=== PATIENT | male | born 1950 | race Caucasian/White ===

== ENCOUNTER → 2017-07-03 | Outpatient (CLI) | payer MEDICARE, OTHER ==
[2017-07-03 09:57] LABS: Basophils % (A) 1 %; CH 31.3; CHCM 33.9; Eosinophils # (A) 0.1 k/uL (0-0.7); Eosinophils % (A) 2 %; HCT 43.6 % (39.0-53.0); HDW 2.73; HGB 14.4 gm/dL (13.0-17.5); Luc # (Auto) 0.21; Luc % (Auto) 3; Lymphocytes # (A) 1.7 k/uL (1.0-4.8); Lymphocytes % (A) 23 %; MCH 30.6 pg (25.0-35.0); MCV 92.7 fL (80.0-100.0); Mean Platelet Volume 7.5; Monocytes # (A) 0.5 k/uL (0-1.0); Monocytes % (A) 7 %; Neutrophils # (A) 4.8 k/uL (1.3-7.7); Neutrophils % (A) 66 %; RDW 12.8 % (11.5-15.5); WBC 7.3 k/uL (3.8-10.6); WBC (Perox) 7.43
[2017-07-03 10:14] LABS: ALT 50 U/L (21-72); AST 32 U/L (17-59); Alkaline Phosphatase 56 U/L (38-126); Anion Gap 6 mmol/L; Blood Urea Nitrogen 12 mg/dL (9-20); Calcium 9.1 mg/dL (8.4-10.2); Carbon Dioxide 31 mmol/L (22-30); Chloride 102 mmol/L (98-107); Cholesterol 127 mg/dL (<200); Glucose 93 mg/dL (74-99); HDL Cholesterol 35 mg/dL (40-60); Non-African American GFR(MDRD) >60 (>60 ml/min/1.73 sqM); Potassium 4.4 mmol/L (3.5-5.1); Sodium 139 mmol/L (137-145); Total Bilirubin 0.6 mg/dL (0.2-1.3)
== END | disposition home or self-care (01) ==
LOC: LABWHC1 09:07
PROVIDERS: ATTEND Internal Medicine
DX: E78.5 Hyperlipidemia, unspecified (principal); I10 Essential (primary) hypertension
CPT/HCPCS: 36415; 80053; 80061; 84439; 84443; 85025; 86803

== ENCOUNTER → 2018-06-26 | Outpatient (CLI) | payer MEDICARE, OTHER | END | disposition home or self-care (01) | LOC: LABWHC1 09:02 | PROVIDERS: ATTEND Internal Medicine | DX: Z53.9 Procedure and treatment not carried out, unspecified reason (principal) ==

== ENCOUNTER → 2018-07-06 | Outpatient (CLI) | payer MEDICARE, OTHER ==
[2018-07-06 09:02] LABS: Basophils % (A) 1 %; Eosinophils # (A) 0.1 k/uL (0-0.7); Eosinophils % (A) 2 %; HCT 43.5 % (39.0-53.0); HGB 14.7 gm/dL (13.0-17.5); Lymphocytes # (A) 1.5 k/uL (1.0-4.8); Lymphocytes % (A) 30 %; MCH 30.3 pg (25.0-35.0); MCHC 33.7 g/dL (31.0-37.0); MCV 89.8 fL (80.0-100.0); Mean Platelet Volume 7.6; Monocytes # (A) 0.4 k/uL (0-1.0); Monocytes % (A) 9 %; Neutrophils # (A) 2.8 k/uL (1.3-7.7); Neutrophils % (A) 56 %; Platelet Count 191 k/uL (150-450); RBC 4.84 m/uL (4.30-5.90); RDW 13.4 % (11.5-15.5); WBC 4.9 k/uL (3.8-10.6)
[2018-07-06 17:29] LABS: Albumin 4.3 g/dL (3.80-4.90); Albumin/Globulin Ratio 1.95 (1.20-2.10); Anion Gap 8.2 mmol/L (4.00-12.00); Calcium 8.9 mg/dL (8.7-10.3); Carbon Dioxide 26.8 mmol/L (21.6-31.8); Globulin 2.2 g/dL (2.1-3.7); Potassium 4.3 mmol/L (3.5-5.5); Total Bilirubin 0.9 mg/dL (0.3-1.2); Total Protein 6.5 g/dL (6.2-8.2)
[2018-07-06 17:30] LABS: LDL Cholesterol,Calculated 73.6 mg/dL (0.0-131.0); VLDL Calculation 35.4 mg/dL (5.00-40.00)
== END | disposition home or self-care (01) ==
LOC: LABWHC1 08:20
PROVIDERS: ATTEND Internal Medicine
DX: E78.5 Hyperlipidemia, unspecified (principal); I10 Essential (primary) hypertension
CPT/HCPCS: 84439; 80061; 80053; 84443; 85025; 36415; G0103

== ENCOUNTER → 2019-07-08 | Outpatient (CLI) | payer MEDICARE, OTHER ==
[2019-07-08 10:49] LABS: Basophils % (A) 1 %; Eosinophils # (A) 0.1 k/uL (0-0.7); Eosinophils % (A) 2 %; HCT 43.9 % (39.0-53.0); HGB 14.7 gm/dL (13.0-17.5); Lymphocytes # (A) 1.6 k/uL (1.0-4.8); Lymphocytes % (A) 35 %; MCH 30.2 pg (25.0-35.0); MCHC 33.5 g/dL (31.0-37.0); MCV 90.2 fL (80.0-100.0); Mean Platelet Volume 7.5; Monocytes # (A) 0.4 k/uL (0-1.0); Monocytes % (A) 8 %; Neutrophils # (A) 2.4 k/uL (1.3-7.7); Neutrophils % (A) 51 %; Platelet Count 191 k/uL (150-450); RBC 4.86 m/uL (4.30-5.90); RDW 12.8 % (11.5-15.5); WBC 4.6 k/uL (3.8-10.6)
[2019-07-08 16:02] LABS: Albumin 4.3 g/dL (3.80-4.90); Albumin/Globulin Ratio 1.95 (1.60-3.17); Anion Gap 9.3 mmol/L (4.00-12.00); BUN/Creat Ratio 15.45 Ratio (12.00-20.00); Carbon Dioxide 26.7 mmol/L (21.6-31.8); Chol/HDL Ratio 3.97; Globulin 2.2 g/dL (1.6-3.3); LDL Cholesterol,Calculated 72.6 mg/dL (0.0-131.0); Non-African American GFR(CKD) 68.1 (60.0-200.0); Potassium 4.2 mmol/L (3.5-5.5); Total Bilirubin 0.9 mg/dL (0.2-1.2); Total Protein 6.5 g/dL (6.2-8.2); VLDL Calculation 40.4 mg/dL (5.00-40.00)
[2019-07-08 16:09] LABS: T4, Free (Free Thyroxine) 0.9 ng/dL (0.80-1.80)
[2019-07-08 20:49] LABS: Hemoglobin A1C 5.3 % (4.0-6.0)
== END | disposition home or self-care (01) ==
LOC: LABWHC1 09:26
PROVIDERS: ATTEND Internal Medicine
DX: Z00.00 Encounter for general adult medical examination without abnormal findings (principal); E78.5 Hyperlipidemia, unspecified; I10 Essential (primary) hypertension; E11.9 Type 2 diabetes mellitus without complications; Z12.5 Encounter for screening for malignant neoplasm of prostate
CPT/HCPCS: 36415; 80053; 80061; 83036; 84153; 84439; 84443; 85025

== ENCOUNTER → 2020-07-09 | Outpatient (CLI) | payer MEDICARE, OTHER | END | disposition home or self-care (01) | LOC: LABWHC1 12:08 | PROVIDERS: ATTEND Internal Medicine | DX: R05 Cough (principal) | CPT/HCPCS: U0003; C9803 ==

== ENCOUNTER → 2020-11-02 | Outpatient (CLI) | payer MEDICARE, OTHER ==
[2020-11-02 15:13] LABS: Basophils # (A) 0.03 X 10*3/uL (0.00-0.10); Basophils % (A) 0.6 %; Eosinophils % (A) 1.9 %; HCT 44.6 % (39.6-50.0); HGB 14.8 g/dL (13.0-17.0); Lymphocytes # (A) 1.69 X 10*3/uL (0.90-5.00); Lymphocytes % (A) 31.9 %; MCH 30.5 pg (27.0-32.0); MCHC 33.2 g/dL (32.0-37.0); MCV 91.8 fL (80.0-97.0); Mean Platelet Volume 11.4 fL (9.5-12.2); Monocytes # (A) 0.61 X 10*3/uL (0.20-1.00); Monocytes % (A) 11.5 %; Neutrophils # (A) 2.85 X 10*3/uL (1.80-7.70); Neutrophils % (A) 53.7 %; Platelet Count 180 X 10*3/uL (140-440); RBC 4.86 X 10*6/uL (4.40-5.60); RDW 12.2 % (11.5-14.5)
[2020-11-02 16:25] LABS: African American GFR (CKD) 78.4 (60.0-200.0); Albumin 4.2 g/dL (3.80-4.90); Albumin/Globulin Ratio 1.91 (1.60-3.17); Anion Gap 4.9 mmol/L (4.00-12.00); BUN/Creat Ratio 10.91 Ratio (12.00-20.00); Calcium 8.9 mg/dL (8.7-10.3); Carbon Dioxide 29.1 mmol/L (21.6-31.8); Chol/HDL Ratio 3.62; Globulin 2.2 g/dL (1.6-3.3); LDL Cholesterol,Calculated 68.4 mg/dL (0.0-131.0); Non-African American GFR(CKD) 67.7 (60.0-200.0); Potassium 4.1 mmol/L (3.5-5.5); Total Protein 6.4 g/dL (6.2-8.2); VLDL Calculation 33.6 mg/dL (5.00-40.00)
== END | disposition home or self-care (01) ==
LOC: LABWHC1 09:18
PROVIDERS: ATTEND Internal Medicine
DX: Z00.00 Encounter for general adult medical examination without abnormal findings (principal); E78.5 Hyperlipidemia, unspecified; I10 Essential (primary) hypertension
CPT/HCPCS: 36415; 80053; 80061; 84439; 84443; 85025

== ENCOUNTER 2021-01-10 11:34 | Emergency (ER) | payer MEDICARE, OTHER ==
[2021-01-10 11:58] VITALS: RESP 18
[2021-01-10] MEDS ORDERED: KETOROLAC 15 MG/ML 1 ML VIAL IM STA (12:10)
[2021-01-10] MEDS ORDERED: methylPREDNISolone SOD SUCCI 125 MG/2 ML VIAL IM ONE (12:10)
--- NOTE | 2021-01-10 12:36 | ED ---
General Adult HPI - General Chief complaint: Abdominal Pain Stated complaint: lt hip pain Time Seen by Provider: 01/10/21 12:03 Source: patient, family, RN notes reviewed Mode of arrival: ambulatory Limitations: no limitations - History of Present Illness Initial comments: Patient is a 70-year-old male that presents to the emergency department complaining of left low back and hip pain. He notes he was walking up the stairs when he felt a pop and then started noticing some pain radiating down his left leg. He notes that he does not have a history of sciatica but does have a history of some back pain. She noted while he was lying there and not moving pain was approximately 20 out of 10. He denied any bladder or bowel incontinence/retention. She denied any chest pain shortness breath headache nausea vomiting diarrhea constipation fever fatigue chills decreased range of motion or strength in his left lower extremity. - Related Data Home Medications Medication Instructions Recorded Confirmed Levothyroxine Sodium [Synthroid] 50 mcg PO DAILY 01/10/21 01/10/21 Lisinopril-Hctz 20-12.5 mg 1 tab PO DAILY 01/10/21 01/10/21 [Zestoretic 20-12.5] Lovastatin [Mevacor] 20 mg PO DAILY 01/10/21 01/10/21 Previous Rx's Medication Instructions Recorded Cyclobenzaprine [Flexeril] 10 mg PO TID PRN #15 tab 01/10/21 Allergies Allergy/AdvReac Type Severity Reaction Status Date / Time aspirin AdvReac See comment Verified 01/10/21 14:04 Review of Systems ROS Statement: Those systems with pertinent positive or pertinent negative responses have been documented in the HPI. ROS Other: All systems not noted in ROS Statement are negative. Past Medical History Past Medical History: Hyperlipidemia, Hypertension, Thyroid Disorder History of Any Multi-Drug Resistant Organisms: None Reported Past Surgical History: Hernia Repair Additional Past Surgical History / Comment(s): Bilateral carpal tunnel Past Psychological History: No Psychological Hx Reported Smoking Status: Never smoker Past Alcohol Use History: Rare Past Drug Use History: None Reported General Exam Limitations: no limitations General appearance: alert, in no apparent distress, obese Head exam: Present: atraumatic, normocephalic, normal inspection Eye exam: Present: normal appearance, PERRL, EOMI. Absent: scleral icterus, conjunctival injection, periorbital swelling Neck exam: Present: normal inspection Respiratory exam: Present: normal lung sounds bilaterally. Absent: respiratory distress, wheezes, rales, rhonchi, stridor Cardiovascular Exam: Present: regular rate, normal rhythm, normal heart sounds. Absent: systolic murmur, diastolic murmur, rubs, gallop, clicks GI/Abdominal exam: Present: soft, normal bowel sounds. Absent: distended, tenderness, guarding, rebound, rigid Extremities exam: Present: normal inspection, full ROM, normal capillary refill. Absent: tenderness, pedal edema, joint swelling, calf tenderness Back exam: Present: normal inspection, tenderness (Over the left SI), other (Positive well leg raise test on the left.) Neurological exam: Present: alert, oriented X3, CN II-XII intact Expanded Motor strength exam: RUE: 5, LUE: 5, RLE: 5, LLE: 5 DTR: Patellar (R): 2+, Patellar (L): 2+ Psychiatric exam: Present: normal affect, normal mood Skin exam: Present: warm, dry, intact, normal color. Absent: rash Course Vital Signs 01/10/21 11:53 Temperature 97.4 F L Pulse Rate 81 Respiratory 18 Rate Blood Pressure 118/78 O2 Sat by Pulse 95 Oximetry Medical Decision Making - Medical Decision Making 7-year-old male complaining of left lower back and hip pain that radiates down the left leg. X-ray the lumbar spine, 15 mg of Toradol, 125 mg of Solu-Medrol ordered. X-ray negative for any acute osseous abnormalities. Case discussed with Dr. Cifuentes, patient can discharge home with follow-up to primary care. - Radiology Data Radiology results: report reviewed, image reviewed Lumbar x-ray: There are 5 lumbar type vertebral bodies identified. There is transitional L6-type vertebrae. There is grade 1 anterior listhesis of L5 on L6. Mild multilevel disc space narrowing with moderate multilevel anterior and lateral spurring. For Tebo body heights are maintained. No acute fracture dislocation seen. Overlying soft tissues unremarkable. Disposition Clinical Impression: Sciatica, Mechanical back pain Disposition: HOME SELF-CARE Condition: Stable Instructions (If sedation given, give patient instructions): Sciatica (ED), Lumbar Radiculopathy (ED), Lower Back Exercises (ED) Additional Instructions: Please return to the Emergency Department if symptoms worsen or any other concerns. Follow-up with primary care in 3-5 days, potentially get a prescription for physical therapy. Avoid any shortness activity or lifting. Take muscle relaxers as prescribed. Can take, Motrin for symptom control. Prescriptions: Cyclobenzaprine [Flexeril] 10 mg PO TID PRN #15 tab PRN Reason: Muscle Spasm Is patient prescribed a controlled substance at d/c from ED?: No Referrals: Paige Rhodes MD [Primary Care Provider] - 1-2 days Time of Disposition: 14:24
--- NOTE | 2021-01-10 14:02 | XR ---
EXAMINATION TYPE: XR lumbar spine 2 or 3V DATE OF EXAM: 01/10/2021 CLINICAL HISTORY: Low back pain. TECHNIQUE: Frontal and lateral images of the lumbar spine are obtained. COMPARISON: None FINDINGS: There are 5 lumbar type vertebral bodies identified. There is transitional L6 type vertebr a. There is grade 1 anterolisthesis of L5 on L6. Mild multilevel disc space narrowing with moderate m ultilevel anterior and lateral spurring. Vertebral body heights maintained. No acute fracture or disl ocation is seen. Overlying Soft tissue is unremarkable. IMPRESSION: As above.
[2021-01-10 14:32] VITALS: BP 113/72; PULSE 70; TEMP 97.5
== END 2021-01-10 14:34 | disposition home or self-care (01) ==
LOC: EC 11:34
DX: M54.42 Lumbago with sciatica, left side (principal); E78.5 Hyperlipidemia, unspecified; I10 Essential (primary) hypertension; E07.9 Disorder of thyroid, unspecified; Z79.899 Other long term (current) drug therapy; Z88.6 Allergy status to analgesic agent
CPT/HCPCS: 72100; 99283; 96372 ×2; J2930; J1885

== ENCOUNTER → 2021-11-15 | Outpatient (CLI) | payer MEDICARE, OTHER ==
[2021-11-15 14:21] LABS: Basophils # (A) 0.04 X 10*3/uL (0.00-0.10); Basophils % (A) 0.9 %; Eosinophils # (A) 0.15 X 10*3/uL (0.04-0.35); Eosinophils % (A) 3.2 %; HCT 44.4 % (39.6-50.0); HGB 14.9 g/dL (13.0-17.0); Immature Grans, Automated 0.2 %; Lymphocytes # (A) 1.41 X 10*3/uL (0.90-5.00); Lymphocytes % (A) 30.5 %; MCH 30.8 pg (27.0-32.0); MCHC 33.6 g/dL (32.0-37.0); MCV 91.9 fL (80.0-97.0); Monocytes # (A) 0.46 X 10*3/uL (0.20-1.00); NRBC Per 100 WBC 0 /100 WBCS (0.0-0.0); Neutrophils # (A) 2.55 X 10*3/uL (1.80-7.70); Neutrophils % (A) 55.2 %; Platelet Count 192 X 10*3/uL (140-440); RBC 4.83 X 10*6/uL (4.40-5.60); RDW 12.6 % (11.5-14.5); WBC 4.62 X 10*3/uL (4.50-10.00)
[2021-11-15 16:53] LABS: ALT 37 U/L (10-49); AST 30 U/L (14-35); African American GFR (CKD) 86.3 (60.0-200.0); Albumin 4.2 g/dL (3.8-4.9); Albumin/Globulin Ratio 1.49 (1.60-3.17); Alkaline Phosphatase 49 U/L (41-126); BUN/Creat Ratio 12.08 Ratio (12.00-20.00); Blood Urea Nitrogen 12.2 mg/dL (9.0-27.0); Calcium 8.8 mg/dL (8.7-10.3); Carbon Dioxide 25.6 mmol/L (20.0-27.5); Chloride 104 mmol/L (96-109); Chol/HDL Ratio 3.54 Ratio; Globulin 2.8 g/dL (1.6-3.3); Glucose 98 mg/dL (70-110); LDL Cholesterol,Calculated 79.6 mg/dL (0.0-131.0); Non-African American GFR(CKD) 74.5 (60.0-200.0); Potassium 4.6 mmol/L (3.5-5.5); Sodium 139 mmol/L (135-145); Total Protein 6.9 g/dL (6.2-8.2)
== END | disposition home or self-care (01) ==
LOC: LABWHC1 09:59
PROVIDERS: ATTEND Internal Medicine
DX: Z00.00 Encounter for general adult medical examination without abnormal findings (principal); E78.5 Hyperlipidemia, unspecified; I10 Essential (primary) hypertension
CPT/HCPCS: 36415; 80053; 80061; 84439; 84443; 85025

== ENCOUNTER → 2022-06-14 | Outpatient (CLI) | payer MEDICARE, OTHER ==
--- NOTE | 2022-06-14 14:45 | P.SLEEP ---
History of Present Illness DATE: 06/14/2022 CONSULTATION/NEW PATIENT EVALUATION HISTORY OF PRESENT ILLNESS/SLEEP-WAKE EVALUATION: 72year old gentleman had b een evaluated in the sleep center for obstructive sleep apnea hypopnea syndrome. Patient was treated in our institution for obstructive sleep apnea hypopnea syndrome for many years. Last time I saw him in 2013. He continued to use his CPAP equipment every night for the whole night. I checked his CPAP unit. It's old, motor life expectancy exceeded. Pressure is 12 cm of water. Usage is 100% of nights for 6.7 hours. Machine doesn't have information about apnea-hypopnea index SLEEP SCHEDULE: Usually sleep schedule from 11 PM to 6 AM 7 days. FALLING ASLEEP: No problems with falling asleep. DURING SLEEP: No snoring while patient is on treatment with CPAP. No awakenings from sleep. No history of hypnogogical hallucinations, sleep paralysis, or cataplexy. DURING THE DAY/WAKE STATE: No sleepiness during the day. [place] sleepiness scale is 4. Patient doesn't take naps. PAST MEDICAL HISTORY: Hypertension, hyperlipidemia, hypothyroidism. PAST SURGICAL HISTORY: Bilateral treatment of carpal tunnel syndrome, surgery for an umbilical hernia. MEDICATIONS: Losartan 20 mg once a day, levothyroxine 50 g once a day, lisinoprilhydrochlorothiazide 2012.5 mg once a day. SOCIAL HISTORY: Negative for smoking , alcohol consumption none. FAMILY HISTORY: Diabetes. REVIEW OF SYSTEMS: No snoring or awakenings while using CPAP. No fevers. No double vision. No recent chest pain. No shortness of breath. No abdominal pain. No bleeding episodes. No blood in urine. No seizure episodes. PHYSICAL EXAMINATION: GENERAL: A pleasant patient without any distress. VITAL SIGNS: BP 123/65 , HR 76 , RR 16 , weight 268 pounds, height 5 foot 7 inches, body mass index 41.9 . HEENT: PERRLA, EOMI. Evaluation of oropharynx showed tongue protrudes midline, low position of soft palate Mallampati 4. NECK: Supple. No JVD. Thyroid is not palpable. 18.5 inches in circumference. LUNGS: Clear to percussion and to auscultation. Good air exchange. No wheezing or rhonchi. HEART: S1, S2 regular. No murmurs, gallops or rubs. ABDOMEN: Soft and nontender. Bowel sounds are present. No organomegaly appreciated. Obese EXTREMITIES: No clubbing or cyanosis. JUMPBASTING FACING BASTER: Awake, alert, and oriented x3. Cranial nerves 2 to 7 intact. There is no fasciculation or atrophy noted. No focal deficits observed. ASSESSMENT: 1. Obstructive sleep apnea hypopnea syndrome. Patient demonstrated to 100% compliance with treatment, benefiting from treatment. CPAP unit is old, does not have information about apnea-hypopnea index. 2. Obesity body mass index 41.9. 3 hypertension. 4. Hypothyroidism. 5 hyperlipidemia. 6. Status post surgical treatment for carpal tunnel syndrome bilaterally. 7. Status post surgical treatment for umbilical hernia. PLAN: 1. Continue to use CPAP equipment every night for the whole night 2. Prescription to replace CPAP unit on with the AutoPAP pressure 6-15 cm of water, Comfort Gel blue small nasal mask, heated tube, heated humidifier 3. Follow-up visit in 12 months after patient will get new CPAP unit. I will check a apnea-hypopnea index on CPAP, compliance with treatment and make any necessary adjustments related to mask fitting pressure and humidification 4. No driving if patient feels any sleepiness. Patient is aware of civil and criminal liability for unsafe driving. 5. Sleep hygiene with regular sleep time for at least 7.5-8 hours. 6. Watching and losing weight. Thank you very much for referring this patient for consultation. Sincerely, Nicolas Hatfield MD, PhD, FAASM. Diplomat of [place] [employer], Sleep Medicine Board by [employer] Child Care Aide [facility] [place] Past Medical History Past Medical History: Hyperlipidemia, Hypertension, Thyroid Disorder History of Any Multi-Drug Resistant Organisms: None Reported Past Surgical History: Hernia Repair Additional Past Surgical History / Comment(s): Bilateral carpal tunnel Past Psychological History: No Psychological Hx Reported Smoking Status: Never smoker Past Alcohol Use History: Rare Past Drug Use History: None Reported Medications and Allergies Home Medications Medication Instructions Recorded Confirmed Type Cyclobenzaprine [Flexeril] 10 mg PO TID PRN #15 tab 01/10/21 Rx Levothyroxine Sodium [Synthroid] 50 mcg PO DAILY 01/10/21 01/10/21 History Lisinopril-Hctz 20-12.5 mg 1 tab PO DAILY 01/10/21 01/10/21 History [Zestoretic 20-12.5] Lovastatin [Mevacor] 20 mg PO DAILY 01/10/21 01/10/21 History Allergies Allergy/AdvReac Type Severity Reaction Status Date / Time aspirin AdvReac See comment Verified 01/10/21 14:04
== END ==
LOC: SLEEP 13:29
PROVIDERS: ATTEND Internal Medicine
DX: G47.33 Obstructive sleep apnea (adult) (pediatric) (principal); Z99.89 Dependence on other enabling machines and devices; I10 Essential (primary) hypertension; E03.9 Hypothyroidism, unspecified; E78.5 Hyperlipidemia, unspecified; Z98.890 Other specified postprocedural states; Z79.899 Other long term (current) drug therapy
CPT/HCPCS: 99211

== ENCOUNTER 2022-12-01 21:51 | Emergency (ER) | payer MEDICARE, OTHER ==
[2022-12-01 22:33] VITALS: BP 136/83; PULSE 98; RESP 18; TEMP 98.4
--- NOTE | 2022-12-01 23:59 | XR ---
EXAMINATION TYPE: XR Hip LT and AP Pelvis DATE OF EXAM: 12/01/2022 11:43 PM INDICATION: Patient age:Male; 72 years old; Reason for study: pain; COMPARISON: None. TECHNIQUE: The left hip was examined in the frontal and lateral projections and a AP pelvis. FINDINGS: Osteophyte formation of the acetabulum bilaterally. There is mild joint space tearing of th e hips. There is multilevel disc degeneration changes of the spine. Scattered pelvic phlebolith are p resent. No evidence for acute process, joint dislocation or significant soft tissue swelling. IMPRESSION: 1. No acute process. 2. [id number] bilateral hip osteoporosis.
--- NOTE | 2022-12-02 00:45 | ED ---
Lower Extremity Injury HPI - General Chief Complaint: Extremity Injury, Lower Stated Complaint: Left Hip Pain Time Seen by Provider: 12/01/22 23:14 Source: patient, RN notes reviewed Mode of arrival: ambulatory Limitations: no limitations - History of Present Illness Initial Comments: Patient 72 male presenting to the emergency room complaints of left hip pain after a twisting motion while walking earlier today and hearing a popping noise. He reports tenderness on the lateral aspect of his hip but denies any range of motion impairment, swelling, buckling or weakness. He denies any fall or trauma to the hip region. He denies any other complaints or concerns at this time. He has a past medical history significant for hypertension, h yperlipidemia, hypothyroidism and gastric ulcer. - Related Data Home Medications Medication Instructions Recorded Confirmed Levothyroxine Sodium [Synthroid] 50 mcg PO DAILY 01/10/21 01/10/21 Lisinopril-Hctz 20-12.5 mg 1 tab PO DAILY 01/10/21 01/10/21 [Zestoretic 20-12.5] Lovastatin [Mevacor] 20 mg PO DAILY 01/10/21 01/10/21 Previous Rx's Medication Instructions Recorded Cyclobenzaprine [Flexeril] 10 mg PO TID PRN #15 tab 01/10/21 Allergies Allergy/AdvReac Type Severity Reaction Status Date / Time aspirin AdvReac See comment Verified 12/01/22 22:29 Review of Systems ROS Statement: Those systems with pertinent positive or pertinent negative responses have been documented in the HPI. ROS Other: All systems not noted in ROS Statement are negative. Past Medical History Past Medical History: Hyperlipidemia, Hypertension, Thyroid Disorder History of Any Multi-Drug Resistant Organisms: None Reported Past Surgical History: Hernia Repair Additional Past Surgical History / Comment(s): Bilateral carpal tunnel Past Psychological History: No Psychological Hx Reported Smoking Status: Never smoker Past Alcohol Use History: Rare Past Drug Use History: None Reported General Exam Limitations: no limitations General appearance: alert, in no apparent distress Head exam: Present: atraumatic, normocephalic, normal inspection Eye exam: Present: normal appearance, PERRL, EOMI. Absent: scleral icterus, conjunctival injection, periorbital swelling ENT exam: Present: normal exam, mucous membranes moist Neck exam: Present: normal inspection, full ROM Respiratory exam: Absent: respiratory distress, accessory muscle use Cardiovascular Exam: Present: regular rate GI/Abdominal exam: Absent: distended Left Hip exam: Present: full ROM, tenderness (Lateral aspect, mild). Absent: swelling, abrasion, laceration, ecchymosis, deformity, crepitus, dislocation, erythema, external rotation, internal rotation, shortening Neurovascular tendon exam: Present: no vascular compromise Gait: observed and limited by pain Back exam: Present: normal inspection Neurological exam: Present: alert, oriented X3, CN II-XII intact Psychiatric exam: Present: normal affect, normal mood Skin exam: Present: warm, dry, intact, normal color. Absent: rash Course Vital Signs 12/01/22 22:29 Temperature 98.4 F Pulse Rate 98 Respiratory 18 Rate Blood Pressure 136/83 O2 Sat by Pulse 96 Oximetry Medical Decision Making - Medical Decision Making Was pt. sent in by a medical professional or institution (Dr. PA, LIBRARY CIRCULATION CLERK, urgent care, hospital, or custodial...) When possible be specific @ -No Did you speak to anyone other than the patient for history (EMS, parent, family, police, friend...)? What history was obtained from this source @ -No Did you review nursing and triage notes (agree or disagree)? Why? @ -I reviewed and agree with nursing and triage notes Were old charts reviewed (outside hosp., previous admission, EMS record, old EKG, old radiological studies, urgent care reports/EKG's, custodial records)? Report findings @ -No old charts were reviewed Differential Diagnosis (chest pain, altered mental status, abdominal pain women, abdominal pain men, vaginal bleeding, weakness, fever, dyspnea, syncope, headache, dizziness, GI bleed, back pain, seizure, CVA, palpatations, mental health, musculoskeletal)? @ -Differential Musculoskeletal Muscular strain, contusion, ligament sprain, fracture, arthritis, septic arthritis, bursitis, cellulitis, muscle spasm, nerve compression, DVT, arterial occlusion, herpes zoster, electrolyte abnormality, tumor.... This is not meant to be in all inclusive list EKG interpreted by me (3pts min.). @ -None done X-rays interpreted by me (1pt min.). @ -X-rays AP pelvis and left hip: No fracture or dislocation. Osteoarthritis noted. CT interpreted by me (1pt min.). @ -None done U/S interpreted by me (1pt. min.). @ -None done What testing was considered but not performed or refused? (CT, X-rays, U/S, labs)? Why? @ -None What meds were considered but not given or refused? Why? @ -None Did you discuss the management of the patient with other professionals (professionals i.e. , PA, LIBRARY CIRCULATION CLERK, lab, RT, psych nurse, social professionals, elementary special education teacher, teacher, chief compliance officer, case management social worker)? Give summary @ -No Was smoking cessation discussed for >3mins.? @ -No Was critical care preformed (if so, how long)? @ -No Were there social determinants of health that impacted care today? How? (Homelessness, low income, unemployed, alcoholism, drug addiction, transportation, low edu. Level, literacy, decrease access to med. care, long term, rehab)? @ -No Was there de-escalation of care discussed even if they declined (Discuss DNR or withdrawal of care, Hospice)? DNR status @ -No What co-morbidities impacted this encounter? (DM, HTN, Smoking, COPD, CAD, Cancer, CVA, ARF, Chemo, Hep., AIDS, mental health diagnosis, sleep apnea, morbid obesity)? @ -None Was patient admitted / discharged? Hospital course, mention meds given and route, prescriptions, significant lab abnormalities, going to OR and other pertinent info. @ -32-year-old male presenting to the emergency room complaints of left hip pain after twisting suddenly earlier today while walking. He reports hearing a popping noise. He denies any range of motion impairment. Currently laying in bed not moving pain is tolerable denies any analgesic need. Will obtain x-ray to evaluate for fracture or dislocation however high probability for strain. X-ray negative for fracture or dislocation. Findings discussed with patient and spouse at bedside. Advised range of motion as tolerated, use of anti-in flammatories to help with pain as needed along with he and ice application. Encouraged follow-up with primary care provider and possible referral to orthopedist if symptoms persist. Return parameters to the emergency room discussed. Will discharge home in stable condition with conservative management of with [id number] analgesics for left hip sprain advising follow-up with primary care provider. Undiagnosed new problem with uncertain prognosis? @ -No Drug Therapy requiring intensive monitoring for toxicity (Heparin, Nitro, Insulin, Cardizem)? @ -No Were any procedures done? @ -No Diagnosis/symptom? @ -Left hip sprain Acute, or Chronic, or Acute on Chronic? @ -Acute Uncomplicated (without systemic symptoms) or Complicated (systemic symptoms)? @ -Uncomplicated Side effects of treatment? @ -No Exacerbation, Progression, or Severe Exacerbation? @ -No Poses a threat to life or bodily function? How? (Chest pain, [place], SD, pneumonia, PE, COPD, DKA, ARF, appy, cholecystitis, CVA, Diverticulitis, Homicidal, Suicidal, threat to staff... and all critical care pts) @ -No Case discussed with Dr. Martinez - Radiology Data Radiology results: report reviewed, image reviewed Disposition Clinical Impression: Sprain of left hip Disposition: HOME SELF-CARE Condition: Stable Instructions (If sedation given, give patient instructions): Hip Sprain (ED) Additional Instructions: Gentle range of motion encouraged. Avoid high impact activities such as jumping or squatting. Anti-inflammatories such as Motrin may help reduce pain. Utilize ice or heat in 20 minute increments every 3-4 hours as needed for pain as well. Please follow-up with your primary care provider. Please return to the Emergency Department if symptoms worsen or any other concerns. Is patient prescribed a controlled substance at d/c from ED?: No Referrals: Paige Rhodes MD [Primary Care Provider] - 1-2 days Time of Disposition: 00:45
== END 2022-12-02 01:33 | disposition home or self-care (01) ==
LOC: EC 21:51
DX: S73.102A Unspecified sprain of left hip, initial encounter (principal); I10 Essential (primary) hypertension; E03.9 Hypothyroidism, unspecified; E78.5 Hyperlipidemia, unspecified; Z88.6 Allergy status to analgesic agent; Z79.890 Hormone replacement therapy; Z79.899 Other long term (current) drug therapy; X50.1XXA Overexertion from prolonged static or awkward postures, initial encounter; Y93.01 Activity, walking, marching and hiking
CPT/HCPCS: 73502; 99283

== ENCOUNTER → 2022-12-05 | Outpatient (CLI) | payer MEDICARE, OTHER ==
[2022-12-05 16:27] LABS: ALT 55 U/L (10-49); AST 40 U/L (14-35); African American GFR (CKD) 81.8 (60.0-200.0); Alkaline Phosphatase 48 U/L (41-126); BUN/Creat Ratio 18.86 Ratio (12.00-20.00); Blood Urea Nitrogen 19.8 mg/dL (9.0-27.0); Calcium 9.3 mg/dL (8.7-10.3); Carbon Dioxide 26.7 mmol/L (20.0-27.5); Chloride 104 mmol/L (96-109); Chol/HDL Ratio 3.52 Ratio; Globulin 2.5 g/dL (1.6-3.3); Glucose 97 mg/dL (70-110); LDL Cholesterol,Calculated 75.3 mg/dL (0.0-131.0); Non-African American GFR(CKD) 70.6 (60.0-200.0); Potassium 4.7 mmol/L (3.5-5.5); Sodium 141 mmol/L (135-145); Total Protein 6.6 g/dL (6.2-8.2)
[2022-12-05 16:55] LABS: Basophils # (A) 0.04 X 10*3/uL (0.00-0.10); Basophils % (A) 0.7 %; Eosinophils # (A) 0.12 X 10*3/uL (0.04-0.35); Eosinophils % (A) 2.1 %; HCT 45.3 % (39.6-50.0); HGB 14.9 g/dL (13.0-17.0); Immature Grans, Automated 0.3 %; Lymphocytes # (A) 1.84 X 10*3/uL (0.90-5.00); Lymphocytes % (A) 31.6 %; MCH 30.8 pg (27.0-32.0); MCHC 32.9 g/dL (32.0-37.0); MCV 93.6 fL (80.0-97.0); Mean Platelet Volume 10.5 fL (9.5-12.2); Monocytes # (A) 0.56 X 10*3/uL (0.20-1.00); Monocytes % (A) 9.6 %; NRBC Per 100 WBC 0 /100 WBCS (0.0-0.0); Neutrophils # (A) 3.25 X 10*3/uL (1.80-7.70); Neutrophils % (A) 55.7 %; Platelet Count 243 X 10*3/uL (140-440); RBC 4.84 X 10*6/uL (4.40-5.60); RDW 12.5 % (11.5-14.5); WBC 5.83 X 10*3/uL (4.50-10.00)
== END | disposition home or self-care (01) ==
LOC: LABWHC1 10:08
PROVIDERS: ATTEND Internal Medicine Interventional Cardiology
DX: Z12.5 Encounter for screening for malignant neoplasm of prostate (principal); E78.5 Hyperlipidemia, unspecified
CPT/HCPCS: 84439; 80061; 80053; 84443; 85025; 36415; G0103

== ENCOUNTER → 2022-12-21 | Outpatient (CLI) | payer MEDICARE, OTHER ==
--- NOTE | 2022-12-21 12:43 | P.PN ---
Subjective DATE: 12/21/2022 FOLLOW UP VISIT. Patient with obstructive sleep apnea hypopnea syndrome return to sleep center for follow-up visit. Information from previous visit have been reviewed. Patient received new CPAP unit. This is first visit after he started to use it. Patient is using PAP equipment every night for the whole night, getting PAP supplies in time. The patient does not have significant problems with the mask, PAP unit and humidification. [place] sleepiness scale is 5, which is normal. I checked information from PAP unit. PAP unit pressure 6-16, average 11.1 cm H2O. Usage is 100 % for more then 4 hours, average 7 hours per night. Leak is 0.5 l/m, which is in acceptable range. Apnea Hypopnea Index is 3.6, which is normal. MEDICATIONS:1. Losartan 20 mg once a day 2. Levothyroxine 50 g once a day 3. Lisinopril-hydrochlorothiazide 20-12.5 mg once a day During physical exam: GENERAL: A pleasant patient without any distress. VITAL SIGNS: BP 133/73, HR 92, RR 16 , weight 274.0, temperature 96.7, oxygen saturation at room air 96 % . HEENT: PERRLA, EOMI.low position of soft palate, Mallapati 4 . NECK: Supple. No JVD. LUNGS: Clear to percussion and to auscultation. Good air exchange. No wheezing or rhonchi. HEART: S1, S2 regular. ABDOMEN: Soft and nontender.[] EXTREMITIES: No clubbing or cyanosis. DRAIN CLEANER: Awake, alert, and oriented x3. No focal deficit. Impressions: 1. Obstructive sleep apnea-hypopnea syndrome. Patient demonstrated great compliance with treatment, benefiting from treatment. 2. Obesity. 3. Hypertension. 4. Hypothyroidism. 5. Hyperlipidemia. 6. Status post surgical treatment for carpal tunnel syndrome bilaterally. 7. Status post surgery for umbilical hernia. Plan: 1. Continue using PAP equipment every night for the whole night. 2. To change air filter at least 1-2 times per month. 3. PAP unit should stay lower then position of the head. 4. Advised patient to remove all remaining water from humidifier canister daily and make it dry after each usage. Refill canister with fresh distilled water before each usage. 5. Sleep hygiene with regular time in bed for at least 8 hours. 6. Precautions related to driving. No driving if feel any sleepiness. 7. I will maintain prescription for PAP supplies including mask, tube, filters. 8. Follow up visit in 6 months or earlier if patient has any problems. 9. Watching and losing weight. Thank you very much for allowing me to participate in the management of your patient. Nicolas Hatfield MD, PhD, FAASM. Diplomat of [place] [employer], Sleep Medicine Board by [place] [employer] Design Maker of [facility] [place]
== END ==
LOC: SLEEP 10:44
PROVIDERS: ATTEND Internal Medicine
DX: G47.33 Obstructive sleep apnea (adult) (pediatric) (principal); Z79.890 Hormone replacement therapy; E03.9 Hypothyroidism, unspecified; E66.9 Obesity, unspecified; E78.5 Hyperlipidemia, unspecified; I10 Essential (primary) hypertension; K42.9 Umbilical hernia without obstruction or gangrene; Z79.899 Other long term (current) drug therapy; Z98.890 Other specified postprocedural states; Z99.89 Dependence on other enabling machines and devices; Z88.6 Allergy status to analgesic agent
CPT/HCPCS: 99212

== ENCOUNTER → 2023-06-06 | Outpatient (CLI) | payer MEDICARE ==
[2023-06-06 10:58] LABS: Basophils # (A) 0.03 X 10*3/uL (0.00-0.10); Basophils % (A) 0.5 %; Eosinophils # (A) 0.12 X 10*3/uL (0.04-0.35); Eosinophils % (A) 2.1 %; HCT 42.7 % (39.6-50.0); HGB 14.3 d/dL (13.0-17.0); Lymphocytes # (A) 1.58 X 10*3/uL (0.90-5.00); Lymphocytes % (A) 27.7 %; MCH 30.8 pg (27.0-32.0); MCHC 33.5 d/dL (32.0-37.0); Mean Platelet Volume 10.9 FL (9.5-12.2); Monocytes # (A) 0.67 X 10*3/uL (0.20-1.00); Monocytes % (A) 11.8 %; NRBC Per 100 WBC 0 X 10*3/uL (0.00-0.01); Neutrophils # (A) 3.29 X 10*3/uL (1.80-7.70); Neutrophils % (A) 57.7 %; Platelet Count 181 X 10*3/uL (140-440); RBC 4.64 X 10*6/uL (4.40-5.60); RDW 12.4 % (11.5-14.5)
[2023-06-06 11:18] LABS: ALT 42 U/L (10-49); AST 30 U/L (14-35); Albumin/Globulin Ratio 1.54 Ratio (1.60-3.17); Alkaline Phosphatase 57 U/L (41-126); Carbon Dioxide 27.6 mmol/L (21.6-31.8); Chloride 99 mmol/L (96-109); Chol/HDL Ratio 3.52 Ratio; Globulin 2.6 d/dL (1.6-3.3); Glucose 96 mg/dL (70-110); LDL Cholesterol,Calculated 73.9 mg/dL (0.0-131.0); Potassium 4.2 mmol/L (3.5-5.5); Sodium 138 mmol/L (135-145); T4, Free (Free Thyroxine) 0.94 ng/dL (0.80-1.80); Total Bilirubin 0.9 mg/dL (0.3-1.2); Total Protein 6.6 d/dL (6.2-8.2)
== END | disposition home or self-care (01) ==
LOC: LABWHC1 07:10
PROVIDERS: ATTEND Internal Medicine
DX: I10 Essential (primary) hypertension (principal); E78.5 Hyperlipidemia, unspecified
CPT/HCPCS: 36415; 80053; 80061; 84439; 84443; 85025

== ENCOUNTER → 2023-07-11 | Outpatient (CLI) | payer MEDICARE, OTHER ==
--- NOTE | 2023-07-11 11:21 | P.PN ---
Subjective DATE: 07/11/2023 FOLLOW UP VISIT. Patient with obstructive sleep apnea hypopnea syndrome return to sleep center for follow-up visit. Information from previous visit have been reviewed. Patient is using PAP equipment every night for the whole night, getting PAP supplies in time. The patient does not have significant problems with the mask, PAP unit and humidification. [place] sleepiness scale is 7. I checked information from PAP unit. PAP unit pressure 6-15, average 10.6 cm H2O. Usage is 100 % for more then 4 hours, average 6.75 hours per night. Leak is 7.1 l/m, which is in acceptable range. Apnea Hypopnea Index is 4.8, which is normal. MEDICATIONS:1. Lovastatin 20 mg once a day 2. Lisinopril/hydrochlorothiazide 20-12.5 mg once a day 3. Levothyroxine 50 g once a day During physical exam: GENERAL: A pleasant patient without any distress. VITAL SIGNS: BP 130/82, HR 63, RR 12 , weight 264.6, temperature 98.3, oxygen saturation at room air 96 % . HEENT: PERRLA, EOMI.low position of soft palate, Mallapati 4 . NECK: Supple. No JVD. LUNGS: Clear to percussion and to auscultation. Good air exchange. No wheezing or rhonchi. HEART: S1, S2 regular. ABDOMEN: Soft and nontender.[] EXTREMITIES: No clubbing or cyanosis. FORM MAKER PLASTER: Awake, alert, and oriented x3. No focal deficit. Impressions: 1. Obstructive sleep apnea-hypopnea syndrome. Patient demonstrated great compliance with treatment, benefiting from treatment. 2. Obesity, body mass index 41.9, patient lost 10 pounds since previous visit. 3. Hypertension. 4. Hypothyroidism. 5. Hyperlipidemia. 6. Status post surgical treatment for carpal tunnel syndrome bilaterally. 7. Status post surgery for umbilical hernia. Plan: 1. Continue using PAP equipment every night for the whole night. 2. To change air filter at least 1-2 times per month. 3. PAP unit should stay lower then position of the head. 4. Advised patient to remove all remaining water from humidifier canister daily and make it dry after each usage. Refill canister with fresh distilled water before each usage. 5. Sleep hygiene with regular time in bed for at least 8 hours. 6. Precautions related to driving. No driving if feel any sleepiness. 7. I will maintain prescription for PAP supplies including mask, tube, filters. 8. Watching and losing weight. 9. Follow up visit in 6 months or earlier if patient has any problems. Thank you very much for allowing me to participate in the management of your patient. Nicolas Hatfield MD, PhD, FAASM. Diplomat of [place] [employer], Sleep Medicine Board by [place] [employer] Office Chair [facility] [place]
== END ==
LOC: SLEEP 10:40
PROVIDERS: ATTEND Internal Medicine
DX: G47.33 Obstructive sleep apnea (adult) (pediatric) (principal); E66.9 Obesity, unspecified; Z68.41 Body mass index [BMI] 40.0-44.9, adult; I10 Essential (primary) hypertension; E03.9 Hypothyroidism, unspecified; G56.03 Carpal tunnel syndrome, bilateral upper limbs; E78.5 Hyperlipidemia, unspecified; Z87.19 Personal history of other diseases of the digestive system; Z99.89 Dependence on other enabling machines and devices; Z88.6 Allergy status to analgesic agent; Z79.899 Other long term (current) drug therapy; Z79.890 Hormone replacement therapy; Z98.890 Other specified postprocedural states
CPT/HCPCS: 99212

== ENCOUNTER 2023-11-20 09:45 | Day surgery (SDC) | payer MEDICARE, OTHER ==
[2023-11-14 18:08] VITALS: BMI 41.0
[2023-11-20] MEDS: LACTATED RINGERS 1,000 ML IV SCH (10:11)
[2023-11-20 10:43] VITALS: TEMP 98
[2023-11-20] MEDS ORDERED: PROPOFOL 10 MG/ML 20 ML VIAL IV ONE (10:58)
--- NOTE | 2023-11-20 11:15 | P.PCN ---
Date of Procedure: 11/20/23 Procedure(s) Performed: BRIEF HISTORY: Patient is a 73-year-old pleasant White male scheduled for an elective colonoscopy as a part of Screening for colon cancer. PROCEDURE PERFORMED: Colonoscopy. PREOPERATIVE DIAGNOSIS: Screening for colon. IV sedation per Anesthesia. PROCEDURE: After informed consent was obtained, the patient, was brought into the endoscopy unit. IV sedation was administered by Anesthesia under continuous monitoring. Digital rectal examination was normal. Initially the Olympus CF-160 flexible video colonoscope was then inserted in the rectum, gradually advanced into the cecum without any difficulty. Careful examination was performed as the scope was gradually being withdrawn. Ileocecal valve and the appendiceal orifice were visualized and appeared normal. Prep was excellent. Mucosa of the cecum, ascending colon, transverse colon, descending colon, sigmoid colon, and rectum appeared normal. Scattered sigmoid diverticulosis.Retroflexion was performed in the rectum and no lesions were seen. The patient tolerated the procedure well. IMPRESSION: Normal-appearing colon from rectum to cecum With no evidence of colon rectal neoplasia. RECOMMENDATIONS: Findings of this examination were discussed with the patient as well as his family..He was advised to have a repeat screening colonoscopy in 10 years.
[2023-11-20 12:07] VITALS: BP 121/75; PULSE 71; RESP 16
== END 2023-11-20 11:56 | disposition home or self-care (01) ==
LOC: ORWHC2ENDO 09:45
PROVIDERS: ATTEND Internal Medicine Gastroenterology
DX: Z12.11 Encounter for screening for malignant neoplasm of colon (principal); K57.30 Diverticulosis of large intestine without perforation or abscess without bleeding; I10 Essential (primary) hypertension; E78.5 Hyperlipidemia, unspecified; G47.33 Obstructive sleep apnea (adult) (pediatric); E07.9 Disorder of thyroid, unspecified; Q21.0 Ventricular septal defect; Z88.6 Allergy status to analgesic agent; E66.01 Morbid (severe) obesity due to excess calories; Z68.41 Body mass index [BMI] 40.0-44.9, adult; Z79.890 Hormone replacement therapy; Z79.899 Other long term (current) drug therapy; Z79.82 Long term (current) use of aspirin; Z98.890 Other specified postprocedural states
CPT/HCPCS: J2704; G0121

== ENCOUNTER → 2023-11-28 | Outpatient (CLI) | payer MEDICARE, OTHER ==
[2023-11-28 08:45] VITALS: BP 126/85; PULSE 75; RESP 16; TEMP 97.5
--- NOTE | 2023-11-28 11:08 | XR ---
EXAMINATION TYPE: XR lumbar spine 2 or 3V DATE OF EXAM: 11/28/2023 CLINICAL HISTORY: pain TECHNIQUE: Three views of the lumbar spine are submitted. COMPARISON: None. FINDINGS: Severe multilevel degenerative disc disease. Mild rotoscoliosis convex to the right. Grade 1 retrolis thesis of L3 on L4 measuring 8.9 mm. Grade 1 anterolisthesis L4 and L5 of 8.4 mm. Severe facet joint arthropathy. Scattered ventral spondylosis. No evidence for fracture or osseous lesion. IMPRESSION: Advanced degenerative changes.
--- NOTE | 2023-11-28 13:47 | P.PAINPG ---
PQRS Measure Charge Sheet Comment: HISTORY OF PRESENT ILLNESS: A 73 yr old male as a referral from Dr Paige Perry presents today w severe and chronic LBP x 1 yr secondary to DDD, spondylosis and facet arthropathy without myelopathy for evaluation. Pt states pain level is provoked at 8 /10 in intensity, constant, localized in the lower spine, predominantly axial, burning in character w occasional shooting pain towards the BL buttocks, LEs and feet. Pain is provoked by bending, walking, lifting. Pain is alleviated by physician guided exercises weekly since Sep 2023, medications (Tyl), manual massage, repositioning and rest. Oswestry axial pain score at 30. PMH: OA, Hyperlipidemia, HTN, Hypothyroid Disorder PSH: Colonoscopy (2023), [facility], Hernia Repair SH: Never smoker, Rare ETOH use, No illicit drug use FH: Non contributory All: See list Meds: See list REVIEW OF ORGAN SYSTEMS: CONSTITUTIONAL: No fevers or chills. No recent weight loss. NEUROLOGICAL: + numbness and tingling along the distal extremities. No seizure disorders or headaches. MUSCULOSKELETAL: + pain PSYCHIATRIC: Denies current depression or suicidal thoughts. Physical Examinations : Constitutional : Cooperative , not in acute distress . Neurologic : Cranial nerve II to XII intact. No focal neurological deficits. Psychiatric : alert & oriented x 3. Matching mood & appropriate affect. Judgment & insight intact. Musculoskeletal : Cervical Spine Motor strength in the deltoid and biceps: Normal right side. Normal Left side Motor strength biceps and the wrist extensors: Normal right side . Normal left side Motor strength in the triceps muscle: Normal right side. Normal left side Deep tendon reflexes: Normal at the biceps. Normal at Brachioradialis. Normal at triceps Vertebral body tenderness to deep palpation over Cervical facet loading test: positive bilaterally Spurling test: positive bilaterally Neck distraction test: positive bilaterally Ivy sign: positive bilaterally Lumbar spine Motor strength lower extremities ,thigh and legs 5/5 Right side , 5/5 Left side Deep tendon reflexes : Normal Knee Jerk. Normal Ankle Jerk Vertebral body tenderness over Senior Test positive Lumbar facet Loading Test: positive Right / positive Left Range of motion of the lumbar spine Flexion 30 degrees, extension 10 degrees Straight Leg Raise test: Left/ Right positive at degree Jaquelin test: positive right / positive left. Severe tenderness over the Sacroiliac joint on the Right / Left sides Gaenslen test: positive bilaterally Seated flexion test: positive bilaterally. Sacral spine : Severe tenderness over the Sacroiliac joint: right side / left side Range of motion: Flexion of the lumbar spine <60 degrees Range of motion: Extension of the lumbar spine <20 degrees Gaenslen's Test positive Jaquelin test: positive right side / left side Thigh Thrust Test Sacral Thrust Test Imaging: None on file Assessment/ Plan : Lumbar DDD Recommendation of lumbar x ray, PT x 6 wks M51.36 . All questions answered. I have spent greater than 30 minutes on patient care today. Dr Gleason was available by phone for the evaluation of this patient. The time was used to review the medical records including relevant urine studies and Prescription history (MAPs), review of the available imaging, evaluation and examination of the patient, coordination of care with the medical staff and if applicable referring physicians, as well as creation of the medical record Home Medications: Ambulatory Orders Levothyroxine Sodium [Synthroid] 50 mcg PO DAILY 01/10/21 Lisinopril-Hctz 20-12.5 mg [Zestoretic 20-12.5] 1 tab PO DAILY 01/10/21 Lovastatin [Mevacor] 20 mg PO DAILY 01/10/21 Aspirin 81 mg PO DAILY 11/14/23 Multivit-Min/FA/Lycopen/Lutein [Centrum Silver Tablet] 1 each PO DAILY 11/14/23 Controlled Substance Measures - Controlled Substance Measures Is patient prescribed a controlled substance at discharge?: No
== END ==
LOC: PNWHC3 07:47
PROVIDERS: ATTEND Specialist
DX: M51.36 Other intervertebral disc degeneration, lumbar region (principal); M47.816 Spondylosis without myelopathy or radiculopathy, lumbar region; Z88.6 Allergy status to analgesic agent
CPT/HCPCS: 72100; G0463; 99211

== ENCOUNTER → 2024-01-09 | Outpatient (CLI) | payer MEDICARE, OTHER ==
[2024-01-09 10:41] VITALS: BP 145/77; PULSE 92; RESP 16; TEMP 97.8
--- NOTE | 2024-01-09 11:47 | P.PROGSL ---
Subjective DATE: 01/09/2024 FOLLOW UP VISIT. Patient with obstructive sleep apnea hypopnea syndrome return to sleep center for follow-up visit. Information from previous visit have been reviewed. Patient is using PAP equipment every night for the whole night, getting PAP supplies in time. The patient does not have significant problems with the mask, PAP unit and humidification. [place] sleepiness scale is 7, which is normal. I checked information from PAP unit. PAP unit pressure 6-15, average 10.5 cm H2O. Usage is 100% for more then 4 hours, average 6.8 hours per night. Leak is 2.8 l/m, which is in acceptable range. Apnea Hypopnea Index is 2.2, which is normal. MEDICATIONS: Please see below During physical exam: GENERAL: A pleasant patient without any distress. VITAL SIGNS: Please see below, weight 272.8 pounds, BMI 43.9. HEENT: PERRLA, EOMI.low position of soft palate, Mallapati 4 . NECK: Supple. No JVD. LUNGS: Clear to percussion and to auscultation. Good air exchange. No wheezing or rhonchi. HEART: S1, S2 regular. ABDOMEN: Soft and nontender.[] EXTREMITIES: No clubbing or cyanosis. BAKER HEAD: Awake, alert, and oriented x3. No focal deficit. Impressions: 1. Obstructive sleep apnea-hypopnea syndrome. Patient demonstrated great compliance with treatment, benefiting from treatment. 2. Obesity, BMI 43.9, patient increased weight on 8 pounds comparing to the previous visit. 3. Hypertension. 4. Hyperlipidemia. 5. Hypothyroidism. 6. Status post surgical treatment for umbilical hernia. 7. Status post bilateral surgical treatment for carpal tunnel syndrome. Plan: 1. Continue using PAP equipment every night for the whole night. 2. To change air filter at least 1-2 times per month. 3. PAP unit should stay lower then position of the head. 4. Advised patient to remove all remaining water from humidifier canister daily and make it dry after each usage. Refill canister with fresh distilled water before each usage. 5. Sleep hygiene with regular time in bed for at least 8 hours. 6. Precautions related to driving. No driving if feel any sleepiness. 7. I will maintain prescription for PAP supplies including mask, tube, filters. 8. Follow up visit in 6 months or earlier if patient has any problems. 9. Watching and losing weight. Thank you very much for allowing me to participate in the management of your patient. Nicolas Hatfield MD, PhD, FAASM. Diplomat of [place] [employer], Sleep Medicine Board by [place] [employer] Platform [facility] [place] Objective - Vital Signs Vital Signs: Vital Signs Temp 97.8 F 01/09/24 10:31 Pulse 92 01/09/24 10:31 Resp 16 01/09/24 10:31 BP 145/77 01/09/24 10:31 Pulse Ox 96 01/09/24 10:31 FiO2 Intake & Output 01/08/24 01/09/24 01/09/24 18:59 06:59 18:59 Weight 123.604 kg Home Medications: Home Medications Medication Instructions Recorded Confirmed Type Levothyroxine Sodium [Synthroid] 50 mcg PO DAILY 01/10/21 01/09/24 History Lisinopril-Hctz 20-12.5 mg 1 tab PO DAILY 01/10/21 01/09/24 History [Zestoretic 20-12.5] Lovastatin [Mevacor] 20 mg PO DAILY 01/10/21 01/09/24 History Aspirin 81 mg PO DAILY 11/14/23 11/28/23 History Multivit-Min/FA/Lycopen/Lutein 1 each PO DAILY 11/14/23 11/28/23 History [Centrum Silver Tablet]
== END ==
LOC: 3 N SLEEP 10:16
PROVIDERS: ATTEND Internal Medicine
DX: G47.33 Obstructive sleep apnea (adult) (pediatric) (principal); E66.9 Obesity, unspecified; I10 Essential (primary) hypertension; E78.5 Hyperlipidemia, unspecified; Z68.41 Body mass index [BMI] 40.0-44.9, adult; Z99.89 Dependence on other enabling machines and devices; Z98.890 Other specified postprocedural states; Z87.39 Personal history of other diseases of the musculoskeletal system and connective tissue; Z88.6 Allergy status to analgesic agent; Z79.899 Other long term (current) drug therapy; Z79.890 Hormone replacement therapy
CPT/HCPCS: 99212

== ENCOUNTER → 2024-01-09 | Outpatient (CLI) | payer MEDICARE, OTHER ==
[2024-01-09 08:47] VITALS: BP 144/78; PULSE 89; RESP 16; TEMP 97.2
--- NOTE | 2024-01-09 13:04 | P.PAINPG ---
PQRS Measure Charge Sheet Comment: HISTORY OF PRESENT ILLNESS: A 73 yr old male presents today w severe and chronic LBP x 1 yr secondary to DDD, spondylosis and facet arthropathy without myelopathy for evaluation of x ray results. Pt states pain level is provoked at 8-9 /10 in intensity, constant, localized in the lower spine, predominantly axial, burning in character w occasional shooting pain towards the BL buttocks, LEs and feet R> L. Pain is provoked by bending, walking, lifting. Pain is alleviated by PT x 4 wks which he is currently in, physician guided exercises weekly since Sep 2023, medication, manual massage, repositioning and rest. Oswestry axial pain score at 30. Interventional procedures include Medications include Tyl REVIEW OF ORGAN SYSTEMS: CONSTITUTIONAL: No fevers or chills. No recent weight loss. NEUROLOGICAL: + numbness and tingling along the distal extremities. No seizure disorders or headaches. MUSCULOSKELETAL: + pain PSYCHIATRIC: Denies current depression or suicidal thoughts. Physical Examinations : Constitutional : Cooperative , not in acute distress . Neurologic : Cranial nerve II to XII intact. No focal neurological deficits. Psychiatric : alert & oriented x 3. Matching mood & appropriate affect. Judgment & insight intact. Musculoskeletal : Cervical Spine Motor strength in the deltoid and biceps: Normal right side. Normal Left side Motor strength biceps and the wrist extensors: Normal right side . Normal left side Motor strength in the triceps muscle: Normal right side. Normal left side Deep tendon reflexes: Normal at the biceps. Normal at Brachioradialis. Normal at triceps Vertebral body tenderness to deep palpation over Cervical facet loading test: positive bilaterally Spurling test: positive bilaterally Neck distraction test: positive bilaterally Ivy sign: positive bilaterally Lumbar spine Motor strength lower extremities ,thigh and legs 5/5 Right side , 5/5 Left side Deep tendon reflexes : Normal Knee Jerk. Normal Ankle Jerk Vertebral body tenderness over L4 Senior Test positive BL L3-L4 Lumbar facet Loading Test: positive Right / positive Left Range of motion of the lumbar spine Flexion 30 degrees, extension 10 degrees Straight Leg Raise test: Left/ Right positive at degree Jaquelin test: positive right / positive left. Severe tenderness over the Sacroiliac joint on the Right / Left sides Gaenslen test: positive bilaterally Seated flexion test: positive bilaterally. Sacral spine : Severe tenderness over the Sacroiliac joint: right side / left side Range of motion: Flexion of the lumbar spine <60 degrees Range of motion: Extension of the lumbar spine <20 degrees Gaenslen's Test positive Jaquelin test: positive right side / left side Thigh Thrust Test Sacral Thrust Test Imaging: Lumbar x ray from 11/28/23 reviewed Assessment/ Plan : Lumbar DDD Recommendation of MRI lumbar spine, PT x 6 wks M51.36 . All questions answered. I have spent greater than 30 minutes on patient care today. Dr Gleason was available by phone for the evaluation of this patient. The time was used to review the medical records including relevant urine studies and Prescription history (MAPs), review of the available imaging, evaluation and examination of the patient, coordination of care with the medical staff and if applicable referring physicians, as well as creation of the medical record PQRS Narrative: Hx Alcohol Use (MH) No Home Medications: Ambulatory Orders Levothyroxine Sodium [Synthroid] 50 mcg PO DAILY 01/10/21 Lisinopril-Hctz 20-12.5 mg [Zestoretic 20-12.5] 1 tab PO DAILY 01/10/21 Lovastatin [Mevacor] 20 mg PO DAILY 01/10/21 Aspirin 81 mg PO DAILY 11/14/23 Multivit-Min/FA/Lycopen/Lutein [Centrum Silver Tablet] 1 each PO DAILY 11/14/23 Controlled Substance Measures - Controlled Substance Measures Is patient prescribed a controlled substance at discharge?: No
== END ==
LOC: PNWHC3 07:38
PROVIDERS: ATTEND Specialist
DX: M51.36 Other intervertebral disc degeneration, lumbar region (principal); M47.816 Spondylosis without myelopathy or radiculopathy, lumbar region; Z88.6 Allergy status to analgesic agent
CPT/HCPCS: 99211

== ENCOUNTER → 2024-01-20 | Outpatient (CLI) | payer MEDICARE, OTHER ==
--- NOTE | 2024-01-20 18:14 | MR ---
EXAMINATION TYPE: MR lumbar spine wo con DATE OF EXAM: 01/20/2024 3:02 PM CLINICAL INDICATION:Male, 73 years old with history of M51.36 DISC DEGENERATION, LUMBAR REGION; PHH, Lumber Pain x20 Years and it travels down both buttocks and thighs COMPARISON: 11/28/2023 TECHNIQUE: Multi planar, multi sequence imaging was performed utilizing: T1-weighted, T2-weighted, a nd turbo inversion recovery imaging of the lumbar spine. IV Contrast: cc . (None if empty) FINDINGS: Alignment: The lumbar vertebral bodies have preserved heights with grade 2 anterolisthesis of L4 on L 5. Cord: The conus medullaris and the distal spinal cord appear unremarkable with regards to their signa l intensity and morphology. Bones/Discs: High T1/high T2 T1 vertebral body hemangioma and/or focal fat measuring up to 15 mm whic h suppresses on fat suppression STIR sequence. Severe degeneration changes most pronounced at the adj oining endplates of L1 and L2 with adjacent reactive bony edema and Modic endplate change. Multilevel disc space narrowing, osteophyte formation and facet joint arthropathy. T12-L1: No evidence of significant spinal canal stenosis. Facet joint arthropathy mild bilateral neur al foraminal stenosis. L1-L2: Central disc extrusion with severe spinal canal stenosis with 8 mm inferior migration of disc material in moderate to severe bilateral neural foraminal stenosis. L2-L3: Disc bulge and facet joint arthropathy result in moderate spinal canal and mild bilateral neur al foraminal stenosis. L3-L4: Disc bulge and facet joint arthropathy result in moderate spinal canal and moderate to severe left and severe right neural foraminal stenosis. L4-L5: Disc uncovering from grade 2 anterolisthesis and facet joint arthropathy with severe spinal ca nal stenosis and severe bilateral neural foraminal stenosis. L5-S1: The disc has a rounded posterior morphology without significant spinal canal stenosis. Facet j oint arthropathy with mild bilateral neural foraminal stenosis. No significant spinal canal or neural foraminal stenosis in the remainder of the visualized levels. Other findings: None. IMPRESSION: 1. L4-L5 Grade 2 anterolisthesis with severe spinal canal and severe bilateral neural foraminal sten osis. 2. L1-L2 Central disc extrusion with severe spinal canal stenosis with 8 mm inferior migration of di sc material in moderate to severe bilateral neural foraminal stenosis. 3. Moderate to severe degeneration changes of the spine. Neural foraminal stenosis worse at L3-L4 wi th severe right and moderate severe left.
== END | disposition home or self-care (01) ==
LOC: RADMRIMAIN 13:47
PROVIDERS: ATTEND Specialist
DX: M51.26 Other intervertebral disc displacement, lumbar region (principal); M43.16 Spondylolisthesis, lumbar region; M99.73 Connective tissue and disc stenosis of intervertebral foramina of lumbar region
CPT/HCPCS: 72148

== ENCOUNTER → 2024-02-06 | Outpatient (CLI) | payer MEDICARE, OTHER ==
[2024-02-06 08:39] VITALS: BP 166/80; PULSE 70; RESP 16
--- NOTE | 2024-02-06 14:46 | P.PAINPG ---
PQRS Measure Charge Sheet Comment: HISTORY OF PRESENT ILLNESS: A 73 yr old male w at side presents today w severe and chronic LBP x 1 yr secondary to DDD, spondylosis and facet arthropathy without myelopathy for evaluation of MRI results. Pt states pain level is provoked at 8 /10 in intensity, constant, localized in the lower spine, predominantly axial, burning in character w occasional shooting pain towards the BL buttocks, LEs and feet R> L. Pain is provoked by bending, walking, lifting. Pain is alleviated by PT x 4 wks in December 2023, physician guided exercises weekly since Sep 2023, medication, manual massage, repositioning and rest. Oswestry axial pain score at 30. Interventional procedures include Medications include Tyl REVIEW OF ORGAN SYSTEMS: CONSTITUTIONAL: No fevers or chills. No recent weight loss. NEUROLOGICAL: + numbness and tingling along the distal extremities. No seizure disorders or headaches. MUSCULOSKELETAL: + pain PSYCHIATRIC: Denies current depression or suicidal thoughts. Physical Examinations : Constitutional : Cooperative , not in acute distress . Neurologic : Cranial nerve II to XII intact. No focal neurological deficits. Psychiatric : alert & oriented x 3. Matching mood & appropriate affect. Judgment & insight intact. Musculoskeletal : Cervical Spine Motor strength in the deltoid and biceps: Normal right side. Normal Left side Motor strength biceps and the wrist extensors: Normal right side . Normal left side Motor strength in the triceps muscle: Normal right side. Normal left side Deep tendon reflexes: Normal at the biceps. Normal at Brachioradialis. Normal at triceps Vertebral body tenderness to deep palpation over Cervical facet loading test: positive bilaterally Spurling test: positive bilaterally Neck distraction test: positive bilaterally Ivy sign: positive bilaterally Lumbar spine Motor strength lower extremities ,thigh and legs 5/5 Right side , 5/5 Left side Deep tendon reflexes : Normal Knee Jerk. Normal Ankle Jerk Vertebral body tenderness over L4 Senior Test positive BL L4-L5 Lumbar facet Loading Test: positive Right / positive Left Range of motion of the lumbar spine Flexion 30 degrees, extension 10 degrees Straight Leg Raise test: Left/ Right positive at degree Jaquelin test: positive right / positive left. Severe tenderness over the Sacroiliac joint on the Right / Left sides Gaenslen test: positive bilaterally Seated flexion test: positive bilaterally. Sacral spine : Severe tenderness over the Sacroiliac joint: right side / left side Range of motion: Flexion of the lumbar spine <60 degrees Range of motion: Extension of the lumbar spine <20 degrees Gaenslen's Test positive Jaquelin test: positive right side / left side Thigh Thrust Test Sacral Thrust Test Imaging: Lumbar x ray from 11/28/23 reviewed MRI non contrast of the lumbar spine from 01/20/24 reviewed Assessment/ Plan : L4-L5 spinal stenosis, Lumbar DDD Recommendation of JUNE L4-L5 #1. May need a series of injections for optimal pain relief. Risks, benefits of procedure discussed and pt verbalized understanding. Protocol for discontinuation/ continuation of medications chad procedure discussed . All questions answered. I have spent greater than 30 minutes on patient care today. Dr Gleason was available by phone for the evaluation of this patient. The time was used to r eview the medical records including relevant urine studies and Prescription history (MAPs), review of the available imaging, evaluation and examination of the patient, coordination of care with the medical staff and if applicable referring physicians, as well as creation of the medical record PQRS Narrative: Hx Alcohol Use (MH) No Home Medications: Ambulatory Orders Levothyroxine Sodium [Synthroid] 50 mcg PO DAILY 01/10/21 Lisinopril-Hctz 20-12.5 mg [Zestoretic 20-12.5] 1 tab PO DAILY 01/10/21 Lovastatin [Mevacor] 20 mg PO DAILY 01/10/21 Aspirin 81 mg PO DAILY 11/14/23 Multivit-Min/FA/Lycopen/Lutein [Centrum Silver Tablet] 1 each PO DAILY 11/14/23 diazePAM [Valium] 5 mg PO DAILY PRN 1 Days #2 tab 02/06/24 Controlled Substance Measures - Controlled Substance Measures Is patient prescribed a controlled substance at discharge?: Yes When asked, does pt state using other controlled substances?: Yes If prescribed controlled substance>3 days was MAPS reviewed?: Prescribed <3 Days
== END ==
LOC: PNWHC3 07:38
PROVIDERS: ATTEND Specialist
DX: M51.36 Other intervertebral disc degeneration, lumbar region (principal); M48.061 Spinal stenosis, lumbar region without neurogenic claudication; Z88.6 Allergy status to analgesic agent
CPT/HCPCS: 99211

== ENCOUNTER 2024-02-26 12:20 | Day surgery (SDC) | payer MEDICARE, OTHER ==
[~2024-02-26 12:20] MED LIST: LACTATED RINGERS 1,000 ML IV SCH
[2024-02-26 13:11] VITALS: TEMP 97
[2024-02-26] MEDS ORDERED: methylPREDNISolone ACETATE 80 MG/ML 1 ML VIAL ONE (13:45)
[2024-02-26] MEDS ORDERED: IOPAMIDOL M200 10 ML VIAL ONE (13:45)
--- NOTE | 2024-02-26 13:51 | P.PCN ---
Date of Procedure: 02/26/24 Procedure(s) Performed: PREOPERATIVE DIAGNOSIS: 1- Lumbar Degenerative Disc Diseases 2-Lumbar spondylosis with Facet arthropathy without myelopathy. 3-lumbar spinal stenosis POSTOPERATIVE DIAGNOSIS: 1-lumbar degenerative disc disease. 2-lumbar spondylosis with facet arthropathy without myelopathy. 3-lumbar spinal stenosis. PROCEDURE 1. Lumbar epidural steroid injection under fluoroscopic guidance at the L4-5 level. (Fluoroscopy imaging was available in radiology department) 2. Lumbar epidurogram. ANESTHESIA: Lidocaine 1% 3 and then only. EBL: Minimal PROCEDURE INDICATION: The patient with low back pain and radiculitis symptoms unresponsive to conservative treatment. Fluoroscopy was used to optimize visualization of the needle placement and to maximize safety. PROCEDURE DESCRIPTION / TECHNIQUE: The patient was seen and identified in the preoperative area. Risks, benefits, complications including but not limited to infections ,bleeding ,allergic reaction to the medications ,nerve damage and not complete pain releife , and alternatives were discussed with the patient. The patient agreed to proceed with the procedure and signed the consent, and vital signs were stable. Patient was taken to the OR and time out was completed. The patient was placed in the prone position on procedure table and a pillow was placed under the abdomen to reduce lumbar lordosis. The lumbosacral area was prepped and draped in the usual sterile fashion.ere closely monitored during the procedure. Vital signs was monitered during the entire procedure. Using anterior-posterior fluoroscopy, the L4-5 interlaminar space was identified and the skin over this site was marked and then infiltrated with 1% lidocaine subcutaneously. Subsequently, a 20-gauge Tuohy epidural needle was inserted and advanced toward the epidural space using the ``Loss of resistance technique and guided by AP and lateral fluoroscopy. The correct needle position in the epidural space was verified with the injection of 2 mL of the water soluble contrast dye Isovue 200 contrast and observing an excellent epidurogram with the epidural spread of the dye, after negative aspiration for blood and CSF and in the absence of paresthesias. Again after negative aspiration, a 6 ml mixture containing 60 mg of Depo-medrol ( Preservetive Free ), and 2 ml of preservative free Normal Saline, and 2 ml of preservative free lidocaine 1% solution was injected and a washout of epidurogram was seen. Needle was withdrawn intact, sk in was cleansed, and bandages were applied. COMPLICATIONS: None DISPOSITION / PLANS: The patient was placed in a supine position and transferred to the recovery area in a stable condition for observation. There was no evidence of lower extremity motor or sensory deficit after the procedure. Patient was discharged from the recovery room after meeting discharge criteria. Home discharge instructions were given to the patient by the staff. The patient was reexamined prior to discharge. The patient will schedule a follow up in the clinic in 2-4 weeks.
--- NOTE | 2024-02-26 14:07 | FL ---
Fluoroscopy INDICATION: Pain FINDINGS: Fluoroscopy time: 2.4 seconds. Total dose area product (DAP) in uGy*m?, mGy*cm? (or similar): 0.39108 Images obtained: 2. IMPRESSION: 1. Documentation of fluoroscopy.
[2024-02-26 14:17] VITALS: BP 154/76; PULSE 85; RESP 18
== END 2024-02-26 14:26 | disposition home or self-care (01) ==
LOC: ORPAIN 12:20
PROVIDERS: ATTEND Specialist
DX: M51.16 Intervertebral disc disorders with radiculopathy, lumbar region (principal); M47.26 Other spondylosis with radiculopathy, lumbar region; M48.061 Spinal stenosis, lumbar region without neurogenic claudication; Z88.6 Allergy status to analgesic agent; Z79.82 Long term (current) use of aspirin; Z79.890 Hormone replacement therapy; Z79.899 Other long term (current) drug therapy
CPT/HCPCS: 62323; Q9966; J1010

== ENCOUNTER → 2024-03-13 | Outpatient (CLI) | payer MEDICARE, OTHER ==
[2024-03-13 07:57] VITALS: BP 136/82; PULSE 72; RESP 16; TEMP 97.8
--- NOTE | 2024-03-13 14:50 | P.PAINPG ---
PQRS Measure Charge Sheet Comment: HISTORY OF PRESENT ILLNESS: A 73 yr old male w at side presents today w severe and chronic LBP x 1 yr secondary to DDD, spondylosis and facet arthropathy without myelopathy for evaluation s/p JUNE L4-L5 #1. Pt states he experienced 90 % pain relief x 1 wk s/p procedure. Pt states pain level is provoked at 9 /10 in intensity, constant, localized in the lower spine, predominantly axial, burning in character w occasional shooting pain towards the LLE. Pain is provoked by standing for periods > 15 min. Pain is alleviated by PT x 4 wks in December 2023, physician guided exercises weekly since Sep 2023, medication, manual massage, repositioning and rest. Oswestry axial pain score at 29. Interventional procedures include JUNE L4-L5 x1 Medications include Tyl REVIEW OF ORGAN SYSTEMS: CONSTITUTIONAL: No fevers or chills. No recent weight loss. NEUROLOGICAL: + numbness and tingling along the distal extremities. No seizure disorders or headaches. MUSCULOSKELETAL: + pain PSYCHIATRIC: Denies current depression or suicidal thoughts. Physical Examinations : Constitutional : Cooperative , not in acute distress . Neurologic : Cranial nerve II to XII intact. No focal neurological deficits. Psychiatric : alert & oriented x 3. Matching mood & appropriate affect. Judgment & insight intact. Musculoskeletal : Cervical Spine Motor strength in the deltoid and biceps: Normal right side. Normal Left side Motor strength biceps and the wrist extensors: Normal right side . Normal left side Motor strength in the triceps muscle: Normal right side. Normal left side Deep tendon reflexes: Normal at the biceps. Normal at Brachioradialis. Normal at triceps Vertebral body tenderness to deep palpation over Cervical facet loading test: positive bilaterally Spurling test: positive bilaterally Neck distraction test: positive bilaterally Ivy sign: positive bilaterally Lumbar spine Motor strength lower extremities ,thigh and legs 5/5 Right side , 5/5 Left side Deep tendon reflexes : Normal Knee Jerk. Normal Ankle Jerk Vertebral body tenderness over L4 Senior Test positive BL L4-L5 Lumbar facet Loading Test: positive Right / positive Left L4-L5, L5-S1 Range of motion of the lumbar spine Flexion 30 degrees, extension 10 degrees Straight Leg Raise test: Left/ Right positive at degree Jaquelin test: positive right / positive left. Severe tenderness over the Sacroiliac joint on the Right / Left sides Gaenslen test: positive bilaterally Seated flexion test: positive bilaterally. Sacral spine : Severe tenderness over the Sacroiliac joint: right side / left side Range of motion: Flexion of the lumbar spine <60 degrees Range of motion: Extension of the lumbar spine <20 degrees Gaenslen's Test positive Jaquelin test: positive right side / left side Thigh Thrust Test Sacral Thrust Test Imaging: Lumbar x ray from 11/28/23 reviewed MRI non contrast of the lumbar spine from 01/20/24 reviewed Assessment/ Plan : L4-L5 spinal stenosis, Lumbar DDD Recommendation of medication management and follow up w orthopedic surgeon. [place] 5/325mg #60, Flexeril 10mg #30 w 1 RF. Use, side effects, adverse reactions, safe storage discussed. Opiate/ narcotic agreement signed 03/13/24. All questions answered. I have spent greater than 30 minutes on patient care today. Dr Gleason was available by phone for the evaluation of this patient. The time was used to review the medical records including relevant urine studies and Prescription history (MAPs), review of the available imaging, evaluation and examination of the patient, coordination of care with the medical staff and if applicable referring physicians, as well as creation of the medical record - Pain Location Lower Back Non-Pharmacological Interventions: Distraction, Relaxation Technique Pharmacological Interventions: Block, Epidural, PRN Medication PQRS Narrative: Hx Alcohol Use (MH) No Home Medications: Ambulatory Orders Levothyroxine Sodium [Synthroid] 50 mcg PO DAILY 01/10/21 Lisinopril-Hctz 20-12.5 mg [Zestoretic 20-12.5] 1 tab PO DAILY 01/10/21 Lovastatin [Mevacor] 20 mg PO DAILY 01/10/21 Aspirin 81 mg PO DAILY 11/14/23 Multivit-Min/FA/Lycopen/Lutein [Centrum Silver Tablet] 1 each PO DAILY 11/14/23 diazePAM [Valium] 5 mg PO DAILY PRN 1 Days #2 tab 02/06/24 Cyclobenzaprine [Flexeril] 10 mg PO HS PRN 30 Days #30 tab 03/13/24 HYDROcodone/APAP 5-325MG [[place] 5-325] 1 tab PO BID PRN 30 Days #60 tab 03/13/24 HYDROcodone/APAP 5-325MG [[place] 5-325] 1 tab PO BID PRN 30 Days #60 tab 03/13/24 Controlled Substance Measures - Controlled Substance Measures Is patient prescribed a controlled substance at discharge?: Yes When asked, does pt state using other controlled substances?: No If prescribed controlled substance>3 days was MAPS reviewed?: Yes If Rx opioid, was Start Talking consent form obtained?: Yes Was information provided regarding opioid addiction?: Yes
== END ==
LOC: PNWHC3 07:34
PROVIDERS: ATTEND Specialist
DX: M51.37 Other intervertebral disc degeneration, lumbosacral region (principal); M47.817 Spondylosis without myelopathy or radiculopathy, lumbosacral region; M48.061 Spinal stenosis, lumbar region without neurogenic claudication; Z88.6 Allergy status to analgesic agent
CPT/HCPCS: 99211

== ENCOUNTER → 2024-05-08 | Outpatient (CLI) | payer MEDICARE, OTHER ==
[2024-05-08 08:21] VITALS: BP 123/82; PULSE 75; RESP 17
--- NOTE | 2024-05-08 13:24 | P.PAINPG ---
Objective - Vital Signs Vital signs: Intake & Output 05/07/24 05/08/24 05/08/24 18:59 06:59 18:59 Weight 270 kg PQRS Measure Charge Sheet Comment: HISTORY OF PRESENT ILLNESS: A 74 yr old male w at side presents today w severe and chronic LBP x 1 yr secondary to DDD, spondylosis and facet arthropathy without myelopathy for medication refills. Pt states pain level is provoked at 8 /10 in intensity, constant, localized in the lower spine, predominantly axial, burning in character w occasional shooting pain towards the LLE. Pain is provoked by standing for periods > 15 min. Pain is alleviated by PT x 4 wks in December 2023, physician guided exercises weekly since Sep 2023, medication, manual massage, repositioning and rest. Interventional procedures include JUNE L4-L5 x1 Medications include Tyl, [place] 5/325mg #60, Flexeril discontinued REVIEW OF ORGAN SYSTEMS: CONSTITUTIONAL: No fevers or chills. No recent weight loss. NEUROLOGICAL: + numbness and tingling along the distal extremities. No seizure disorders or headaches. MUSCULOSKELETAL: + pain PSYCHIATRIC: Denies current depression or suicidal thoughts. Physical Examinations : Constitutional : Cooperative , not in acute distress . Neurologic : Cranial nerve II to XII intact. No focal neurological deficits. Psychiatric : alert & oriented x 3. Matching mood & appropriate affect. Judgment & insight intact. Musculoskeletal : Cervical Spine Motor strength in the deltoid and biceps: Normal right side. Normal Left side Motor strength biceps and the wrist extensors: Normal right side . Normal left side Motor strength in the triceps muscle: Normal right side. Normal left side Deep tendon reflexes: Normal at the biceps. Normal at Brachioradialis. Normal at triceps Vertebral body tenderness to deep palpation over Cervical facet loading test: positive bilaterally Spurling test: positive bilaterally Neck distraction test: positive bilaterally Ivy sign: positive bilaterally Lumbar spine Motor strength lower extremities ,thigh and legs 5/5 Right side , 5/5 Left side Deep tendon reflexes : Normal Knee Jerk. Normal Ankle Jerk Vertebral body tenderness over L4 Senior Test positive BL L4-L5 Lumbar facet Loading Test: positive Right / positive Left L4-L5, L5-S1 Range of motion of the lumbar spine Flexion 30 degrees, extension 10 degrees Straight Leg Raise test: Left/ Right positive at degree Jaquelin test: positive right / positive left. Severe tenderness over the Sacroiliac joint on the Right / Left sides Gaenslen test: positive bilaterally Seated flexion test: positive bilaterally. Sacral spine : Severe tenderness over the Sacroiliac joint: right side / left side Range of motion: Flexion of the lumbar spine <60 degrees Range of motion: Extension of the lumbar spine <20 degrees Gaenslen's Test positive Jaquelin test: positive right side / left side Thigh Thrust Test Sacral Thrust Test Imaging: Lumbar x ray from 11/28/23 reviewed MRI non contrast of the lumbar spine from 01/20/24 reviewed Assessment/ Plan : L4-L5 spinal stenosis, Lumbar radiculopathy Recommendation of medication management and follow up w orthopedic surgeon. Did not package pick up 2nd [place] Rx. Changed pt's pharmacy. [place] 5/325mg #60, Zanaflex 4mg #60 w 1 RF. Use, side effects, adverse reactions, safe storage discussed. Opiate/ narcotic agreement signed 03/13/24. All questions answered. I have spent greater than 30 minutes on patient care today. Dr Gleason was available by phone for the evaluation of this patient. The time was used to review the medical records including relevant urine studies and Prescription history (MAPs), review of the available imaging, evaluation and examination of the patient, coordination of care with the medical staff and if applicable referring physicians, as well as creation of the medical record - Pain Location Lower Back Non-Pharmacological Interventions: Sitting Pharmacological Interventions: Epidural, PRN Medication PQRS Narrative: Hx Alcohol Use (MH) No Home Medications: Ambulatory Orders Levothyroxine Sodium [Synthroid] 50 mcg PO DAILY 01/10/21 Lisinopril-Hctz 20-12.5 mg [Zestoretic 20-12.5] 1 tab PO DAILY 01/10/21 Lovastatin [Mevacor] 20 mg PO DAILY 01/10/21 Aspirin 81 mg PO DAILY 11/14/23 Multivit-Min/FA/Lycopen/Lutein [Centrum Silver Tablet] 1 each PO DAILY 11/14/23 diazePAM [Valium] 5 mg PO DAILY PRN 1 Days #2 tab 02/06/24 HYDROcodone/APAP 5-325MG [[place] 5-325] 1 tab PO BID PRN 30 Days #60 tab 05/08/24 HYDROcodone/APAP 5-325MG [[place] 5-325] 1 tab PO BID PRN 30 Days #60 tab 05/08/24 tiZANidine HCL [Zanaflex] 4 mg PO BID PRN 30 Days #60 capsule 05/08/24 Controlled Substance Measures - Controlled Substance Measures Is patient prescribed a controlled substance at discharge?: Yes When asked, does pt state using other controlled substances?: No If prescribed controlled substance>3 days was MAPS reviewed?: Yes
== END ==
LOC: PNWHC3 07:48
PROVIDERS: ATTEND Specialist
DX: M54.16 Radiculopathy, lumbar region
CPT/HCPCS: 99211

== ENCOUNTER → 2024-05-27 | Outpatient (CLI) | payer MEDICARE, OTHER ==
[2024-05-27 15:14] LABS: Basophils # (A) 0.04 X 10*3/uL (0.00-0.10); Basophils % (A) 0.8 %; Eosinophils % (A) 1.9 %; HCT 43.2 % (39.6-50.0); HGB 14.7 g/dL (13.0-17.0); Lymphocytes # (A) 1.68 X 10*3/uL (0.90-5.00); Lymphocytes % (A) 32.3 %; MCV 94.1 FL (80.0-97.0); Mean Platelet Volume 10.8 FL (9.5-12.2); Monocytes # (A) 0.61 X 10*3/uL (0.20-1.00); Monocytes % (A) 11.7 %; NRBC Per 100 WBC 0 X 10*3/uL (0.00-0.01); Neutrophils # (A) 2.76 X 10*3/uL (1.80-7.70); Neutrophils % (A) 53.1 %; Platelet Count 206 X 10*3/uL (140-440); RBC 4.59 X 10*6/uL (4.40-5.60); RDW 12.5 % (11.5-14.5)
[2024-05-27 15:34] LABS: ALT 49 U/L (10-49); AST 36 U/L (14-35); Albumin 4.2 g/dL (3.8-4.9); Albumin/Globulin Ratio 1.62 Ratio (1.60-3.17); Alkaline Phosphatase 55 U/L (41-126); BUN/Creat Ratio 16.44 Ratio (12.00-20.00); Blood Urea Nitrogen 14.8 mg/dL (9.0-27.0); Calcium 8.9 mg/dL (8.7-10.3); Carbon Dioxide 27.9 mmol/L (21.6-31.8); Chloride 101 mmol/L (96-109); Chol/HDL Ratio 3.58 Ratio; Globulin 2.6 g/dL (1.6-3.3); Glucose 102 mg/dL (70-110); LDL Cholesterol,Calculated 86.7 mg/dL (0.0-131.0); Potassium 4.4 mmol/L (3.5-5.5); Sodium 137 mmol/L (135-145); T4, Free (Free Thyroxine) 0.97 ng/dL (0.80-1.80); Total Bilirubin 0.7 mg/dL (0.3-1.2); Total Protein 6.8 g/dL (6.2-8.2)
== END | disposition home or self-care (01) ==
LOC: LABWHC1 09:18
PROVIDERS: ATTEND Internal Medicine
DX: E78.5 Hyperlipidemia, unspecified
CPT/HCPCS: 36415; 80053; 80061; 83036; 84439; 84443; 85025

== ENCOUNTER → 2024-06-16 | Outpatient (CLI) | payer MEDICARE, OTHER ==
--- NOTE | 2024-06-16 10:11 | CT ---
EXAMINATION TYPE: CT thor lumbar spine wo con DATE OF EXAM: 06/16/2024 8:58 AM COMPARISON: 03/27/2014 CLINICAL INDICATION: Male, 74 years old with history of M54.6 back cheryl; BACK PAIN TECHNIQUE: Axial images of the thoracic and lumbar spine were obtained without contrast. Coronal and sagittal reformats were performed. CT Contrast: Contrast used: mL of , none. Oral contrast used: none. CT DLP: 1901 mGycm, Automated exposure control for dose reduction was used. FINDINGS: There are 5 lumbar type vertebral bodies, grade 1 anterolisthesis of L4 and L5. Straightening of the thoracic spinal curvature. No evidence of fracture is identified. Multilevel moderate to severe degeneration changes with osteop hyte formation disc space narrowing and facet joint arthropathy. Spinal canal stenosis worse at L4-L5 secondary to grade 1 anterolisthesis with severe spinal self rocio nosis. There is also moderate to severe right and moderate left neural foraminal stenosis at this lev el. Moderate spinal canal stenosis at L3-L4 secondary to osteophytes and degeneration. L2-L3 mild to mode rate spinal canal stenosis. Moderate spinal canal stenosis at L1-L2 secondary to osteophyte formation . Scattered osteophytes throughout the thoracic spine with at least mild spinal canal stenosis. Some os teophytes do appear to impress upon the spinal cord laterally. No evidence for significant spinal can al stenosis throughout the thoracic spine. Mild atherosclerosis of the arterial vasculature. IMPRESSION: 1. No evidence of fracture of the lumbar spine. 2. Grade 1 anterolisthesis of L4 and L5 without spondylolysis this results in severe spinal canal st enosis and and moderate to severe right neural foraminal stenosis. 3. Moderate to severe degeneration changes throughout the spine with large anterior osteophytes pres ent. 4. Osteophytes throughout the thoracic spine which closely approximates and likely compressed upon t he spinal cord anteriorly. [facility], , 06/16/2024 10:09 AM
== END | disposition home or self-care (01) ==
LOC: RADCTMAIN 08:35
PROVIDERS: ATTEND Orthopaedic Surgery
CPT/HCPCS: 72128; 72131

== ENCOUNTER → 2024-07-03 | Outpatient (CLI) | payer MEDICARE, OTHER ==
[2024-07-03 07:53] VITALS: BP 122/78; PULSE 85; RESP 16
--- NOTE | 2024-07-03 14:28 | P.PAINPG ---
Objective - Vital Signs Vital signs: Vital Signs Temp Pulse 85 07/03/24 07:50 Resp 16 07/03/24 07:50 BP 122/78 07/03/24 07:50 Pulse Ox 96 07/03/24 07:50 FiO2 Intake & Output 07/02/24 07/03/24 07/03/24 18:59 06:59 18:59 Weight 118.841 kg PQRS Measure Charge Sheet Mode of Arrival: Ambulatory Comment: HISTORY OF PRESENT ILLNESS: A 74 yr old male w at side presents today w severe and chronic LBP x 1 yr secondary to radiculopathy, spondylosis and facet arthropathy without myelopathy for medication refills. Pt states pain level is provoked at 8 /10 in intensity, constant, localized in the lower spine, predominantly axial, burning in character w occasional shooting pain towards the BLEs. Pain is provoked by standing for periods > 15 min. Pain is alleviated by PT x 4 wks in December 2023, physician guided exercises weekly since Sep 2023, medication, manual massage, repositioning and rest. Interventional procedures include JUNE L4-L5 x1 Medications include Tyl, [place] 5/325mg #60 , Zanaflex 4mg #60 REVIEW OF ORGAN SYSTEMS: CONSTITUTIONAL: No fevers or chills. No recent weight loss. NEUROLOGICAL: + numbness and tingling along the distal extremities. No seizure disorders or headaches. MUSCULOSKELETAL: + pain PSYCHIATRIC: Denies current depression or suicidal thoughts. Physical Examinations : Constitutional : Cooperative , not in acute distress . Neurologic : Cranial nerve II to XII intact. No focal neurological deficits. Psychiatric : alert & oriented x 3. Matching mood & appropriate affect. Judgment & insight intact. Musculoskeletal : Cervical Spine Motor strength in the deltoid and biceps: Normal right side. Normal Left side Motor strength biceps and the wrist extensors: Normal right side . Normal left side Motor strength in the triceps muscle: Normal right side. Normal left side Deep tendon reflexes: Normal at the biceps. Normal at Brachioradialis. Normal at triceps Vertebral body tenderness to deep palpation over Cervical facet loading test: positive bilaterally Spurling test: positive bilaterally Neck distraction test: positive bilaterally Ivy sign: positive bilaterally Lumbar spine Motor strength lower extremities ,thigh and legs 5/5 Right side , 5/5 Left side Deep tendon reflexes : Normal Knee Jerk. Normal Ankle Jerk Vertebral body tenderness over L4 Senior Test positive BL L4-L5 Lumbar facet Loading Test: positive Right / positive Left L4-L5, L5-S1 Range of motion of the lumbar spine Flexion 30 degrees, extension 10 degrees Straight Leg Raise test: Left/ Right positive at degree Jaquelin test: positive right / positive left. Severe tenderness over the Sacroiliac joint on the Right / Left sides Gaenslen test: positive bilaterally Seated flexion test: positive bilaterally. Sacral spine : Severe tenderness over the Sacroiliac joint: right side / left side Range of motion: Flexion of the lumbar spine <60 degrees Range of motion: Extension of the lumbar spine <20 degrees Gaenslen's Test positive Jaquelin test: positive right side / left side Thigh Thrust Test Sacral Thrust Test Imaging: Lumbar x ray from 11/28/23 reviewed MRI non contrast of the lumbar spine from 01/20/24 reviewed Assessment/ Plan : L4-L5 spinal stenosis, Lumbar radiculopathy Recommendation of medication management and follow up w orthopedic surgeon. 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 Changed pt's pharmacy. [place] 5/325mg #60, Zanaflex 4mg #60 w 1 RF. Use, side effects, adverse reactions, safe storage discussed. Opiate/ narcotic agreement signed 03/13/24. All questions answered. I have spent greater than 30 minutes on patient care today. Dr Gleason was available by phone for the evaluation of this patient. The time was used to review the medical records including relevant urine studies and Prescription history (MAPs), review of the available imaging, evaluation and examination of the patient, coordination of care with the medical staff and if applicable referring physicians, as well as creation of the medical record - Pain Location Lower Back Non-Pharmacological Interventions: Heat, Ice, Physical Therapy Pharmacological Interventions: Epidural, Scheduled Medication PQRS Narrative: Blood Pressure 122/78 Pain Intensity [Lower Back] 9 Scale Used Numeric (1 - 10) Hx Alcohol Use (MH) No Home Medications: Ambulatory Orders Levothyroxine Sodium [Synthroid] 50 mcg PO DAILY 01/10/21 Lisinopril-Hctz 20-12.5 mg [Zestoretic 20-12.5] 1 tab PO DAILY 01/10/21 Lovastatin [Mevacor] 20 mg PO DAILY 01/10/21 Aspirin 81 mg PO DAILY 11/14/23 Multivit-Min/FA/Lycopen/Lutein [Centrum Silver Tablet] 1 each PO DAILY 11/14/23 diazePAM [Valium] 5 mg PO DAILY PRN 1 Days #2 tab 02/06/24 HYDROcodone/APAP 5-325MG [[place] 5-325] 1 tab PO BID PRN 30 Days #60 tab 07/03/24 HYDROcodone/APAP 5-325MG [[place] 5-325] 1 tab PO BID PRN 30 Days #60 tab 07/03/24 tiZANidine [Zanaflex] 4 mg PO BID PRN 30 Days #60 tab 07/03/24 Controlled Substance Measures - Controlled Substance Measures Is patient prescribed a controlled substance at discharge?: Yes When asked, does pt state using other controlled substances?: No If prescribed controlled substance>3 days was MAPS reviewed?: Yes
== END ==
LOC: PNWHC3 07:36
PROVIDERS: ATTEND Specialist
DX: M48.061 Spinal stenosis, lumbar region without neurogenic claudication (principal); M47.26 Other spondylosis with radiculopathy, lumbar region; Z88.6 Allergy status to analgesic agent
CPT/HCPCS: 99211

== ENCOUNTER → 2024-08-25 | Outpatient (CLI) | payer MEDICARE, OTHER ==
[2024-08-25 15:40] LABS: ALT 38 U/L (10-49); AST 32 U/L (14-35); Albumin 4.2 g/dL (3.8-4.9); Albumin/Globulin Ratio 1.45 Ratio (1.60-3.17); Alkaline Phosphatase 61 U/L (41-126); Blood Urea Nitrogen 12.2 mg/dL (9.0-27.0); Calcium 9.2 mg/dL (8.7-10.3); Carbon Dioxide 26.5 mmol/L (21.6-31.8); Chloride 102 mmol/L (96-109); Globulin 2.9 g/dL (1.6-3.3); Glucose 103 mg/dL (70-110); Potassium 4.6 mmol/L (3.5-5.5); Sodium 139 mmol/L (135-145); Total Bilirubin 0.6 mg/dL (0.3-1.2); Total Protein 7.1 g/dL (6.2-8.2)
[2024-08-25 15:59] LABS: Basophils # (A) 0.04 X 10*3/uL (0.00-0.10); Basophils % (A) 0.7 %; Eosinophils # (A) 0.14 X 10*3/uL (0.04-0.35); Eosinophils % (A) 2.3 %; HCT 44.4 % (39.6-50.0); HGB 14.6 g/dL (13.0-17.0); Lymphocytes # (A) 1.71 X 10*3/uL (0.90-5.00); Lymphocytes % (A) 28.6 %; MCH 30.5 pg (27.0-32.0); MCHC 32.9 g/dL (32.0-37.0); MCV 92.9 FL (80.0-97.0); Mean Platelet Volume 10.5 FL (9.5-12.2); NRBC Per 100 WBC 0 X 10*3/uL (0.00-0.01); Neutrophils # (A) 3.47 X 10*3/uL (1.80-7.70); Neutrophils % (A) 58.1 %; Platelet Count 259 X 10*3/uL (140-440); RBC 4.78 X 10*6/uL (4.40-5.60); RDW 12.3 % (11.5-14.5); WBC 5.98 X 10*3/uL (4.50-10.00)
[2024-08-25 17:07] LABS: INR 1.01 sec (0.93-1.11); Prothrombin Time 11.5 sec (9.9-11.9)
== END | disposition home or self-care (01) ==
LOC: LABPAT 10:40
PROVIDERS: ATTEND Internal Medicine
DX: Z01.812 Encounter for preprocedural laboratory examination (principal)
CPT/HCPCS: 80053; 85025; 85610

== ENCOUNTER → 2024-08-28 | Outpatient (CLI) | payer MEDICARE, OTHER ==
[2024-08-28 09:06] VITALS: BP 134/81; PULSE 75; RESP 16; TEMP 97.1
--- NOTE | 2024-08-28 15:00 | P.PAINPG ---
PQRS Measure Charge Sheet Comment: HISTORY OF PRESENT ILLNESS: A 74 yr old male w at side presents today w severe and chronic LBP x 1 yr secondary to radiculopathy, spondylosis and facet arthropathy without myelopathy for medication refills. Pt states pain level is provoked at 8 /10 in intensity, constant, localized in the lower spine, predominantly axial, sharp in character w occasional shooting pain towards the BLEs. Pain is provoked by standing for periods > 15 min. Pain is alleviated by PT x 4 wks in December 2023, physician guided exercises weekly since Sep 2023, medication, manual massage, repositioning and rest. Has not been taking [place] 5/325mg as they are ineffective in treating pain. Notified to discard at pharmacy facility upon pickup of new short course prescription. Acknowledged understanding. T12-S1 surgery scheduled w Dr Ly on 09/08/24. Interventional procedures include JUNE L4-L5 x1 Medications include Tyl, [place] 5/325mg #60 , Zanaflex 4mg #60 REVIEW OF ORGAN SYSTEMS: CONSTITUTIONAL: No fevers or chills. No recent weight loss. NEUROLOGICAL: + numbness and tingling along the distal extremities. No seizure disorders or headaches. MUSCULOSKELETAL: + pain PSYCHIATRIC: Denies current depression or suicidal thoughts. Physical Examinations : Constitutional : Cooperative , not in acute distress . Neurologic : Cranial nerve II to XII intact. No focal neurological deficits. Psychiatric : alert & oriented x 3. Matching mood & appropriate affect. Judgment & insight intact. Musculoskeletal : Cervical Spine Motor strength in the deltoid and biceps: Normal right side. Normal Left side Motor strength biceps and the wrist extensors: Normal right side . Normal left side Motor strength in the triceps muscle: Normal right side. Normal left side Deep tendon reflexes: Normal at the biceps. Normal at Brachioradialis. Normal at triceps Vertebral body tenderness to deep palpation over Cervical facet loading test: positive bilaterally Spurling test: positive bilaterally Neck distraction test: positive bilaterally Ivy sign: positive bilaterally Lumbar spine Motor strength lower extremities ,thigh and legs 5/5 Right side , 5/5 Left side Deep tendon reflexes : Normal Knee Jerk. Normal Ankle Jerk Vertebral body tenderness over L4 Senior Test positive BL L4-L5 Lumbar facet Loading Test: positive Right / positive Left L4-L5, L5-S1 Range of motion of the lumbar spine Flexion 30 degrees, extension 10 degrees Straight Leg Raise test: Left/ Right positive at degree Jaquelin test: positive right / positive left. Severe tenderness over the Sacroiliac joint on the Right / Left sides Gaenslen test: positive bilaterally Seated flexion test: positive bilaterally. Sacral spine : Severe tenderness over the Sacroiliac joint: right side / left side Range of motion: Flexion of the lumbar spine <60 degrees Range of motion: Extension of the lumbar spine <20 degrees Gaenslen's Test positive Jaquelin test: positive right side / left side Thigh Thrust Test Sacral Thrust Test Imaging: Lumbar x ray from 11/28/23 reviewed MRI non contrast of the lumbar spine from 01/20/24 reviewed Assessment/ Plan : L4-L5 spinal stenosis, Lumbar radiculopathy Recommendation of follow up w Dr Ly for surgery scheduled 09/08/24. Discontinue [place] narcotic agreement. Short course of Percocet 5/325mg #18 NR. Use, side effects, adverse reactions, safe storage discussed. All questions answered. I have spent greater than 30 minutes on patient care today. Dr Gleason was available by phone for the evaluation of this patient. The time was used to review the medical records including relevant urine studies and Prescription history (MAPs), review of the available imaging, evaluation and examination of the patient, coordination of care with the medical staff and if applicable referring physicians, as well as creation of the medical record PQRS Narrative: Hx Alcohol Use (MH) No Home Medications: Ambulatory Orders Levothyroxine Sodium [Synthroid] 50 mcg PO DAILY 01/10/21 Lisinopril-Hctz 20-12.5 mg [Zestoretic 20-12.5] 1 tab PO DAILY 01/10/21 Lovastatin [Mevacor] 20 mg PO DAILY 01/10/21 Aspirin 81 mg PO DAILY 11/14/23 Multivit-Min/FA/Lycopen/Lutein [Centrum Silver Tablet] 1 each PO DAILY 11/14/23 tiZANidine [Zanaflex] 4 mg PO BID PRN 30 Days #60 tab 07/03/24 oxyCODONE HCL/ACETAMINOPHEN [Percocet 5-325 mg] 1 tab PO Q4HR PRN 3 Days #18 tab 08/28/24 Controlled Substance Measures - Controlled Substance Measures Is patient prescribed a controlled substance at discharge?: Yes When asked, does pt state using other controlled substances?: No If prescribed controlled substance>3 days was MAPS reviewed?: Prescribed <3 Days
== END ==
LOC: PNWHC3 07:41
PROVIDERS: ATTEND Specialist
DX: M48.061 Spinal stenosis, lumbar region without neurogenic claudication (principal); M54.16 Radiculopathy, lumbar region; G89.29 Other chronic pain; Z88.6 Allergy status to analgesic agent
CPT/HCPCS: 99211

== ENCOUNTER → 2024-08-28 | Outpatient (CLI) | payer MEDICARE, OTHER ==
[2024-08-28 11:07] VITALS: BP 114/71; PULSE 93; RESP 16; TEMP 98.2
--- NOTE | 2024-08-28 11:24 | P.PROGSL ---
Subjective DATE: 08/28/2024 FOLLOW UP VISIT. Patient with obstructive sleep apnea hypopnea syndrome return to sleep center for follow-up visit. Information from previous visit have been reviewed. Patient is using PAP equipment every night for the whole night, getting PAP supplies in time. The patient does not have significant problems with the mask, PAP unit and humidification. [place] sleepiness scale is 7, which is normal. I checked information from PAP unit. PAP unit pressure 6-15, average 10.7 cm H2O. Usage is 100% for more then 4 hours, average 7 hours per night. Leak is 4 l/m, which is in very good range. Apnea Hypopnea Index is 2.9, which is normal. MEDICATIONS have been reviewed, please see below. During physical exam: GENERAL: A pleasant patient without any distress. VITAL SIGNS: Please see below, weight is 264 lbs. HEENT: PERRLA, EOMI.low position of soft palate, Mallapati 4 . NECK: Supple. No JVD. LUNGS: Clear to percussion and to auscultation. Good air exchange. No wheezing or rhonchi. HEART: S1, S2 regular. ABDOMEN: Soft and nontender. Obese EXTREMITIES: No clubbing or cyanosis. HUMAN INSIGHTS LEAD ADS MARKETING: Awake, alert, and oriented x3. No focal deficit. Impressions: 1. Obstructive sleep apnea-hypopnea syndrome. Patient demonstrated great compliance with treatment, benefiting from treatment. 2. Obesity, BMI 50.7, patient lost 8 pounds comparing with the previous visit. 3. Back problems, patient is preparing for back fusion surgery. 4. Hypertension. 5. Hyperlipidemia. 6. Hypothyroidism. 7. Status post umbilical hernia repair. 8. Status post bilateral surgical treatment for carpal tunnel syndrome. Plan: 1. Continue using PAP equipment every night for the whole night. 2. Sleep hygiene with regular time in bed for at least 7.5-8 hours 3. PAP unit should stay lower then position of the head. 4. Advised patient to remove all remaining water from humidifier canister daily and make it dry after each usage. Refill canister with fresh distilled water before each usage. 5. Watching and losing weight. 6. Precautions related to driving. No driving if feel any sleepiness. 7. I will maintain prescription for PAP supplies including mask, tube, filters. 8. Follow up visit in 8 months or earlier if patient has any problems. Thank you very much for allowing me to participate in the management of your patient. Nicolas Hatfield MD, PhD, FAASM. Diplomat of [place] [employer], Sleep Medicine Board by [place] [employer] Leader of [facility] [place] Objective - Vital Signs Vital Signs: Vital Signs Temp 98.2 F 08/28/24 11:03 Pulse 93 08/28/24 11:03 Resp 16 08/28/24 11:03 BP 114/71 08/28/24 11:03 Pulse Ox 93 L 08/28/24 11:03 FiO2 Intake & Output 08/27/24 08/28/24 08/28/24 18:59 06:59 18:59 Weight 119.975 kg Home Medications: Home Medications Medication Instructions Recorded Confirmed Type Levothyroxine Sodium [Synthroid] 50 mcg PO DAILY 01/10/21 08/28/24 History Lisinopril-Hctz 20-12.5 mg 1 tab PO DAILY 01/10/21 08/28/24 History [Zestoretic 20-12.5] Lovastatin [Mevacor] 20 mg PO DAILY 01/10/21 08/28/24 History Aspirin 81 mg PO DAILY 11/14/23 02/25/24 History Multivit-Min/FA/Lycopen/Lutein 1 each PO DAILY 11/14/23 02/26/24 History [Centrum Silver Tablet] tiZANidine [Zanaflex] 4 mg PO BID PRN 30 Days #60 tab 07/03/24 Rx oxyCODONE HCL/ACETAMINOPHEN 1 tab PO Q4HR PRN 3 Days #18 tab 08/28/24 Rx [Percocet 5-325 mg]
== END ==
LOC: 3 N SLEEP 10:26
PROVIDERS: ATTEND Internal Medicine
DX: G47.33 Obstructive sleep apnea (adult) (pediatric) (principal); E66.9 Obesity, unspecified; I10 Essential (primary) hypertension; E78.5 Hyperlipidemia, unspecified; E03.9 Hypothyroidism, unspecified; Z48.815 Encounter for surgical aftercare following surgery on the digestive system; Z68.43 Body mass index [BMI] 50.0-59.9, adult; Z99.89 Dependence on other enabling machines and devices
CPT/HCPCS: 99212

== ENCOUNTER → 2024-09-01 | Outpatient (CLI) | payer MEDICARE, OTHER | END | disposition home or self-care (01) | LOC: LABPAT 07:11 | PROVIDERS: ATTEND Orthopaedic Surgery | DX: Z01.818 Encounter for other preprocedural examination (principal) | CPT/HCPCS: 86850; 86900; 86901; 87070 ==

== ENCOUNTER 2024-09-08 05:46 | Inpatient (IN) | payer MEDICARE, OTHER ==
[2024-09-02 11:56] VITALS: BMI 40.3
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
[~2024-09-08 05:46] MED LIST changes: -LACTATED RINGERS 1,000 ML IV SCH; +ONDANSETRON 4 MG/2 ML VIAL IVP PRN; +TRANEXAMIC 1,000 MG/100ML-NACL 1,000 MG in SALINE 1 100ML.BAG IVPB PRN
[2024-09-08] MEDS ORDERED: MIDAZOLAM 2 MG/2 ML VIAL IV PRN (06:10)
[2024-09-08] MEDS ORDERED: fentaNYL (PF) 50 MCG/ML 2 ML AMP IVP PRN (06:10)
[2024-09-08] MEDS ORDERED: LIDOCAINE 1% (10MG/ML) FOR IV START INTRADERMA PRN (06:10)
[2024-09-08] MEDS: ACETAMINOPHEN TAB 500 MG TAB PO PRN (06:32)
[2024-09-08] MEDS: GABAPENTIN 300 MG CAP PO PRN (06:32)
[2024-09-08] MEDS: ONDANSETRON 4 MG/2 ML VIAL IVP ONE (07:04)
[2024-09-08] MEDS: IV FLUID CONTINUATION 1,000 ML IV ONE (07:06)
[2024-09-08] MEDS: LACTATED RINGERS 1,000 ML IV SCH (07:07)
[2024-09-08] MEDS ORDERED: ALBUMIN HUMAN 5% (25gm) 500 ML VIAL IVPB ONE (07:35)
[2024-09-08] MEDS ORDERED: TRANEXAMIC 1,000 MG/100ML-NACL PREMIX BAG ONE (07:35)
[2024-09-08] MEDS ORDERED: KETAMINE HCL IN 0.9 % NACL 50 MG/5 ML SYRINGE ONE (07:35)
[2024-09-08] MEDS ORDERED: ROCURONIUM 10 MG/ML (5 ML VIAL) IV ONE (07:35)
[2024-09-08] MEDS ORDERED: PHENYLEPHRINE 10 MG/ML VIAL ONE (07:35)
[2024-09-08] MEDS ORDERED: fentaNYL (PF) 50 MCG/ML 2 ML AMP ONE (07:35)
[2024-09-08] MEDS ORDERED: SUCCINYLCHOLINE CHLORIDE 200 MG/10 ML VIAL IV ONE (07:35)
[2024-09-08] MEDS ORDERED: LIDOCAINE 1% INJ 10MG/ML (20 ML MDV) ONE (07:35)
[2024-09-08] MEDS ORDERED: HYDROmorphone (PF) 1 MG/ML ONE (07:35)
[2024-09-08] MEDS ORDERED: PROPOFOL 10 MG/ML 20 ML VIAL IV ONE (07:35)
[2024-09-08] MEDS: ceFAZolin 3 GM in SODIUM CHLORIDE 0.9% 100 ML IVPB PRN (07:40)
[2024-09-08] MEDS: LACTATED RINGERS 1,000 ML IV ONE ×5 (08:00→16:35)
[2024-09-08] MEDS: GENTAMICIN 80 MG in SODIUM CHLORIDE 0.9% IRRIGATIO 3,000 ML IRRIGATION ONE (08:25)
[2024-09-08] MEDS: ceFAZolin 3,000 MG in SODIUM CHLORIDE 0.9% IRRIGATIO 3,000 ML IRRIGATION ONE (08:25)
[2024-09-08] MEDS: THROMBIN (BOVINE) 5,000 UNIT VIAL TOPICAL ONE ×2 (08:25)
--- NOTE | 2024-09-08 08:30 | P.ANPRN ---
Procedure Note - Anesthesia - Invasive Line Right Arterial Line Time Out Performed: Yes Date of Procedure: 09/08/24 Time of Procedure: 07:15 Location of Patient: PreOp Preparation: Sterile Prep Arterial Line Location: Radial Ultrasound Used: Yes Purpose - Visualization and Identification of Vasculature: Yes Needle Guage: 20 Image Stored and Saved: Yes Narrative: Invasive line placement per sterile protocol utilized. After previous attempts by CONVERTER SUPERVISOR, right forearm prepped and draped. 1% lidocaine 3 ml injected subq. Under u/s guidance 20 g Arrow inserted into right radial artery. Catheter advanced over the wire. Line sutured in place and sterile dressing applied Right Central Line Time Out Performed: Yes Date of Procedure: 09/08/24 Time of Procedure: 07:20 Location of Patient: PreOp Preparation: Sterile Prep, Sterile Dressing Central Line Location: Internal Jugular Ultrasound Used: Yes Purpose - Visualization and Identification of Vasculature: Yes Needle Guage: 18 Image Stored and Saved: Yes Narrative: Invasive line placement per sterile protocol utilized. Right neck prepped and draped. 1% lidocaine 3 ml injected subq. Under u/s guidance, 18 g needle advanced into R IJ. Venous blood obtained. Wire advanced to 20 cm. Small liset with #9 blade over the wire. Dilator passed easily. TLC advanced over the wire after all ports were flushed. Line sutured in place. Biopatch and sterile dressing applied.
[2024-09-08] MEDS: SODIUM CHLORIDE 0.9% 100 ML with ceFAZolin 3,000 MG IV ONE (11:54)
[2024-09-08] MEDS: SODIUM CHLORIDE 0.9% 150 ML with ceFAZolin 3,000 MG IV ONE (11:54)
[2024-09-08] MEDS: TOBRAMYCIN SULFATE 1.2 GM VIAL MISCELLANE ONE (13:02)
[2024-09-08] MEDS: VANCOMYCIN 1,000 MG VIAL MISCELLANE ONE ×2 (13:02→13:24)
[2024-09-08 13:03] LABS: ABG Base Excess -0.7 mmol/L; ABG Glucose Whole Blood 142 mg/dL (75-99); ABG HCO3 25 mmol/L (21-25); ABG Hematocrit 34 % (34.0-46.0); ABG Ionized Calcium 4.3 mg/dL (4.5-5.3); ABG Oxygen Saturation 99.2 % (94-97); ABG PCO2 46 mmHg (35-45); ABG PH 7.35 (7.35-7.45); ABG PO2 247 mmHg (83-108); ABG Potassium Whole Blood 4.2 mmol/L (3.4-4.5); ABG Sodium Whole Blood 137 mmol/L (135-146); ABG TCO2 24 mmol/L (19-24)
[2024-09-08] MEDS: VANCOMYCIN 2,000 MG in SODIUM CHLORIDE 0.9% 500 ML 500 ML IVPB PRN (13:18)
[2024-09-08] MEDS ORDERED: MAGNESIUM HYDROXIDE 2,400 MG/30 ML CUP PO PRN (13:25)
[2024-09-08] MEDS ORDERED: SENNOSIDES-DOCUSATE SODIUM 1 EACH TAB PO PRN (13:25)
[2024-09-08] MEDS ORDERED: ONDANSETRON 4 MG/2 ML VIAL IVP PRN (13:25)
[2024-09-08] MEDS ORDERED: oxyCODONE-APAP 5-325MG 1 EACH TAB PO PRN (13:28)
[2024-09-08] MEDS ORDERED: oxyCODONE-APAP 10-325MG 1 EACH TAB PO PRN (13:29)
--- NOTE | 2024-09-08 15:06 | P.OP ---
Date of Procedure: 09/08/24 Preoperative Diagnosis: 1.L1-S1 spondylosis with stenosis 2.L4-5 GRADE II SPONDYLOLISTHESIS, UNSTABLE 3. NEUROGENIC CLAUDICATION 4. LE WEAKNESS 5. LE RADICULOPATHY 6. LOW BACK PAIN 7. COMPLEX MEDICAL PATIENT Postoperative Diagnosis: 1.L1-S1 spondylosis with stenosis 2.L4-5 GRADE II SPONDYLOLISTHESIS, UNSTABLE 3. NEUROGENIC CLAUDICATION 4. LE WEAKNESS 5. LE RADICULOPATHY 6. LOW BACK PAIN 7. COMPLEX MEDICAL PATIENT Procedure(s) Performed: 1. L1-2 INTRADISCAL, 3 COLUMN OSTEOTOMY, FOR DEFORMITY CORRECTION 2. L3-4 INTRADISCAL, 3 COLUMN OSTEOTOMY, FOR DEFORMITY CORRECTION 3. L4-5 INTRADISCAL, 3 COLUMN OSTEOTOMY, FOR DEFORMITY CORRECTION 4. L5-S1 INTRADISCAL, 3 COLUMN OSTEOTOMY, FOR DEFORMITY CORRECTION 5. L2-3 POSTEROLATERAL AND INTERBODY FUSION 6. L1-2 POSTEROLATERAL AND INTERBODY FUSION 7. L3-4 POSTEROLATERAL AND INTERBODY FUSION 8. L4-5 POSTEROLATERAL AND INTERBODY FUSION 9. L5-S1 POSTEROLATERAL AND INTERBODY FUSION 10. T10-L1 POSTEROLATERAL INSTRUMENTED FUSION 11. INSTRUMENTATION, SEGMENTAL [id number] 12. BILATERAL OPEN SACROILIAC JOINT FUSION FOR LONG CONSTRUCT STABILITY 13. ATTACHMENT OF THE CAUDAL END OF THE CONSTRUCT TO THE BONY PELVIS NOT SACRUM 14. L1-2, L2-3, L3-4, L4-5, L5-S1 BILATERAL LAMINECTOMY, COMPLETE FACETECTOMY AND FORAMINOTOMY FOR COMPLETE NEURAL DECOMPRESSION, DEFORMITY CORRECTION AND CAGE PLACEMENT 15. INSERTION OF BIOMECHANICAL DEVICES, CAGES x5, L1-2, L2-3, L3-4, L4-5, L5-S1 INTERBODY 16. USE OF Magic Wheels NAVIGATION FOR THE ASSISTANCE IN ACCURATE SCREW PLACEMENT USE OF IONM ALL SCREWS TESTING > 20 mA MOD22: THIS CASE TOOK 75% LONGER THAN EXPECTED DUE TO THE PATIENTS BODY HABITUS, BMI >40, EXTENT OF LUMBAR DISEASE AND HIGH TECHNICALLITY OF THE CASE. Implants: -NITA EVEREST RODS AND SCREWS -SI BONE GRANIT PELVIC SCREWS -SI BONE TORQUE SI FUSION SCREWS -GLOBUS SABLE CAGES X4 12MM, 12MM, 10MM, 10MM -GLOBUS INTRALIFT CAGE X1 8MM LONG -CONTOUR, MAGNATOS, ARTHROCELL, ALLOCELL, AUTOGRAFT, DBM Anesthesia: GETA Surgeon: Roverto Ly Clam Sorter #1: Portillo Reid (WAS PRESENT FROM DISSECTION TO DRESSING PLACEMENT) Clam Sorter #2: Pierre Schreiber (WAS PRESENT FOR POSITIONING TO START OF DISSECTION) Estimated Blood Loss (ml): 1,250 IV fluids (ml): 3,200 Urine output (ml): 500 Pathology: none sent Condition: stable Disposition: PACU Indications for Procedure: 74-year-old male presents with severe, chronic lumbar pain (VAS 9/10) with bilateral lower extremity radiculopathy and right foot numbness. Symptoms are exacerbated by positional changes and prolonged walking. CT and MRI imaging reveal severe multilevel spondylosis, Grade II spondylolisthesis at L4-5 with severe central and foraminal stenosis, and sagittal positive alignment with collapse and deformity. Conservative management including physical therapy, home exercises, activity modification, medications ([place]), and epidural injections have failed to provide sustained relief. Due to progressive neurological symptoms and severe multilevel pathology, surgical intervention with [id number] decompression and fusion is recommended to prevent further neurological deterioration and potential paralysis. PROCEDURE: [id number] POSTEROLATERAL AND INTERBODY FUSION WITH DECOMPRESSION ARTLINE CENTRAL LINE GETA INPT ICU AFTER SURGERY PRE OP ABX PER PROTOCOL TXA 2 G PRE OP MEDS DIRECTED Description of Procedure: [id number] Decompression and fusion FREDRICK The patient was seen and examined in the preoperative area. All preoperative protocols were followed. Informed consent was obtained, risks and benefits of the procedure were discussed at length. Risks including bleeding infection damage to the surrounding tissue and risk of reoperation were discussed with the patient. Risk of anesthesia up to and including was discussed with the patient. These are outlined in the risk review. They were willing to accept these risks and all the risks of surgery. The patient was given a weight-based dose of antibiotics in the form of 3 g Ancef. The patient was seen and evaluated by the anesthesia team who deemed them fit for surgery. The site was marked, the patient was willing to proceed with the procedure. The patient was transferred to the operative suite by the Department of anesthesia. They were then drifted off to sleep by the department anesthesia and GETA was performed. The patient tolerated this well. Martinez catheter was placed by nursing staff, a-traumatically. Once confirmation of lines and ventilation the patient was transferred to a prone Trios spine table very carefully. The head was secured and stable. X Ray confirmed alignment. All bony prominences including wrists, elbows, axilla, chest, hips, and thighs, and feet were padded very well. Special attention was paid to the genitalia, and these were padded accordingly. SCDs were placed on bilateral lower extremities and were connected. Arms were well padded and placed at 90/90 up and out and well padded. Safety strap and tape placed on the patient. Once in position, again we confirmed good ventilation capabilities and that lines were running appropriately. The patients lumbosacral pelvic was then exposed. Hair was removed for incision. 1010s were placed outlining the incision site. Standard alcohol was used to clean the incision site and allowed to dry. C-arm was used to bio-christian the patient and confirm level for incision which was marked with a skin marker. Operative briefing was performed with all teams and everyone in agreement to proceed. The patient was then prepped and draped in a normal sterile fashion. Timeout was then performed, and all parties agreed with the procedure to be performed. Midline skin incision was then made over the previously bookmarked area and dissection taken down to the lumbosacral fascia which was identified and cleaned with a garcia. Once midline was identified, fasciotomy was made over the SP of [id number]. Subperiosteal dissection was then taken down over the lamina and facet joints and TPs were exposed and trough made posterolateral. TPs were then decorticated L1-S1 and sacral ala with a high speed allyn for lateral fusion. Dissection was taken out over the sacrum to the pelvis. SI joint identified and modified [place] starting point for pelvic screws identified as well. Retractors placed. Wound was irrigated and lateral image with penfield 4 placed at the pars of L4 confirmed levels for operation. SP clamp was then placed for the [employer] navigation tracker and secured at L2 for the first set of screws. The wound was then filled with NSS and Z-drape. A 3D Ziehm spin was then obtained and registered. Once confirmation of accuracy screws were then placed from T10-L2 using navigation. Navigated high speed allyn was used to make a commercial helicopter pilot hole followed by a navigated awl-tap passed through the pedicle into the body. A ball tip probe then confirmed within the pedicle. Globus Screws then measured and placed using a navigated screwdriver. After screws were placed from T10-L2 the tracker was replaced at S1 and a second 3D Ziehm spin was then obtained and registered. Once confirmation of accuracy screws were then placed from L3-Pelvis using navigation. AP image confirmed safe placement of screws. Screws were placed similarly as described above. For pelvic screws, starting point was selected with a navigated allyn and starting point made. Then a navigated awl was passed through the corridor above the sciatic notch within bone. Virtual screw was dropped and a feeler was then used to confirm within bone. Then a navigated racing car driver was used to place screws in the pelvis b/l. Screws were confirmed to be safe, stabilizing and fusing the SIJ on AP/LAT/INLET/OUTLET films. We then irrigated the wound and tested screws. All screws tested > 20 mA except for L5 on the left which was 18 mA. We then proceeded to decompression and interbody placement. Starting at L5-S1, bilateral laminectomy, complete facetectomy and foraminotomies were performed using high speed bur, Kerrison rongeur. There was exuberant bone formation, osteophytes and scar tissue surrounding these joints as well as the dura. Once exposed the neural elements were protected and an intradiscal osteotomy, 3 column, was performed for deformity correction at L5- S1. Osteotome was used to make osteotomy in L5 and S1 and for complete disc removal. This was passed into the anterior 1/3 of L5. This allowed for loosening of this level and correction. Down biting curette was used to release the disc annulus and PLL across completely. This allowed for disc removal and cartilage removal followed by pituitary. Cage was then selected based on s having and trials. Bleeding endplates were encountered and cartilage removed. Autograft, allograft were then placed anterior to the cage. The cage was then impacted into place under lateral imaging while protecting neural elements. The cage was then expanded into position and showed good lift and correction. Sabianism of lordosis and height achieved. Meticulous hemostasis then performed. Cage was backfilled with ifactor, autograft and Arthrocell and the area irrigated. We then proceeded to L4-5. At L4-5, bilateral laminectomy, complete facetectomy and foraminotomy were performed as described above. Again, exuberant scar tissue and bone formation was encountered and at this level. There was also a large disc osteophyte complex that was identified once disc space was found. The dura was carefully dissected off this anteriorly and b/l. Once encountered, the disc space was then accessed in a similar fashion and neural elements protected.Once exposed the neural elements were protected and an intradiscal osteotomy, 3 column, was performed for deformity correction at L4-5. Osteotome was used to make osteotomy in L5 and S1 and for complete disc removal. This was passed into the anterior 1/3 of L4. This allowed for loosening of this level and correction. Down biting curette was used to release the disc annulus and PLL across completely. This allowed for disc removal and cartilage removal followed by pituitary. Once completed and complete discectomy performed there was good mobility at this level. Cage was then sized and selected. Trial was placed and confirmed on AP. Autograft and allograft was then placed anterior in the disc space and the cage was then inserted and impacted into place under lateral. AP image, as before, was taken to ensure midline placement. The cage was then expanded into position. The wound was irrigated. Meticulous hemostasis then performed, and attention turned to L3-4. At L3-4 again bilateral laminectomy, complete facetectomy and foraminotomy were performed along with intradiscal 3 column osteotomy for deformity correction as described above. The neural elements were less scared at this level; however, it was very unstable and stenotic. The elements were then protected, and disc space accessed. Sequential shaving performed until desired height and lordosis. Cage selected, and graft placed anterior to the cage within the disc space. Cage was then placed under lateral image, expanded and had good height, lordosis and deformity correction. The wound was irrigated, and meticulous hemostasis performed once again. We then proceeded to the L2-3 level. At L2-3 again bilateral laminectomy, complete facetectomy and foraminotomy were performed. Neural elements were mobilized and then protected, and disc space accessed. Sequential shaving performed until desired height and lordosis. Cage selected, and graft placed anterior to the cage within the disc space. Cage was then placed under lateral image, expanded and had good height, lordosis and deformity correction. The wound was irrigated, and meticulous hemostasis performed once again. We then proceeded to L1-2 level after irrigation of wound. Finally at L1-2 due to severe collapse once again, , bilateral laminectomy, complete facetectomy and foraminotomies were performed using high speed bur, Kerrison rongeur. Once exposed the neural elements were protected and an intradiscal osteotomy, 3 column, was performed for deformity correction at L1-2. Osteotome was used to make osteotomy in L1 and L2 and for complete disc removal. This was passed into the anterior 1/3 of L1. This allowed for loosening of this level and correction. Down biting curette was used to release the disc annulus and PLL across completely. This allowed for disc removal and cartilage removal followed by pituitary. Cage was then selected based on shaving and trials. Bleeding endplates were encountered and cartilage removed. Autograft, allograft were then placed anterior to the cage. The cage was then impacted into place under lateral imaging while protecting neural elements. The cage was then expanded into position and showed good lift and correction. Sabianism of lordosis and height achieved. Meticulous hemostasis then performed. Cage was backfilled with ifactor, autograft and Arthrocell and the area irrigated. AP imaging confirmed good placement of all cages and good reduction and coronal balance restored. Screws all in a good position. We then proceeded to josé placement and reduction. Attention was then drawn to josé placement and further reduction. Rods were selected, measured, cut and bent to appropriate lordosis. They were then secured into pelvic screws b/l. Sequential reduction then done bilaterally into each screw and set screw placed. Set screws were then final tightened and lateral image confirmed good sagittal alignment. Again meticulous hemostasis was done and fibrillar placed in areas of more oozing as well as surgicel powder. The wound was continuously irrigated at intervals in the case and now with more Iricept for a total of 4 bottles, two litres of a betadine irrigation then irrigated with 3L Ancef irrigation, 3L gentamicin irrigation and 6L NSS. Surgicel was then placed on the dura, which was inspected and had no injury. Then, in the posterolateral gutter was placed, MagnatOs, Contour, Autograft and allograft. This was impacted into position and surgical placed over it. Stimulan beads were placed deep in the wound along with 2g Vanco powder. Two deep, subfascial drains were placed and secured with a stitch. We then proceeded with layered closure. #1 PDS placed in the deep fascia for water tight closure. 0 Vicryl placed in the deep subq, 2-0 placed in the superficial subq and tian placed in the skin. The wound edges approximated very well. The wound was then cleaned with ETOH and dressed with optifoam dressing, drain sponges and tegaderms. Drains sewed into position. IONM confirmed no changes. The patient was then transferred off the [facility] spine table to their hospital bed a-traumatically. Drains continued to hold suction. The patient was then extubated and transferred to the ICU in stable condition having tolerated the procedure with no complications.
[2024-09-08] MEDS: CALCIUM CHLORIDE 100 MG/ML 10 ML SYRINGE IVP STA (15:15)
[2024-09-08] MEDS ORDERED: NALOXONE 0.4 MG/ML 1 ML VIAL IV PRN (15:19)
[2024-09-08] MEDS ORDERED: HYDROmorphone PCA 10 MG/50 ML BAG IV PRN (15:19)
--- NOTE | 2024-09-08 15:21 | FL ---
EXAMINATION TYPE: FL guidance operating room, XR lumbar spine 2 or 3V DATE OF EXAM: 09/08/2024 CLINICAL HISTORY: Low back pain TECHNIQUE: Fluoroscopy. Intraoperative 2 views lumbar spine. COMPARISON: CT thoracic and lumbar spine June 16, 2024. FINDINGS: Fluoroscopic guidance was provided during T10 to pelvis PLDF procedure performed by Dr. Meng hurtado. A total of 2 minutes 12 seconds of fluoroscopic time was utilized during the procedure and 13 spot images was acquired. Total dose area product (DAP) in uGy*m?, mGy*cm? (or similar: 32.629. Intraoperative images acquired show placement of posterior interpedicular carotid screws from the T10 level bilaterally into the pelvis and metallic disc spacers placed from L1-L2 through the L5-S1 leve ls. Alignment is grossly satisfactory on the intraoperative images obtained. IMPRESSION: As Above. [facility], , 09/08/2024 3:18 PM
[2024-09-08] MEDS: PHENYLEPHRINE 40 MG in SODIUM CHLORIDE 0.9% 250 ML IV SCH (15:32)
[2024-09-08 15:36] LABS: Basophils % (A) 0 %; Eosinophils % (A) 0 %; HCT 35.2 % (39.0-53.0); Lymphocytes # (A) 1.7 k/uL (1.0-4.8); Lymphocytes % (A) 7 %; MCH 31.8 pg (25.0-35.0); MCHC 34.2 g/dL (31.0-37.0); MCV 92.9 fL (80.0-100.0); Mean Platelet Volume 8.7; Monocytes # (A) 0.9 k/uL (0-1.0); Monocytes % (A) 4 %; Neutrophils # (A) 20.4 k/uL (1.3-7.7); Neutrophils % (A) 88 %; Platelet Count 164 k/uL (150-450); RBC 3.79 m/uL (4.30-5.90); RDW 12.9 % (11.5-15.5); WBC 23.2 k/uL (3.8-10.6)
[2024-09-08] MEDS: ALBUMIN HUMAN 5% 250 ML in EMPTY BAG 1 BAG IVPB STA (15:39)
[2024-09-08 15:51] LABS: INR 1.2 (<1.2)
[2024-09-08] MEDS: DEXAMETHASONE SOD PHOSPHATE 4 MG/ML 1 ML VIAL IV ONE (15:57)
[2024-09-08] MEDS: VANCOMYCIN IV PER PHARMACY 1 EACH MISC MISCELLANE ONE (15:58)
[2024-09-08 16:01] LABS: Partial Thromboplastin Time 21.9 sec (22.0-30.0)
[2024-09-08 17:05] LABS: Glucose,Whole Blood 131 mg/dL (70-110)
[2024-09-08 17:11] LABS: African American GFR (CKD) 85 (>60 ml/min/1.73 sqM); Anion Gap 13 mmol/L; Blood Urea Nitrogen 14 mg/dL (9-20); Calcium 8.2 mg/dL (8.4-10.2); Carbon Dioxide 19 mmol/L (22-30); Chloride 104 mmol/L (98-107); Glucose 131 mg/dL (74-99); Non-African American GFR(CKD) 73 (>60 ml/min/1.73 sqM); Potassium 4.3 mmol/L (3.5-5.1); Sodium 136 mmol/L (137-145)
[2024-09-08] MEDS: ALBUMIN HUMAN 5% 500 ML in EMPTY BAG 1 BAG IVPB STA (17:42)
[2024-09-08] MEDS: GABAPENTIN 300 MG CAP PO SCH (17:42)
[2024-09-08 17:46] LABS: Allen Test Performed? no
[2024-09-08 17:47] LABS: ABG Base Excess -7.2 mmol/L; ABG HCO3 20 mmol/L (21-25); ABG PCO2 49 mmHg (35-45); ABG PH 7.23 (7.35-7.45); ABG PO2 199 mmHg (83-108); ABG TCO2 22 mmol/L (19-24)
[2024-09-08] MEDS: ceFAZolin 3 GM in SODIUM CHLORIDE 0.9% 100 ML IVPB SCH (18:27)
[2024-09-08] MEDS: ACETAMINOPHEN TAB 325 MG TAB PO SCH (22:25)
[2024-09-09] MEDS: HYDROmorphone 1 MG/ML 1 ML SYRINGE IVP PRN (01:48)
[2024-09-09 02:48] LABS: African American GFR (CKD) >90 (>60 ml/min/1.73 sqM); Anion Gap 8 mmol/L; Basophils % (A) 0 %; Blood Urea Nitrogen 16 mg/dL (9-20); Carbon Dioxide 24 mmol/L (22-30); Chloride 102 mmol/L (98-107); Eosinophils % (A) 0 %; Glucose 143 mg/dL (74-99); HCT 30.6 % (39.0-53.0); HGB 10.7 gm/dL (13.0-17.5); Lymphocytes # (A) 0.9 k/uL (1.0-4.8); Lymphocytes % (A) 5 %; MCH 32.2 pg (25.0-35.0); MCHC 35.1 g/dL (31.0-37.0); MCV 91.9 fL (80.0-100.0); Magnesium 1.8 mg/dL (1.6-2.3); Mean Platelet Volume 8.5; Monocytes # (A) 0.8 k/uL (0-1.0); Monocytes % (A) 5 %; Neutrophils # (A) 14.9 k/uL (1.3-7.7); Neutrophils % (A) 89 %; Non-African American GFR(CKD) 87 (>60 ml/min/1.73 sqM); Platelet Count 132 k/uL (150-450); RBC 3.33 m/uL (4.30-5.90); RDW 13.3 % (11.5-15.5); Sodium 134 mmol/L (137-145); WBC 16.7 k/uL (3.8-10.6)
[2024-09-09] MEDS ORDERED: Magnesium Replacement Protocol 1 EACH MISC MISCELLANE PRN (03:16)
[2024-09-09] MEDS: MAGNESIUM SULFATE-D5W PMX 1 GM in DEXTROSE/WATER 1 100ML.BAG IVPB ONE (03:54)
[2024-09-09] MEDS: LACTATED RINGERS 500 ML IV SCH (06:23)
--- NOTE | 2024-09-09 07:31 | CT ---
EXAMINATION TYPE: CT thor lumbar spine wo con DATE OF EXAM: 09/09/2024 COMPARISON: 06/16/2024 CLINICAL INDICATION: Male, 74 years old with history of s/p [id number] decompr fusion; [facility], s/p T10-p shya decompr fusion CT DLP: 3310.5 mGycm Automated exposure control for dose reduction was used. FINDINGS: There is moderate hypertrophic and degenerative disc disease throughout the visualized thoracolumbar spine. Extensive postsurgical changes involving the lower thoracic spine and the entire lumbar spine with transpedicular screws. Grade 1 anterolisthesis L4-L5. Interbody disc spacers are noted at levels L1-S1. Assessment spinal canal is markedly limited due to artifact and resolution. Spinal canal at the surgi aracely levels with transpedicular screws is nondiagnostic. Assessment spinal canal at the nonsurgical levels of the thoracic spine levels is also suboptimal due to artifact. Consider follow-up MRI if concern for disc herniation or canal stenosis. Suspect photoengraving printer ior spurring at multiple levels throughout the lower, mid and upper thoracic spine which may be resul ting canal stenosis. Reference axial image 47 series 202 And axial image 33 series 202. There is soft tissue edema posteriorly throughout the surgical levels with stabilization josé seen ext ending from the lower thoracic spine to the S1 level. Soft tissue edema and air likely related to rec ent surgery. Correlate clinically to exclude infectious etiology. Small air bubbles are seen in the s manfred canal at level L3 also most likely postsurgical but should be correlated clinically. Transpedicular spine on the left L5 does extend anterior to the anterior cortical margin. There also is postsurgical change involving the sacrum. There is a bony defect on the left may be related to remy cement of the screw and cortical disruption of the left iliac bone\postsurgical fracture. There is bilateral consolidation. Trace of pleural fluid in the differential diagnosis. Central venou s catheter incidentally noted. A drain or wire leads are seen posterior soft tissues of the upper lum bar spine. IMPRESSION: 1. Extensive postsurgical changes involving the lower thoracic spine to the S1 level. Assessment spin al canal at these levels nondiagnostic due to severe metallic artifact. Scattered areas of soft tissu e edema and subcutaneous air likely is related to recent surgery rather than postinfectious but shoul d be correlated clinically. 2. Bibasilar consolidation of the lungs most likely related to postoperative atelectasis favored over pneumonia. Correlate clinically. 3. Additional multilevel moderate hypertrophic and degenerative changes involving the thoracic spine. Assessment spinal canal at these levels is also suboptimal due to artifact. Consider follow-up MRI i f concern for disc herniation or canal stenosis. Suspect posterior spurring at multiple levels throug hout the lower, mid and upper thoracic spine which may be resulting canal stenosis. Reference axial i mage 47 series 202 And axial image 33 series 202. 4. Within the pelvis there are screws extending across the left iliac bone and extend outside the cor tical margin with area of increased density which may represent disruption of the bony cortex and fra cture line. Correlate clinically. Reference image [id number] series 201. [facility], , 09/09/2024 7:29 AM
--- NOTE | 2024-09-09 07:38 | P.PN ---
Subjective Progress Note Date: 09/09/24 Principal diagnosis: S/P [id number] DECOMPRESSION AND FUSION SPINAL STENOSIS, SPONDYLOSIS, LE WEAKNESS, LOW BACK PAIN Patient seen and examined this morning he is doing fairly well he is awake and alert in bed conversing with his nurse and os. He has not been up yet. He has had some pain overnight but is otherwise controlled. He has been somewhat tachycardic and hypotensive overnight as well however nursing states that they just turned off the neodrip he is getting fluids he received blood in PACU as well as cc of Cell Saver. He was on BiPAP 12 at 9 PM last night however this was removed as he was doing much better. He states some pain in his back states no pain in his legs states no numbness and tingling in his perineal region. Beckman is in place with good output around 75 cc/h. Morning labs are reviewed hemoglobin is 10.8 hematocrit is 28 sodium is 134. He is otherwise doing well. He denies any fevers chills shortness of breath or chest pain overnight. Denies any other issues Objective - Vital Signs Vital signs: Vital Signs Temp 97.8 F 09/09/24 04:00 Pulse 105 H 09/09/24 07:00 Resp 14 09/09/24 07:00 BP 107/60 09/09/24 07:00 Pulse Ox 93 L 09/09/24 07:00 FiO2 40 09/08/24 20:34 Intake & Output 09/08/24 09/09/24 09/09/24 18:59 06:59 18:59 Intake Total 4570.045 1813.460 23 Output Total 2100 2160 175 Balance 2470.045 -346.540 -152 Weight 123.4 kg Intake: IV 3952 343 23 0.9 KVO 90 Lactated Ringers 500 ml @ 20 20 20 mls/hr IV .Q24H [facility] Rx#:[id number] Magnesium Sulfate-D5w Pmx 100 1 gm In Dextrose/Water 1 100ml.bag @ 100 mls/hr IVPB ONCE ONE Rx#: [id number] Pressure Bag 33 3 ceFAZolin 3 gm In Sodium 100 Chloride 0.9% 100 ml @ 200 mls/hr IVPB Q8HR [facility] Rx#:[id number] Intake, IV Titration 045 390.460 Amount Phenylephrine 40 mg In 28.045 390.460 Sodium Chloride 0.9% 250 ml @ 0.5 MCG/KG/MIN 23. 051 mls/hr IV .Q11H2M [facility] Rx#:[id number] Oral 1080 Blood Product 590 Rc As-1 Unit 310 [id number] Rc Pheresis As-3 Unit 280 [id number] Output: Drainage 475 100 Left Lower Back 450 100 Right Lower Posterior 25 Back Urine 850 1485 75 Emesis 200 Estimated Blood Loss 1250 Other: Voiding Method Indwelling Catheter ABP, PAP, CO, CI - Last Documented Arterial Blood Pressure 110/45 - Exam Patient is alert and oriented 3 appears well-nourished well-hydrated is in no acute distress. They do not appear septic. On exam the patient has no tenderness to palpation of her thoracic or lumbar spine. There is no edema or ballottement sign. Lower extremities with 4/5 strength in all major muscle groups Upper extremities show [5]/5 strength in all major muscle groups. Secondary to deconditioning postoperative resuscitation needs [2]/4DTR all UE and LE b/l Patient shows a negative Homans, Calzada's, negative Babinski's negative clonus bilaterally. negative straight leg raise bilaterally. No tensioning signs. Cranial nerves II through XII are grossly intact. There is FROM that is painless of the b/l UE and LE in all major joints no pain in joints causes some pain in back They are intact to light touch sensation in L2 to S1 nerve distribution. Patient has palpable dorsalis pedis was posterior tibial pulses. Compartments are soft and compressible. Incision is clean dry and intact Bilateral drains have around 50 to 100 cc each of serosanguineous. - Labs CBC & Chem 7: 09/09/24 01:43 09/09/24 01:43 Labs: Abnormal Lab Results - Last 24 Hours (Table) 09/01/24 09/08/24 09/08/24 Range/Units 07:22 13:05 15:25 WBC 23.2 H (3.8-10.6) k/uL RBC 3.79 L (4.30-5.90) m/uL Hgb 12.0 L (13.0-17.5) gm/dL Hct 35.2 L (39.0-53.0) % Plt Count (150-450) k/uL Neutrophils # 20.4 H (1.3-7.7) k/uL Lymphocytes # (1.0-4.8) k/uL PT (10.0-12.5) sec INR (<1.2) APTT (22.0-30.0) sec ABG pH (7.35-7.45) ABG pCO2 46 H (35-45) mmHg ABG pO2 247 H (83-108) mmHg ABG HCO3 (21-25) mmol/L ABG O2 Saturation 99.2 H (94-97) % ABG Ionized Calcium 4.3 L (4.5-5.3) mg/dL ABG Glucose 142 H (75-99) mg/dL ABG Lactic Acid 3.0 H* (0.5-1.6) mmol/L Hemoglobin 10.9 L (13.0-17.5) gm/dL Sodium (137-145) mmol/L Carbon Dioxide (22-30) mmol/L Glucose (74-99) mg/dL POC Glucose (mg/dL) (70-110) mg/dL Calcium (8.4-10.2) mg/dL Arterial Blood Glucose 142 H (75-99) mg/dL Crossmatch See Detail 09/08/24 09/08/24 09/08/24 Range/Units 15:25 15:28 16:15 WBC (3.8-10.6) k/uL RBC (4.30-5.90) m/uL Hgb (13.0-17.5) gm/dL Hct (39.0-53.0) % Plt Count (150-450) k/uL Neutrophils # (1.3-7.7) k/uL Lymphocytes # (1.0-4.8) k/uL PT 13.0 H (10.0-12.5) sec INR 1.2 H (<1.2) APTT 21.9 L (22.0-30.0) sec ABG pH 7.23 L (7.35-7.45) ABG pCO2 49 H (35-45) mmHg ABG pO2 199 H (83-108) mmHg ABG HCO3 20 L (21-25) mmol/L ABG O2 Saturation 100.0 H (94-97) % ABG Ionized Calcium (4.5-5.3) mg/dL ABG Glucose (75-99) mg/dL ABG Lactic Acid (0.5-1.6) mmol/L Hemoglobin (13.0-17.5) gm/dL Sodium 136 L (137-145) mmol/L Carbon Dioxide 19 L (22-30) mmol/L Glucose 131 H (74-99) mg/dL POC Glucose (mg/dL) (70-110) mg/dL Calcium 8.2 L (8.4-10.2) mg/dL Arterial Blood Glucose (75-99) mg/dL Crossmatch 09/08/24 09/09/24 09/09/24 Range/Units 17:04 01:43 01:43 WBC 16.7 H (3.8-10.6) k/uL RBC 3.33 L (4.30-5.90) m/uL Hgb 10.7 L (13.0-17.5) gm/dL Hct 30.6 L (39.0-53.0) % Plt Count 132 L (150-450) k/uL Neutrophils # 14.9 H (1.3-7.7) k/uL Lymphocytes # 0.9 L (1.0-4.8) k/uL PT (10.0-12.5) sec INR (<1.2) APTT (22.0-30.0) sec ABG pH (7.35-7.45) ABG pCO2 (35-45) mmHg ABG pO2 (83-108) mmHg ABG HCO3 (21-25) mmol/L ABG O2 Saturation (94-97) % ABG Ionized Calcium (4.5-5.3) mg/dL ABG Glucose (75-99) mg/dL ABG Lactic Acid (0.5-1.6) mmol/L Hemoglobin (13.0-17.5) gm/dL Sodium 134 L (137-145) mmol/L Carbon Dioxide (22-30) mmol/L Glucose 143 H (74-99) mg/dL POC Glucose (mg/dL) 131 H (70-110) mg/dL Calcium 8.0 L (8.4-10.2) mg/dL Arterial Blood Glucose (75-99) mg/dL Crossmatch Assessment and Plan Assessment: Postop day 1 T10 to pelvis decompression fusion Spinal stenosis with spondylosis and spondylolisthesis 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 -Appreciate ICU mgt, consult to Dr. Cassidy. Possible Cardio consult due to ectopy on ECG monitors. Tachy, needs more resuscitation. Push fluids and possibly blood if vitals do not respond. Replace electrolytes as needed. -Activity: Ambulate QID, OOB all meals, up and about, limit lifting bending twisting to less than 5 lbs. Use walker or cane if needed for stability. -Daily PT/OT, increase ambulation strength and balance. -[Brace when up and about, not needed in bed or chair] -Pain control: [Adequate at this time] -Meds: [reviewed] -GI ppx: senna, Miralax -DC beckman when up and about, bedside commode if needed -DVT PPX: Aspirin 81mg at 48 hours Post op -Hygiene: Shower when able. Maintain dressing clean and dry. Meticulous cleaning after BMs away from incision site -Drains: [Maintain for now. Record output] -Encourage IS 10x/hr -Dispo: [Pending]
[2024-09-09] MEDS: SODIUM CHLORIDE 0.9% 1,000 ML IV SCH (08:09)
[2024-09-09] MEDS: SENNOSIDES-DOCUSATE SODIUM 1 EACH TAB PO SCH (08:10)
[2024-09-09] MEDS: polyethylene glycoL 3350 17 GM POWD.PACK PO SCH (09:44)
[2024-09-09] MEDS: LEVOTHYROXINE 50 MCG TAB PO SCH (11:14)
[2024-09-09] MEDS: ATORVASTATIN 10 MG TAB PO SCH (11:20)
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
--- NOTE | 2024-09-09 14:28 | P.CON ---
Consult Note - . Consult date: 09/09/24 Assessment/Plan:: Patient is a 74-year-old male with past medical history of CARLOS EDUARDO on CPAP, morbid obesity, hypertension, hyperlipidemia who hypothyroidism, status post umbilical hernia repair, status post bilateral surgical treatment of carpal tunnel syndrome, severe chronic lumbar pain with bilateral lower extremity radiculopathy and right foot numbness, severe multilevel spondylosis, grade 2 spondylolisthesis L4-L5 with severe central and foraminal stenosis, who presented for elective T10 to pelvis, lateral and interbody fusion with decompression was performed on 09/08/2024, patient was transferred to ICU. Transfusion of 2 PRBC after the surgery. Postoperative blood work showing improving leukocytosis 23.3-16.7, hemoglobin dropped 12.0-10.7, thrombocytopenia 132, sodium 134, normal potassium, glucose is well-controlled. Patient is hypotensive with BP 104/60 Pertinent positives and negatives as discussed in HPI, a complete review of systems was performed and all other systems are negative. Patient seen and examined at bedside. Complaining of expected lower back pain, states that numbness in his right middle toe has resolved, denies chest pain, shortness of breath. Vital signs reviewed. obese General: nontoxic, no distress, appears at stated age Derm: warm, dry Head: atraumatic, normocephalic, symmetric Eyes: EOMI, no lid lag, anicteric sclera, pupils equal round reactive to light ENT: Nose and ears atraumatic Neck: No thyromegaly, supple Mouth: no lip lesion, mucus membranes moist Cardiovascular: S1S2 reg, no murmur, no edema Lungs: clear to auscultation bilateral, no rhonchi, no rales, no wheeze, no accessory muscle use Abdominal: soft, nontender to palpation, no guarding, no appreciable organomegaly Ext: no gross muscle atrophy, muscle strength muscle strength 5 out of 5 in all 4 extremities, no contractures. Bilateral drains have with serosanguineous. Neuro: CN II-XII grossly intact Psych: Alert, oriented, appropriate affect Assessment/Plan: severe chronic lumbar pain with bilateral lower extremity radiculopathy and right foot numbness, severe multilevel spondylosis, grade 2 spondylolisthesis L4-L5 with severe central and foraminal stenosis, who presented for elective T10 to pelvis, lateral and interbody fusion with decompression was performed on 09/08/2024 Acute blood loss anemia Thrombocytopenia Postop Hypotension -Your postop management, pain management, DVT prophylaxis -Bowel regimen ordered -PT OT -Monitor CBC daily -Agree with IV fluids, continue NS -Hold home lisinopril hydrochlorothiazide 20-12.5 -brock-synephrine off since 09/09 AM -clinically stable to transfer from ICU per academic support director CARLOS EDUARDO on CPAP: Continue CPAP morbid obesity hypertension: Hold home BP meds hyperlipidemia:, On home lovastatin 20 continue hypothyroidism continue levothyroxine 50 mcg
[2024-09-09] MEDS: methocarbamoL 750 MG TAB PO PRN (23:01)
[2024-09-10] MEDS: ASPIRIN 81 MG PO SCH (08:38)
[2024-09-10] MEDS: oxyCODONE-APAP 10-325MG 1 EACH TAB PO PRN (08:39)
[2024-09-10 08:59] LABS: Basophils # (A) 0.04 X 10*3/uL (0.00-0.10); Basophils % (A) 0.3 %; Eosinophils # (A) 0.01 X 10*3/uL (0.04-0.35); Eosinophils % (A) 0.1 %; HGB 8.3 g/dL (13.0-17.0); Lymphocytes # (A) 1.09 X 10*3/uL (0.90-5.00); Lymphocytes % (A) 7.3 %; MCH 30.7 pg (27.0-32.0); MCHC 33.2 g/dL (32.0-37.0); MCV 92.6 FL (80.0-97.0); Mean Platelet Volume 10.6 FL (9.5-12.2); Monocytes # (A) 1.27 X 10*3/uL (0.20-1.00); Monocytes % (A) 8.5 %; NRBC Per 100 WBC 0 X 10*3/uL (0.00-0.01); Neutrophils % (A) 83.3 %; Platelet Count 112 X 10*3/uL (140-440); RDW 13.4 % (11.5-14.5); WBC 14.88 X 10*3/uL (4.50-10.00)
--- NOTE | 2024-09-10 09:21 | P.PN ---
Subjective Progress Note Date: 09/10/24 Principal diagnosis: 1.L1-S1 spondylosis with stenosis 2.L4-5 GRADE II SPONDYLOLISTHESIS, UNSTABLE 3. NEUROGENIC CLAUDICATION 4. LE WEAKNESS 5. LE RADICULOPATHY 6. LOW BACK PAIN 7. COMPLEX MEDICAL PATIENT Patient seen and examined this morning on 4S. Patient was transferred from ICU last night. He is resting comfortably in bed. He does state that he has increased pain with activity. Informed patient that we need to utilize oral pain medications to enhance longer pain management. Educated patient on the use of ice packs as well. Patient verbalizes understanding. Encourage patient to work with physical therapy today and to be up in chair for meals as tolerated. Surgical incision to the thoracolumbar spine, dressing is clean dry and intact with x 2 Hemovacs present. Drains will remain for today with possible discontinuation tomorrow pending output. Patient continues to report improvement of his lower extremity weakness since the procedure. Encouraged use of incentive spirometer at least 10 times per hour while awake. Hemoglobin has dropped from yesterday 10.7 to 8.3 today. Hemoglobin level will be drawn later today for further evaluation. Objective - Vital Signs Vital signs: Vital Signs Temp 98.4 F 09/10/24 07:18 Pulse 104 H 09/10/24 07:18 Resp 18 09/10/24 07:18 BP 117/67 09/10/24 07:18 Pulse Ox 91 L 09/10/24 07:18 FiO2 40 09/08/24 20:34 Intake & Output 09/09/24 09/10/24 09/10/24 18:59 06:59 18:59 Intake Total 355 360 Output Total 1160 990 Balance -805 -630 Intake: IV 355 Lactated Ringers 500 ml @ 40 20 mls/hr IV .Q24H MANUEL Rx#:[id number] Pressure Bag 15 Sodium Chloride 0.9% 1, 300 000 ml @ 100 mls/hr IV . Q10H MANUEL Rx#:[id number] Oral 360 Output: Drainage 465 240 Left Lower Back 375 100 Right Lower Posterior 90 140 Back Urine 695 750 Other: Voiding Method Indwelling Catheter Indwelling Catheter ABP, PAP, CO, CI - Last Documented Arterial Blood Pressure 101/47 - Exam Physical Examination General: The patient is awake and alert, in no acute distress Skin: Skin is warm and dry with no obvious rashes or lesions. Surgical incision to the thoracolumbar spine, dressing is clean dry and intact with x 2 Hemovacs present and patent. Eye: Pupils are equal, round and reactive to light, extra-ocular movements are intact; there is normal conjunctiva bilaterally. Neck: The neck is supple, there is no tenderness and ROM intact. Cardiovascular: There is a regular rate and rhythm. No murmur, rub or gallop is appreciated. Respiratory: Respirations are non-labored, breath sounds are equal. Gastrointestinal: Soft, non-distended, non-tender abdomen. Back: There is no tenderness to palpation in the midline, paralumbar, parathoracic or buttocks region. There is no obvious deformity . Musculoskeletal: ROM limited secondary to pain and stiffness from surgical procedure. Right: Shoulder abduction 5/5, elbow flexors 5/5, wrist dorsiflexors 5/5. finger abductor 5/5, rn vascular 5/5, hip flexor 4/5, knee flexor 4/5, ankle dorsiflexor 4/5, ankle plantarflexion 4/5 and extensor hallucis 4/5. Left: Shoulder abduction 5/5, elbow flexors 5/5, wrist dorsiflexors 5/5. finger abductor 5/5, rn vascular 5/5, hip flexor 4/5, knee flexor 4/5, ankle dorsiflexor 4/5, ankle plantarflexion 4/5 and extensor halluci s 4/5. Neurological: CN 2-12 intact. There are no obvious motor or sensory deficits. Movement and coordination equal and intact. Sensory exam to light touch intact C5-T1 and intact from L2-S1. Reflexes 2/4 in bilateral upper and lower extremities. Negative Hoffmans, babinski, and clonus signs. Psychiatric: Cooperative, appropriate mood & affect, normal judgment. - Labs CBC & Chem 7: 09/10/24 03:56 09/09/24 01:43 Labs: Abnormal Lab Results - Last 24 Hours (Table) 09/01/24 Range/Units 07:22 Crossmatch See Detail Assessment and Plan Assessment: Postop day 2: [id number] decompression and fusion Plan: -Appreciate cancer program consultant and team management. -Activity: Ambulate QID, OOB all meals, up and about, limit lifting bending twisting to less than 5 lbs. Use walker or cane if needed for stability. -Daily PT/OT, increase ambulation strength and balance. -Brace when up and about, not needed in bed or chair -Pain control: Adequate at this time -Meds: reviewed -GI ppx: senna, Miralax -SYMONE beckman today. -DVT PPX: Aspirin 81mg daily -Hygiene: Maintain incision clean and dry. May change dressing as needed, please document in notes if performed. Meticulous cleaning after BMs away from the incision site -Drains: Maintain for now. Continue to monitor and record output q shift. -Encourage IS 10x/hr -Dispo: Anticipate discharge home with homecare in the next 48-72hrs. *I reviewed and discussed this case with my attending Dr. Ly, whom has reviewed this chart and films and is in agreement with assessment and plan of care as outlined above. I have personally seen and examined the patient, performed the documentation and the assessment and plan as written. Number of minutes spent on the visit: 20m.
--- NOTE | 2024-09-10 14:19 | P.PN ---
Subjective Progress Note Date: 09/10/24 Principal diagnosis: ICU management. Pulmonary consult dated September 09, 2024. 74-year-old male postop day #1, status post T10 to pelvic decompression and fusion. The patient had some instability in the post anesthesia care unit, characterized by respiratory difficulty, and hypotension. The patient arrived to the intensive care unit yesterday, on Miguel Angel-Synephrine for blood pressure support, and on BiPAP, for respiratory support. We were asked to see the patient for ICU management. Today, he is seen in room 262. The patient is currently on 2 L of oxygen. He is getting saline at 100 cc an hour. He appears to be relatively stable this morning. He has no specific complaints. Current laboratory data includes a white count of 16.7, hemoglobin 10.7, hematocrit 30.6, and platelet count of 132,000. PT 13, INR 1.2, and PTT is 21.9. Blood gases from yesterday show pO2 of 199, pCO2 49, pH is 7.23. Apparently these blood gases were done on 44% oxygen. Sodium 134, potassium 4, chlorides 102, CO2 24, BUN 16, creatinine 0.83. Glucose is 143. Calcium is 8. Magnesium 1.8. Progress note dated September 10, 2024. 74-year-old gentleman who is seen today in room 452. The patient is resting comfortably. He is sitting in the chair next to the hospital bed. He is on room air. He is getting saline at 100 cc an hour. He has no specific complaints. The patient is postoperative day #2, status post T10 to pelvis decompression and fusion. Initially when he came back to the intensive care unit, he was on BiPAP, and receiving Miguel Angel-Synephrine for blood pressure support. Current labs include a white count 14.88, hemoglobin 8.3, hematocrit 25, and a platelet count of 112,000. No additional labs are noted. Objective - Vital Signs Vital signs: Vital Signs Temp 98.4 F 09/10/24 07:18 Pulse 104 H 09/10/24 08:35 Resp 18 09/10/24 07:18 BP 117/67 09/10/24 07:18 Pulse Ox 91 L 09/10/24 07:18 FiO2 40 09/08/24 20:34 Intake & Output 09/09/24 09/10/24 09/10/24 18:59 06:59 18:59 Intake Total 355 360 Output Total 1160 990 Balance -805 -119 Intake: IV 355 Lactated Ringers 500 ml @ 40 20 mls/hr IV .Q24H MANUEL Rx#:[id number] Pressure Bag 15 Sodium Chloride 0.9% 1, 300 000 ml @ 100 mls/hr IV . Q10H MANUEL Rx#:[id number] Oral 360 Output: Drainage 465 240 Left Lower Back 375 100 Right Lower Posterior 90 140 Back Urine 695 750 Other: Voiding Method Indwelling Catheter Indwelling Catheter Indwelling Catheter ABP, PAP, CO, CI - Last Documented Arterial Blood Pressure 101/47 - Exam No acute distress, oriented 3. HEENT examination is grossly unremarkable. Mucous membranes are moist. No oral lesions. Neck supple. Full range of motion. No adenopathy thyromegaly or neck vein distention. Cardiovascular examination reveals regular rhythm rate. S1-S2 normal. No S3 or S4. No discernible murmur noted. Lungs reveal clear breath sounds. Breath sounds are equal bilaterally. No adventitious lung sounds including wheezes rhonchi or crackles. Abdomen soft bowel sounds are heard. No masses or tenderness. Extremities are intact. No cyanosis clubbing or edema. Skin is without rash or lesion. Neurologic examination is brief but nonfocal. - Labs CBC & Chem 7: 09/10/24 03:56 09/09/24 01:43 Labs: Abnormal Lab Results - Last 24 Hours (Table) 09/01/24 09/10/24 Range/Units 07:22 03:56 WBC 14.88 H (4.50-10.00) X 10*3/uL RBC 2.70 L (4.40-5.60) X 10*6/uL Hgb 8.3 L (13.0-17.0) g/dL Hct 25.0 L (39.6-50.0) % Plt Count 112 L (140-440) X 10*3/uL Immature Gran # 0.07 H (0.00-0.04) X 10*3/uL Neutrophils # 12.40 H (1.80-7.70) X 10*3/uL Monocytes # 1.27 H (0.20-1.00) X 10*3/uL Eosinophils # 0.01 L (0.04-0.35) X 10*3/uL Crossmatch See Detail Assessment and Plan Assessment: Postop day #2, S/P T10 to pelvic decompression and fusion. Postoperative hypotension, and respiratory difficulty, requiring Miguel Angel-Synephrine, and BiPAP support. History of chronic back pain. History of hypertension. History of hyperlipidemia. History of hypothyroidism. Plan: Plan dated September 09, 2024. The patient is seen today in the intensive care unit, room 262. The patient had a procedure, including a T10 to pelvis decompression and fusion, and is currently postoperative day #1. The patient has some instability in the postanesthesia care unit, and required Miguel Angel-Synephrine for blood pressure support, and BiPAP, for respiratory support. The patient is currently resting comfortably in the ICU. He is on 2 L of oxygen. He is getting saline at 100 cc an hour. Labs, x-rays, and medications are reviewed. Clinically the patient is stable could be transferred out of the intensive care unit. No additional recommendations are made. We will continue to follow. Plan dated September 10, 2024. The patient is seen today in room 452. The patient is sitting in a chair next t o the hospital bed. He is on room air. He is getting saline at 100 cc an hour. Current labs are reviewed. Everything appears to be in order. The patient is not having any respiratory issues including shortness of breath, cough, wheezing, chest tightness, or phlegm production. We will continue to follow make recommendations along the way. He was initially unstable which is why he came back to the intensive care unit. Currently, he is doing very well, with stable vital signs. He is awake and alert. Prognosis is thought to be good. Time with Patient: Less than 30
[2024-09-10] MEDS: HYDROmorphone 0.5 MG/0.5 ML SYRINGE IVP PRN (14:43)
--- NOTE | 2024-09-10 14:46 | P.PN ---
Subjective Progress Note Date: 09/10/24 Hospital Course: Patient is a 74-year-old male with past medical history of CARLOS EDUARDO on CPAP, morbid obesity, hypertension, hyperlipidemia who hypothyroidism, status post umbilical hernia repair, status post bilateral surgical treatment of carpal tunnel syndrome, severe chronic lumbar pain with bilateral lower extremity radiculopathy and right foot numbness, severe multilevel spondylosis, grade 2 spondylolisthesis L4-L5 with severe central and foraminal stenosis, who presented for elective T10 to pelvis, lateral and interbody fusion with decompression was performed on 09/08/2024, patient was transferred to ICU due to hypotension. Transfusion of 2 PRBC after the surgery. Patient was transferred from ICU on 09/09 with stable vitals, no respiratory distress, pulmonology following along Subjective: Seen and examined at bedside, complains of postop pain, fairly controlled now Pertinent positives and negatives as discussed above, a complete review of systems was performed and all other systems are negative. Vitals Signs Reviewed. Vital signs reviewed. obese General: nontoxic, no distress, appears at stated age Derm: warm, dry Head: atraumatic, normocephalic, symmetric Eyes: EOMI, no lid lag, anicteric sclera, pupils equal round reactive to light ENT: Nose and ears atraumatic Neck: No thyromegaly, supple Mouth: no lip lesion, mucus membranes moist Cardiovascular: S1S2 reg, no murmur, no edema Lungs: clear to auscultation bilateral, no rhonchi, no rales, no wheeze, no acc essory muscle use Abdominal: soft, nontender to palpation, no guarding, no appreciable organomegaly Ext: no gross muscle atrophy, muscle strength muscle strength 5 out of 5 in all 4 extremities, no contractures. Bilateral drains have with serosanguineous. Neuro: CN II-XII grossly intact Psych: Alert, oriented, appropriate affect Assessment and Plan: [ severe chronic lumbar pain with bilateral lower extremity radiculopathy and right foot numbness, severe multilevel spondylosis, grade 2 spondylolisthesis L4-L5 with severe central and foraminal stenosis, who presented for elective T10 to pelvis, lateral and interbody fusion with decompression was performed on 09/08/2024 Acute blood loss anemia Thrombocytopenia Postop Hypotension, resolved -Your postop management, pain management, DVT prophylaxis -Bowel regimen ordered -PT OT -Monitor CBC daily, hemoglobin continues to drop, repeat CBC in a.m. -Hold home lisinopril hydrochlorothiazide 20-12.5 -brock-synephrine off since 09/09 AM -clinically stable to transfer from ICU per performance architect -Martinez catheter in place, recommend removal as soon as possible should patient be able to use urinal CARLOS EDUARDO on CPAP: Continue CPAP morbid obesity hypertension: Hold home BP meds hyperlipidemia:, On home lovastatin 20 continue hypothyroidism continue levothyroxine 50 mcg Objective - Vital Signs Vital signs: Vital Signs Temp 98.4 F 09/10/24 07:18 Pulse 104 H 09/10/24 08:35 Resp 18 09/10/24 07:18 BP 117/67 09/10/24 07:18 Pulse Ox 91 L 09/10/24 07:18 FiO2 40 09/08/24 20:34 Intake & Output 09/09/24 09/10/24 09/10/24 18:59 06:59 18:59 Intake Total 355 360 Output Total 1160 990 Balance -805 630 Intake: IV 355 Lactated Ringers 500 ml @ 40 20 mls/hr IV .Q24H MANUEL Rx#:[id number] Pressure Bag 15 Sodium Chloride 0.9% 1, 300 000 ml @ 100 mls/hr IV . Q10H MANUEL Rx#:[id number] Oral 360 Output: Drainage 465 240 Left Lower Back 375 100 Right Lower Posterior 90 140 Back Urine 695 750 Other: Voiding Method Indwelling Catheter Indwelling Catheter Indwelling Catheter ABP, PAP, CO, CI - Last Documented Arterial Blood Pressure 101/47 - Labs CBC & Chem 7: 09/10/24 03:56 09/09/24 01:43 Labs: Abnormal Lab Results - Last 24 Hours (Table) 09/01/24 09/10/24 Range/Units 07:22 03:56 WBC 14.88 H (4.50-10.00) X 10*3/uL RBC 2.70 L (4.40-5.60) X 10*6/uL Hgb 8.3 L (13.0-17.0) g/dL Hct 25.0 L (39.6-50.0) % Plt Count 112 L (140-440) X 10*3/uL Immature Gran # 0.07 H (0.00-0.04) X 10*3/uL Neutrophils # 12.40 H (1.80-7.70) X 10*3/uL Monocytes # 1.27 H (0.20-1.00) X 10*3/uL Eosinophils # 0.01 L (0.04-0.35) X 10*3/uL Crossmatch See Detail
[2024-09-10 17:40] LABS: HCT 24.4 % (39.0-53.0); MCH 32.8 pg (25.0-35.0); MCHC 35.3 g/dL (31.0-37.0); MCV 92.8 fL (80.0-100.0); Mean Platelet Volume 7.6; Platelet Count 120 k/uL (150-450); RBC 2.63 m/uL (4.30-5.90); RDW 13.4 % (11.5-15.5); WBC 12.7 k/uL (3.8-10.6)
[2024-09-10 17:44] LABS: HGB 8.6 gm/dL (13.0-17.5)
[2024-09-11 07:46] LABS: HCT 27.9 % (39.0-53.0); HGB 9.5 gm/dL (13.0-17.5); MCH 31.6 pg (25.0-35.0); MCHC 34.1 g/dL (31.0-37.0); MCV 92.6 fL (80.0-100.0); Mean Platelet Volume 9.4; Platelet Count 133 k/uL (150-450); RBC 3.01 m/uL (4.30-5.90); RDW 13.8 % (11.5-15.5)
--- NOTE | 2024-09-11 12:06 | P.PN ---
Subjective Progress Note Date: 09/11/24 Hospital Course: Patient is a 74-year-old male with past medical history of CARLOS EDUARDO on CPAP, morbid obesity, hypertension, hyperlipidemia who hypothyroidism, status post umbilical hernia repair, status post bilateral surgical treatment of carpal tunnel syndrome, severe chronic lumbar pain with bilateral lower extremity radiculopathy and right foot numbness, severe multilevel spondylosis, grade 2 spondylolisthesis L4-L5 with severe central and foraminal stenosis, who presented for elective T10 to pelvis, lateral and interbody fusion with decompression was performed on 09/08/2024, patient was transferred to ICU due to hypotension. Transfusion of 2 PRBC after the surgery. Patient was transferred from ICU on 09/09 with stable vitals, no respiratory distress, pulmonology following along Due to ongoing postop blood loss anemia, received 1 more unit of PRBC on 09/10/2024 Subjective: Medical assessment: Patient presents. Patient continues to complain lower back pain, was able to ambulate from bed to recliner today with assistance Pertinent positives and negatives as discussed above, a complete review of systems was performed and all other systems are negative. Vitals Signs Reviewed. General: nontoxic, no distress, appears at stated age, obese Derm: warm, dry Head: atraumatic, normocephalic, symmetric Eyes: EOMI, no lid lag, anicteric sclera, pupils equal round reactive to light ENT: Nose and ears atraumatic Neck: No thyromegaly, supple Mouth: no lip lesion, mucus membranes moist Cardiovascular: S1S2 reg, no murmur, no edema Lungs: clear to auscultation bilateral, no rhonchi, no rales, no wheeze, no accessory muscle use Abdominal: soft, nontender to palpation, no guarding, no appreciable organomegaly Ext: no gross muscle atrophy, muscle strength muscle strength 5 out of 5 in all 4 extremities, no contractures. Bilateral drains have with serosanguineous. Data Reviewed Today: Pertinent Labs: Hemoglobin up to 9.5, leukocytosis improving 12.0 today, platelet count 133 Assessment and Plan: severe chronic lumbar pain with bilateral lower extremity radiculopathy and right foot numbness, severe multilevel spondylosis, grade 2 spondylolisthesis L4-L5 with severe central and foraminal stenosis, who presented for elective T10 to pelvis, lateral and interbody fusion with decompression was performed on 09/08/2024 Acute blood loss anemia Thrombocytopenia Leukocytosis, likely reactive, improving Postop Hypotension, resolved -Your postop management, pain management, DVT prophylaxis -Bowel regimen ordered -PT OT -Monitor CBC daily, hemoglobin improved after 1 unit of PRBC 05/12 -Hold home lisinopril hydrochlorothiazide 20-12.5 -brock-synephrine off since 09/09 AM -Clinically stable for discharge from IM standpoint CARLOS EDUARDO on CPAP: Continue CPAP morbid obesity: Recommend weight loss hypertension: Hold home BP meds hyperlipidemia:, On home lovastatin 20 continue hypothyroidism continue levothyroxine 50 mcg Objective - Vital Signs Vital signs: Vital Signs Temp 98.0 F 09/11/24 06:52 Pulse 87 09/11/24 06:52 Resp 18 09/11/24 06:52 BP 122/70 09/11/24 06:52 Pulse Ox 97 09/11/24 06:52 FiO2 40 09/08/24 20:34 Intake & Output 09/10/24 09/11/24 09/11/24 18:59 06:59 18:59 Intake Total 850 Output Total 1175 2600 1310 Balance -1175 1750 -1310 Intake: Oral 540 Blood Product 310 Rc As-1 Unit 310 [id number] Output: Drainage 500 Left Lower Back 320 Right Lower Posterior 180 Back Urine 1175 2100 1310 Uretheral (Martinez) 1310 Other: Voiding Method Indwelling Catheter Indwelling Catheter Indwelling Catheter ABP, PAP, CO, CI - Last Documented Arterial Blood Pressure 101/47 - Labs CBC & Chem 7: 09/11/24 07:32 09/09/24 01:43 Labs: Abnormal Lab Results - Last 24 Hours (Table) 09/01/24 09/10/24 09/10/24 Range/Units 07:22 17:16 17:16 WBC 12.7 H (3.8-10.6) k/uL RBC 2.63 L (4.30-5.90) m/uL Hgb 8.6 L D (13.0-17.5) gm/dL Hct 24.4 L (39.0-53.0) % Plt Count 120 L (150-450) k/uL Crossmatch See Detail See Detail 09/11/24 Range/Units 07:32 WBC 12.0 H (3.8-10.6) k/uL RBC 3.01 L (4.30-5.90) m/uL Hgb 9.5 L (13.0-17.5) gm/dL Hct 27.9 L (39.0-53.0) % Plt Count 133 L (150-450) k/uL Crossmatch
--- NOTE | 2024-09-11 12:14 | P.PN ---
Subjective Progress Note Date: 09/11/24 Principal diagnosis: Status post [id number] posterior lateral decompression and fusion Patient is evaluated at bedside today, he is resting in his hospital bed. Pain seems controlled at this time, he notes most discomfort when he initiates movement, this to be getting out of bed or standing. Urinary catheter was removed earlier this morning. Hemoglobin remained stable after receiving the third packed unit of RBCs. Patient has back brace at bedside today. Patient is continue to work with therapy, he has been utilizing the walker. Patient is passing some gas, no bowel movement at this time. Discussed discharge options, patient does have clearance for [facility] subacute rehab when stable. Denies headaches, lightheadedness, chest pain or shortness of breath Objective - Vital Signs Vital signs: Vital Signs Temp 98.0 F 09/11/24 06:52 Pulse 87 09/11/24 06:52 Resp 18 09/11/24 06:52 BP 122/70 09/11/24 06:52 Pulse Ox 97 09/11/24 06:52 FiO2 40 09/08/24 20:34 Intake & Output 09/10/24 09/11/24 09/11/24 18:59 06:59 18:59 Intake Total 850 Output Total 1175 2600 1310 Balance -1175 -1750 -1310 Intake: Oral 540 Blood Product 310 Rc As-1 Unit 310 [id number] Output: Drainage 500 Left Lower Back 320 Right Lower Posterior 180 Back Urine 1175 2100 1310 Uretheral (Martinez) 1310 Other: Voiding Method Indwelling Catheter Indwelling Catheter Indwelling Catheter ABP, PAP, CO, CI - Last Documented Arterial Blood Pressure 101/47 - Exam Gen: AOx3, NAD VSS stable at this time Integument: Surgical dressing was removed today at bedside, tian are all in good position condition, drains are in good position and condition Palpation: Tenderness with palpation throughout the lower thoracic and lumbar spine ROM: Full range of motion in all major muscle groups of the bilateral upper and lower extremities, no focal deficits appreciated Sensory Exam: Senory exam to light touch is intact C5-T1 Senosry exam to light touch is intact L2-S1 Motor: 5/5 strength appreciated bilateral upper extremities with shoulder elevation, shoulder abduction, elbow extension, elbow flexion, wrist extension, wrist flexion 4/5 strength appreciated bilateral lower extremities with hip flexion, knee extension, knee flexion, plantarflexion, dorsiflexion, EHL, FHL Reflexes: 2/4 in all UE and LE Negative Ivy's bilaterally Negative Babinski bilaterally Negative clonus bilaterally - Labs CBC & Chem 7: 09/11/24 07:32 09/09/24 01:43 Labs: Abnormal Lab Results - Last 24 Hours (Table) 09/01/24 09/10/24 09/10/24 Range/Units 07:22 17:16 17:16 WBC 12.7 H (3.8-10.6) k/uL RBC 2.63 L (4.30-5.90) m/uL Hgb 8.6 L D (13.0-17.5) gm/dL Hct 24.4 L (39.0-53.0) % Plt Count 120 L (150-450) k/uL Crossmatch See Detail See Detail 09/11/24 Range/Units 07:32 WBC 12.0 H (3.8-10.6) k/uL RBC 3.01 L (4.30-5.90) m/uL Hgb 9.5 L (13.0-17.5) gm/dL Hct 27.9 L (39.0-53.0) % Plt Count 133 L (150-450) k/uL Crossmatch Assessment and Plan Assessment: Postoperative day #3 status post [id number] posterior lateral decompression and fusion Acute blood loss anemia, expected surgical outcome, stable Other medical comorbidities Plan: Pain control, continue with current medication. Discussed with patient trying to limit the IV Dilaudid at this time GI DVT prophylaxis, continue aspirin daily. Patient has multiple stool softeners that are scheduled Wound care, new dressing was placed today at bedside. Monitor drain output, pending output hopeful did removal in the next 24-48 hours Encourage incentive spirometer Continue PT/OT, weight-bear as tolerated with walker. No bending, lifting or twisting. Brace when walking longer distances Medical recommendations appreciated Discharge planning: Monitoring for urinary retention at this time, hopeful discharge to subacute rehab in the next 4-48 hours Time with Patient: Less than 30
--- NOTE | 2024-09-11 13:44 | P.PN ---
Subjective Progress Note Date: 09/11/24 74-year-old male postop day #1, status post T10 to pelvic decompression and fusion. The patient had some instability in the post anesthesia care unit, characterized by respiratory difficulty, and hypotension. The patient arrived to the intensive care unit yesterday, on Miguel Angel-Synephrine for blood pressure support, and on BiPAP, for respiratory support. We were asked to see the patient for ICU management. Today, he is seen in room 262. The patient is currently on 2 L of oxygen. He is getting saline at 100 cc an hour. He appears to be relatively stable this morning. He has no specific complaints. Current laboratory data includes a white count of 16.7, hemoglobin 10.7, hematocrit 30.6, and platelet count of 132,000. PT 13, INR 1.2, and PTT is 21.9. Blood gases from yesterday show pO2 of 199, pCO2 49, pH is 7.23. Apparently these blood gases were done on 44% oxygen. Sodium 134, potassium 4, chlorides 102, CO2 24, BUN 16, creatinine 0.83. Glucose is 143. Calcium is 8. Magnesium 1.8. Progress note dated September 10, 2024. 74-year-old gentleman who is seen today in room 452. The patient is resting comfortably. He is sitting in the chair next to the hospital bed. He is on room air. He is getting saline at 100 cc an hour. He has no specific complaints. The patient is postoperative day #2, status post T10 to pelvis decompression and fusion. Initially when he came back to the intensive care unit, he was on BiPAP, and receiving Miguel Angel-Synephrine for blood pressure support. Current labs include a white count 14.88, hemoglobin 8.3, hematocrit 25, and a platelet count of 112,000. No additional labs are noted. The patient is seen today September 11, 2024 in follow-up on the regular medical floor. He is currently sitting up in bed. Awake and alert in no acute distress. Maintaining O2 saturations in the 90s on 2 L/min per nasal cannula. 0.9 normal staying at 20 mL/h. White count 12.0. Hemoglobin 9.5. Platelets 133. His pain is well-managed. He is working with physical therapy. Objective - Vital Signs Vital signs: Vital Signs Temp 98.0 F 09/11/24 06:52 Pulse 87 09/11/24 06:52 Resp 18 09/11/24 06:52 BP 122/70 09/11/24 06:52 Pulse Ox 97 09/11/24 06:52 FiO2 40 09/08/24 20:34 Intake & Output 09/10/24 09/11/24 09/11/24 18:59 06:59 18:59 Intake Total 850 Output Total 1175 2600 1310 Balance -1175 -1750 -1310 Intake: Oral 540 Blood Product 310 Rc As-1 Unit 310 [id number] Output: Drainage 500 Left Lower Back 320 Right Lower Posterior 180 Back Urine 1175 2100 1310 Uretheral (Martinez) 1310 Other: Voiding Method Indwelling Catheter Indwelling Catheter Indwelling Catheter ABP, PAP, CO, CI - Last Documented Arterial Blood Pressure 101/47 - Exam General appearance: A pleasant 74-year-old male patient, resting in bed, on 2 L nasal cannula, no acute distress, oriented 3. HEENT examination is grossly unremarkable. Mucous membranes are moist. No oral lesions. Neck supple. Full range of motion. No adenopathy thyromegaly or neck vein dist ention. Cardiovascular examination reveals regular rhythm rate. S1-S2 normal. No S3 or S4. No discernible murmur noted. Lungs reveal clear breath sounds. Breath sounds are equal bilaterally. No a dventitious lung sounds including wheezes rhonchi or crackles. Abdomen soft bowel sounds are heard. No masses or tenderness. Extremities are intact. No cyanosis clubbing or edema. Skin is without rash or lesion. Neurologic examination is brief but nonfocal. - Labs CBC & Chem 7: 09/11/24 07:32 09/09/24 01:43 Labs: Abnormal Lab Results - Last 24 Hours (Table) 09/01/24 09/10/24 09/10/24 Range/Units 07:22 17:16 17:16 WBC 12.7 H (3.8-10.6) k/uL RBC 2.63 L (4.30-5.90) m/uL Hgb 8.6 L D (13.0-17.5) gm/dL Hct 24.4 L (39.0-53.0) % Plt Count 120 L (150-450) k/uL Crossmatch See Detail See Detail 09/11/24 Range/Units 07:32 WBC 12.0 H (3.8-10.6) k/uL RBC 3.01 L (4.30-5.90) m/uL Hgb 9.5 L (13.0-17.5) gm/dL Hct 27.9 L (39.0-53.0) % Plt Count 133 L (150-450) k/uL Crossmatch Assessment and Plan Assessment: Postop day #3, S/P T10 to pelvic decompression and fusion. Postoperative hypotension, and respiratory difficulty, requiring Miguel Angel-Synephrine, and BiPAP support. History of chronic back pain. History of hypertension. History of hyperlipidemia. History of hypothyroidism. Plan: The patient was seen and evaluated Labs and medications reviewed Titrate down/off the FiO2 as tolerated Increase his activity as tolerated Plan is for subacute rehab at [facility] at discharge I have personally seen and examined the patient, performed the documentation and the assessment and plan as written. Number of minutes spent on the visit: 10 Dictation was produced using [employer] dictation software. Please excuse any grammatical, word or spelling errors.
[2024-09-12 08:38] VITALS: RESP 18
--- NOTE | 2024-09-12 11:55 | P.PN ---
Subjective Progress Note Date: 09/12/24 Hospital Course: Patient is a 74-year-old male with past medical history of CARLOS EDUARDO on CPAP, morbid obesity, hypertension, hyperlipidemia who hypothyroidism, status post umbilical hernia repair, status post bilateral surgical treatment of carpal tunnel syndrome, severe chronic lumbar pain with bilateral lower extremity radiculopathy and right foot numbness, severe multilevel spondylosis, grade 2 spondylolisthesis L4-L5 with severe central and foraminal stenosis, who presented for elective T10 to pelvis, lateral and interbody fusion with decompression was performed on 09/08/2024, patient was transferred to ICU due to hypotension. Transfusion of 2 PRBC after the surgery. Patient was transferred from ICU on 09/09 with stable vitals, no respiratory distress, pulmonology following along Due to ongoing postop blood loss anemia, received 1 more unit of PRBC on 09/10/2024 Subjective: Patient was seen and examined today, sitting in the recliner, states that he is lower back pain is tolerable, able to use bathroom Pertinent positives and negatives as discussed above, a complete review of sy stems was performed and all other systems are negative. Vitals Signs Reviewed. General: nontoxic, no distress, appears at stated age, obese Derm: warm, dry Head: atraumatic, normocephalic, symmetric Eyes: EOMI, no lid lag, anicteric sclera, pupils equal round reactive to light ENT: Nose and ears atraumatic Neck: No thyromegaly, supple Mouth: no lip lesion, mucus membranes moist Cardiovascular: S1S2 reg, no murmur, no edema Lungs: clear to auscultation bilateral, no rhonchi, no rales, no wheeze, no accessory muscle use Abdominal: soft, nontender to palpation, no guarding, no appreciable o rganomegaly Ext: no gross muscle atrophy, muscle strength muscle strength 5 out of 5 in all 4 extremities, no contractures. Bilateral drains have with serosanguineous. Data Reviewed Today: Data Reviewed Today: No new blood work Assessment and Plan: severe chronic lumbar pain with bilateral lower extremity radiculopathy and right foot numbness, severe multilevel spondylosis, grade 2 spondylolisthesis L4-L5 with severe central and foraminal stenosis, who presented for elective T10 to pelvis, lateral and interbody fusion with decompression was performed on 09/08/2024 Acute blood loss anemia Thrombocytopenia Leukocytosis, likely reactive, improving Postop Hypotension, resolved -Your postop management, pain management, DVT prophylaxis -Bowel regimen ordered -PT OT -Resume home lisinopril hydrochlorothiazide 20-12.5 -brock-synephrine off since 09/09 AM -Clinically stable for discharge from IM standpoint CARLOS EDUARDO on CPAP: Continue CPAP morbid obesity: Recommend weight loss hypertension: Hold home BP meds hyperlipidemia:, On home lovastatin 20 continue hypothyroidism continue levothyroxine 50 mcg Objective - Vital Signs Vital signs: Vital Signs Temp 97.9 F 09/12/24 07:29 Pulse 99 09/12/24 07:29 Resp 18 09/12/24 07:29 BP 121/69 09/12/24 07:29 Pulse Ox 97 09/12/24 08:03 FiO2 40 09/08/24 20:34 Intake & Output 09/11/24 09/12/24 09/12/24 18:59 06:59 18:59 Intake Total 140 300 Output Total 1450 140 Balance -1450 0 300 Intake: IV 140 Sodium Chloride 0.9% 1, 140 000 ml @ 100 mls/hr IV . Q10H MANUEL Rx#:[id number] Oral 300 Output: Drainage 140 140 Left Lower Back 40 100 Right Lower Posterior 100 40 Back Urine 1310 Uretheral (Martinez) 1310 Other: Voiding Method Indwelling Catheter Indwelling Catheter # Voids 3 3 ABP, PAP, CO, CI - Last Documented Arterial Blood Pressure 101/47 - Labs CBC & Chem 7: 09/11/24 07:32 09/09/24 01:43
--- NOTE | 2024-09-12 12:38 | P.PN ---
Subjective Progress Note Date: 09/12/24 Principal diagnosis: Status post [id number] posterior lateral decompression and fusion Patient is evaluated at bedside today, he is resting in his hospital chair. Patient did ambulate down the gallagher today with the assistance of physical therapy, has been utilizing his brace. Labs and vitals remained stable at this time. Pain is well-controlled currently. Authorization has been obtained for subacute rehab. Denies headaches, lightheadedness, chest pain or shortness of breath Objective - Vital Signs Vital signs: Vital Signs Temp 97.9 F 09/12/24 07:29 Pulse 99 09/12/24 07:29 Resp 18 09/12/24 07:29 BP 121/69 09/12/24 07:29 Pulse Ox 97 09/12/24 08:03 FiO2 40 09/08/24 20:34 Intake & Output 09/11/24 09/12/24 09/12/24 18:59 06:59 18:59 Intake Total 140 300 Output Total 1450 140 Balance -1450 0 300 Intake: IV 140 Sodium Chloride 0.9% 1, 140 000 ml @ 100 mls/hr IV . Q10H MANUEL Rx#:[id number] Oral 300 Output: Drainage 140 140 Left Lower Back 40 100 Right Lower Posterior 100 40 Back Urine 1310 Uretheral (Martinez) 1310 Other: Voiding Method Indwelling Catheter Indwelling Catheter # Voids 3 3 ABP, PAP, CO, CI - Last Documented Arterial Blood Pressure 101/47 - Exam Gen: AOx3, NAD VSS stable at this time Integument: Postop dressing is in good position condition, Hemovac drains have slowed down significantly. Palpation: Tenderness with palpation throughout the lower thoracic and lumbar spine ROM: Full range of motion in all major muscle groups of the bilateral upper and lower extremities, no focal deficits appreciated Sensory Exam: Senory exam to light touch is intact C5-T1 Senosry exam to light touch is intact L2-S1 Motor: 5/5 strength appreciated bilateral upper extremities with shoulder elevation, shoulder abduction, elbow extension, elbow flexion, wrist extension, wrist flexion 4/5 strength appreciated bilateral lower extremities with hip flexion, knee extension, knee flexion, plantarflexion, dorsiflexion, EHL, FHL Reflexes: 2/4 in all UE and LE Negative Ivy's bilaterally Negative Babinski bilaterally Negative clonus bilaterally - Labs CBC & Chem 7: 09/11/24 07:32 09/09/24 01:43 Assessment and Plan Assessment: Postoperative day #4 status post [id number] posterior lateral decompression and fusion Acute blood loss anemia, expected surgical outcome, stable Other medical comorbidities Plan: Pain control, will discharge with Percocet 10 mg / 325 mg, gabapentin 300 mg, Robaxin 750 mg. Will also prescribe multiple stool softeners at discharge GI DVT prophylaxis, continue aspirin daily Wound care, discussed with nursing, they will remove Hemovac drains bilaterally prior to discharge today Encourage incentive spirometer Continue PT/OT, weight-bear as tolerated with walker. No bending, lifting or twisting. Brace when walking longer distances Medical recommendations appreciated Discharge planning: plan for discharge to subacute rehab today Time with Patient: Less than 30
--- NOTE | 2024-09-12 12:49 | P.DS ---
Providers Date of admission: 09/08/24 05:46 Expected date of discharge: 09/12/24 Attending physician: Roverto Ly DO Consults: 09/08/24 13:25 Consult Physician Routine Consulting Provider: Alie Patel Consult Reason/Comments: medical management s/p [id number] decompr fusion Do you want consulting provider notified?: Yes 09/09/24 07:10 Consult Physician Routine Consulting Provider: Pedro Cassidy Reason/Comments: hypotension Do you want consulting provider notified?: Already Contacted Primary care physician: Paige [facility] Course: Date of admission: 09/08/2024 Date of discharge: 09/12/2024 Admission diagnosis: Status post [id number] decompression and fusion Discharge diagnosis: Same Attending physician: Dr. Ly Surgical procedures: [id number] posterior lateral decompression and fusion Brief history: Patient is a 74-year-old male with a history of chronic low back pain, bilateral lower extremity weakness and radiculopathy, with multilevel lumbar spondylosis with varying degrees of instability and stenosis. At this point patient has failed conservative treatment measures and has opted to proceed with a elective [id number] posterior lateral decompression and fusion. Hospital course: Details of patient's surgery can be found in operative report. Patient tolerated the procedure well and was subsequently transported to orthopaedic hospital. Patient's orthopeidc and medical care was provided daily. Patient had daily laboratory tests performed for evaluation of overall blood counts. Patient had daily physical therapy to include strengthening range of motion as well as education with walker ambulation. Patient was treated with aspirin, PRAHBU hose and compression stockings for their postoperative DVT prophylaxis during their inpatient stay. Patient was noted to have a relatively uneventful postoperative course. Patient reported satisfactory pain control with oral pain medications by postoperative day 2. Patient showed satisfactory progress with physical therapy. Patient moved steadily through the program and had no difficulty meeting the goals by postoperative day 4. Given patient's otherwise satisfactory course and having met physical therapy goals, plan is to discharge patient subacute rehab on postoperative day 4. Discharge condition/disposition: Patient will be discharged subacute rehab in stable condition. Discharge medications: Instructions are given on resumption of patient's normal daily medications per primary care recommendation, in addition patient will be prescribed Percocet 10 mg / 325 mg, gabapentin 300 mg, Robaxin-750 milligram, MiraLAX 17 g, senna S, Duricef 500 mg, ferrous sulfate 325 mg. Spine Discharge and Recovery Instructions Medications: See medication list All medication refills should be obtained through your primary care doctor or your clinic spine surgeon. Please discuss prescription refills at your follow up appointment. Do not call the hospital for medication refills. Dressing: Leave your dressing in place for a total of 5 days post operatively. Then you may remove your dressing and leave open to air. Keep the area clean and if not able to keep area clean, then cover with sterile gauze and tape. Showering: You may shower 3 days after your procedure allowing soap and water to run over incision. Do not scrub. Do not soak. Blot dry. Follow up: Please confirm a follow up appointment with your surgeon 3 weeks post operatively. Please make an appointment to follow up with your PCP in 1-2 weeks after surgery for evaluation '3 phase, 3-week plan' POST OP WEEKS 1-3 1. Lifting/carrying/pushing/pulling limited to less than 5 pounds. 2. Do not sit for longer than 15 minutes at one time. Get up and walk around. Prolonged sitting is NOT advised. If you lay down, see if you can tolerate laying down on you front (belly side) 3. Walk for periods of 15 minutes = 1 mile but no longer; do it multiple times times each day. 4. Ice your low back after activity. POST OP WEEKS 3-6 1. Lifting limited to less than 20 pounds. 2. Do not sit for longer than 30 minutes at a time. Frequently change positions. Use a sit-to stand workstation or take frequent breaks from sitting if you have returned to work. 3. Walk for 30 minutes each day. If possible, do these three or more times a day POST OP WEEKS 6+ At your 6-week appointment we will give you a physical therapy referral to focus on a core stabilization and strengthening program. You should also work on leg & buttock strengthening, hamstring & quadriceps stretching, and continue a low impact aerobic activity program such as swimming, walking, or riding a stationary bicycle. During the initial 6 weeks after your surgery, you are at the highest risk of re-injuring your spine. You should generally avoid BLT's (bending, lifting and twisting combination motions) and follow the above guidelines to reduce the chance of reinjury. You can anticipate post op appointments in our office at approximately 3 weeks and 6 weeks after your surgery. INCISION CARE: If your incision is not draining you do NOT need to cover it with a dressing. Keep your incision clean, dry and intact. In most cases, we apply skin glue, tian or sutures to the incision at the time of surgery. This will be like a crust or have the appearance of a scab and will fall off in time on its own. The stitches or tian need to be removed at 3 weeks post op appointment. You may begin to shower 3 days after surgery (this allows the glue to coreas well). However, please avoid scrubbing the incision site or peeling off any of the skin glue. This will ensure optimal healing of your incision. Also, during this time avoid soaking the incision area in water - this includes swimming pools, hot tubs or baths. No ointments, lotions or oils on the incision until your surgeon allows. Leave tian, sutures or glue in place. Neurological dysfunction that comes on suddenly can also be a sign of a stroke. Below some common symptoms of a stroke are listed: B - balance difficulty such as sudden onset walking or leaning to one side - NEW E - eye problem such as sudden double vision or trouble seeing on one side - NEW F - Facial weakness or numbness on one side - NEW A - Arm or leg weakness or numbness on one side - NEW S - Slurred speech or difficulty with word finding - NEW T - Time is BRAIN! Call 911 as soon as you recognize these symptoms Diet: Consume a regular diet rich in vegetables and lean protein such as chicken or fish. You should consume in a ratio of approximately 20% fats|40% carbohydrates|40%protein. Vegetables, sweet potatoes, brown rice or quinoa are examples of good carbohydrates. Chips, white bread, cookies and sweets/sugar are examples of bad carbohydrates. Limit your bad carbs, go wild with good carbs. "Life's Simple 7" Guidelines as per [place] [employer] These will help you reclaim your life after surgery and molder helper in your recovery, keeping in mind your restrictions. (1) Get Active. Physical activity can help people lose weight, control high blood pressure and cholesterol, feel emotionally better, and sleep better. (2) Control Cholesterol. Avoid a diet high in saturated fat, trans fat, & cholesterol. Limit whole milk & cream, ice cream, butter, egg yolks, processed meats (like sausage and hot dogs), and fatty meats. Choose healthy foods that are low in saturated fat, trans fat and cholesterol which include: Fruits and vegetables, fiber rich grain products (like whole grain pasta and brown rice), lean meat such as chicken, fish, nuts, seeds, and legumes. (3) Eat Better. Eat small portions. Shop at the grocery with a list and do not stray from it. Tips for a healthy diet include: Limit sodium intake to less than 1500mg daily, avoid prepackaged, processed, and fast foods, choose a diet rich in fruits, vegetables, and whole grain, high fiber foods, and limit saturated & cholesterol in your diet. (4) Manage Blood Pressure. If you have high blood pressure, you should have a cuff at home so that you can check your blood pressure regularly. Be sure you have a good cuff. An arm one is generally better than a wrist one. Bring the cuff to a doctor's appointment to validate that the measurements that your cuff are taking are accurate. Take your blood pressure twice daily when you are sitting down and relaxing. Record the numbers in a log and bring this log with you to your doctors' appointments. (5) Lose Weight if your BMI is above 25. A healthy BMI is between 19-25. To calculate Your BMI, you may use a Standard BMI Calculator on the NIH BMI website: <www.nhlbi.nih.gov/guidelines/obesity/BMI/bmicalc.htm>. Weigh oneself daily. If you are overweight, set a goal to lose weight. A pound a week loss if needed is a good target. (6) Reduce Blood Sugar. Limit foods and liquids with "added sugars." (Added sugars include sucrose, fructose, glucose, maltose, dextrose, high fructose corn syrup, corn syrup, concentrated fruit juice and honey). (7) Stop Smoking. If you smoke, quitting smoking is one of the best things that you can do for your health. Smoking increases your risk of heart attack, stroke, and peripheral vascular disease, which is a build-up of plaque in your arteries. Please discard all the cigarettes and lighters in your house. Have a plan for what you will do when you have the urge to smoke. Direct and second- hand smoke shortens your life as well as the lives of your family, friends and others around you. For your health and the health of those around you, please consider quitting! Proper Bending Body Mechanics: Maintain a wide stance with one foot slightly in front of the other. Keep your back straight. Bend utilizing the strength in your hips and knees. Do not bend at the waist. Maintain the lifted object at your waist-level close to your body. Avoid lifting weight that causes immediately pain or pain anywhere in the body afterwards. Smoking/Nicotine If there was ever one thing that you could do to increase your overall health, decrease your risk of cardiovascular problems by about 39% the second you make the choice, it is to STOP SMOKING. Your body's most instant gratification is the second you stop smoking. We have all heard the studies, read the articles but it is true, smoking is extremely bad for your overall health, and moreover it is detrimental to your bone health. Nicotine, IN ANY FORM, kills bone cells, prevents your body from healing fractures, and significantly prolongs healing after surgery. In spine surgery specifically, it increases your risk of not healing your bones to create a fusion and increases your risk of having a revision surgery due to this up to 60%. I know it is hard. I know it feels impossible. But there are ways. Take control of your life. We are here to help you through it. And when you are ready, ask us and we can direct you to help if you desire. Use the START Plan to Quit Smoking (please visit the Helpguide.org website listed below for more information): S = Set a quit date. Choose a date within the next 2 weeks, so you have enough time to prepare without losing your motivation to quit. If you mainly smoke at work, quit on the weekend, so you have a few days to adjust to the change. T = Tell family, friends, and co-workers that you plan to quit. Let your friends and family in on your plan to quit smoking and tell them you need their support and encouragement to stop. Look for a quit salvatore who wants to stop smoking as well. You can help each other get through the rough times. A = Anticipate and plan for the challenges you'll face while quitting. Most people who begin smoking again do so within the first 3 months. You can help yourself make it through by preparing ahead for common challenges, such as nicotine withdrawal and cigarette cravings. R = Remove cigarettes and other tobacco products from your home, car, and work. Throw away all your cigarettes (no emergency pack!), lighters, ashtrays, and matches. Wash your clothes and freshen up anything that smells like smoke. Shampoo your car, clean your drapes and carpet, and steam your furniture. T = Talk to your doctor about getting help to quit. Your doctor can prescribe medication to help with withdrawal and suggest other alternatives. If you can't see a doctor, you can get many products over the counter at your local pharmacy or grocery store, including the nicotine patch, nicotine lozenges, and nicotine gum. Resources for Quitting Smoking: <https://www.[place].gov/documents/[facility]/Quit_Tobacco_Resources_for_patients_313 480_7.pdf> Supplementation: Take recommended dosages of Vitamin D and Calcium to help fortify your bones and help them to heal. See your health maintenance packet for dosages and recommended levels. DVT/VTE prophylaxis: You will be given compression stockings from the hospital. Wear these daily for the first two weeks after surgery. You may take them off at night. You may be prescribed a medication to help thin your blood. Take this as directed. If you are not prescribed this medication, early and frequent ambulation has been shown to be the best prophylaxis to deep vein thrombosis and sequelae related to this event. Procedures: [id number] posterior lateral decompression and fusion Patient Condition at Discharge: Good Plan - Discharge Summary Discharge Rx Participant: No New Discharge Prescriptions: New polyethylene glycoL 3350 [Miralax] 17 gm PO DAILY PRN #21 packet PRN Reason: Constipation oxyCODONE HCL/ACETAMINOPHEN [Percocet 10-325 mg] 1 tab PO Q6HR PRN 7 Days #28 tab PRN Reason: Pain methocarbamoL [Robaxin-750] 750 mg PO TID PRN #30 tab PRN Reason: Muscle Spasm Sennosides/Docusate Sodium [Senna-S 8.6-50 mg Tablet] 2 each PO DAILY PRN #30 tablet PRN Reason: Constipation cefaDROXiL [Duricef] 500 mg PO Q12HR 5 Days #10 cap Ferrous Sulfate [Iron (65 MG Elemental)] 325 mg PO DAILY #30 tab Gabapentin [Neurontin] 300 mg PO TID 3 Days #30 cap No Action Multivit-Min/FA/Lycopen/Lutein [Centrum Silver Tablet] 1 each PO QAM tiZANidine [Zanaflex] 4 mg PO BID PRN 30 Days #60 tab PRN Reason: Muscle Spasm Lovastatin [Mevacor] 20 mg PO QAM Lisinopril-Hctz 20-12.5 mg [Zestoretic 20-12.5] 1 tab PO QAM Levothyroxine Sodium [Synthroid] 50 mcg PO DAILY Aspirin 81 mg PO QAM oxyCODONE HCL/ACETAMINOPHEN [Percocet 5-325 mg] 1 tab PO Q4HR PRN 3 Days #18 tab PRN Reason: Pain Discharge Medication List Levothyroxine Sodium [Synthroid] 50 mcg PO DAILY 01/10/21 [History] Lisinopril-Hctz 20-12.5 mg [Zestoretic 20-12.5] 1 tab PO QAM 01/10/21 [History] Lovastatin [Mevacor] 20 mg PO QAM 01/10/21 [History] Aspirin 81 mg PO QAM 11/14/23 [History] Multivit-Min/FA/Lycopen/Lutein [Centrum Silver Tablet] 1 each PO QAM 11/14/23 [History] tiZANidine [Zanaflex] 4 mg PO BID PRN 30 Days #60 tab 07/03/24 [Rx] oxyCODONE HCL/ACETAMINOPHEN [Percocet 5-325 mg] 1 tab PO Q4HR PRN 3 Days #18 tab 08/28/24 [Rx] Ferrous Sulfate [Iron (65 MG Elemental)] 325 mg PO DAILY #30 tab 09/12/24 [Rx] Gabapentin [Neurontin] 300 mg PO TID 3 Days #30 cap 09/12/24 [Rx] Sennosides/Docusate Sodium [Senna-S 8.6-50 mg Tablet] 2 each PO DAILY PRN #30 tablet 09/12/24 [Rx] cefaDROXiL [Duricef] 500 mg PO Q12HR 5 Days #10 cap 09/12/24 [Rx] methocarbamoL [Robaxin-750] 750 mg PO TID PRN #30 tab 09/12/24 [Rx] oxyCODONE HCL/ACETAMINOPHEN [Percocet 10-325 mg] 1 tab PO Q6HR PRN 7 Days #28 tab 09/12/24 [Rx] polyethylene glycoL 3350 [Miralax] 17 gm PO DAILY PRN #21 packet 09/12/24 [Rx] Follow up Appointment(s)/Referral(s): Roverto Ly DO [Doctor of Osteopathic Medicine] - 09/24/24 9:30 am Activity/Diet/Wound Care/Special Instructions: Spine Discharge and Recovery Instructions Medications: See medication list All medication refills should be obtained through your primary care doctor or your clinic spine surgeon. Please discuss prescription refills at your follow up appointment. Do not call the hospital for medication refills. Dressing: Leave your dressing in place for a total of 5 days post operatively. Then you may remove your dressing and leave open to air. Keep the area clean and if not able to keep area clean, then cover with sterile gauze and tape. Showering: You may shower 3 days after your procedure allowing soap and water to run over incision. Do not scrub. Do not soak. Blot dry. Follow up: Please confirm a follow up appointment with your surgeon 3 weeks post operatively. Please make an appointment to follow up with your PCP in 1-2 weeks after surgery for evaluation '3 phase, 3-week plan' POST OP WEEKS 1-3 1. Lifting/carrying/pushing/pulling limited to less than 5 pounds. 2. Do not sit for longer than 15 minutes at one time. Get up and walk around. Prolonged sitting is NOT advised. If you lay down, see if you can tolerate laying down on you front (belly side) 3. Walk for periods of 15 minutes = 1 mile but no longer; do it multiple times times each day. 4. Ice your low back after activity. POST OP WEEKS 3-6 1. Lifting limited to less than 20 pounds. 2. Do not sit for longer than 30 minutes at a time. Frequently change positions. Use a sit-to stand workstation or take frequent breaks from sitting if you have returned to work. 3. Walk for 30 minutes each day. If possible, do these three or more times a day POST OP WEEKS 6+ At your 6-week appointment we will give you a physical therapy referral to focus on a core stabilization and strengthening program. You should also work on leg & buttock strengthening, hamstring & quadriceps stretching, and continue a low impact aerobic activity program such as swimming, walking, or riding a stationary bicycle. During the initial 6 weeks after your surgery, you are at the highest risk of re-injuring your spine. You should generally avoid BLT's (bending, lifting and twisting combination motions) and follow the above guidelines to reduce the chance of reinjury. You can anticipate post op appointments in our office at approximately 3 weeks and 6 weeks after your surgery. INCISION CARE: If your incision is not draining you do NOT need to cover it with a dressing. Keep your incision clean, dry and intact. In most cases, we apply skin glue, tian or sutures to the incision at the time of surgery. This will be like a crust or have the appearance of a scab and will fall off in time on its own. The stitches or tian need to be removed at 3 weeks post op appointment. You may begin to shower 3 days after surgery (this allows the glue to coreas well). However, please avoid scrubbing the incision site or peeling off any of the skin glue. This will ensure optimal healing of your incision. Also, during this time avoid soaking the incision area in water - this includes swimming pools, hot tubs or baths. No ointments, lotions or oils on the incision until your surgeon allows. Leave tian, sutures or glue in place. Neurological dysfunction that comes on suddenly can also be a sign of a stroke. Below some common symptoms of a stroke are listed: B - balance difficulty such as sudden onset walking or leaning to one side - NEW E - eye problem such as sudden double vision or trouble seeing on one side - NEW F - Facial weakness or numbness on one side - NEW A - Arm or leg weakness or numbness on one side - NEW S - Slurred speech or difficulty with word finding - NEW T - Time is BRAIN! Call 911 as soon as you recognize these symptoms Diet: Consume a regular diet rich in vegetables and lean protein such as chicken or fish. You should consume in a ratio of approximately 20% fats|40% carbohydrates|40%protein. Vegetables, sweet potatoes, brown rice or quinoa are examples of good carbohydrates. Chips, white bread, cookies and sweets/sugar are examples of bad carbohydrates. Limit your bad carbs, go wild with good carbs. "Life's Simple 7" Guidelines as per [place] [employer] These will help you reclaim your life after surgery and molder helper in your recovery, keeping in mind your restrictions. (1) Get Active. Physical activity can help people lose weight, control high blood pressure and cholesterol, feel emotionally better, and sleep better. (2) Control Cholesterol. Avoid a diet high in saturated fat, trans fat, & cholesterol. Limit whole milk & cream, ice cream, butter, egg yolks, processed meats (like sausage and hot dogs), and fatty meats. Choose healthy foods that are low in saturated fat, trans fat and cholesterol which include: Fruits and vegetables, fiber rich grain products (like whole grain pasta and brown rice), lean meat such as chicken, fish, nuts, seeds, and legumes. (3) Eat Better. Eat small portions. Shop at the grocery with a list and do not stray from it. Tips for a healthy diet include: Limit sodium intake to less than 1500mg daily, avoid prepackaged, processed, and fast foods, choose a diet rich in fruits, vegetables, and whole grain, high fiber foods, and limit saturated & cholesterol in your diet. (4) Manage Blood Pressure. If you have high blood pressure, you should have a cuff at home so that you can check your blood pressure regularly. Be sure you have a good cuff. An arm one is generally better than a wrist one. Bring the cuff to a doctor's appointment to validate that the measurements that your cuff are taking are accurate. Take your blood pressure twice daily when you are sitting down and relaxing. Record the numbers in a log and bring this log with you to your doctors' appointments. (5) Lose Weight if your BMI is above 25. A healthy BMI is between 19-25. To calculate Your BMI, you may use a Standard BMI Calculator on the NIH BMI website: <www.nhlbi.nih.gov/guidelines/obesity/BMI/bmicalc.htm>. Weigh oneself daily. If you are overweight, set a goal to lose weight. A pound a week loss if needed is a good target. (6) Reduce Blood Sugar. Limit foods and liquids with "added sugars." (Added sugars include sucrose, fructose, glucose, maltose, dextrose, high fructose corn syrup, corn syrup, concentrated fruit juice and honey). (7) Stop Smoking. If you smoke, quitting smoking is one of the best things that you can do for your health. Smoking increases your risk of heart attack, stroke, and peripheral vascular disease, which is a build-up of plaque in your arteries. Please discard all the cigarettes and lighters in your house. Have a plan for what you will do when you have the urge to smoke. Direct and second- hand smoke shortens your life as well as the lives of your family, friends and others around you. For your health and the health of those around you, please consider quitting! Proper Bending Body Mechanics: Maintain a wide stance with one foot slightly in front of the other. Keep your back straight. Bend utilizing the strength in your hips and knees. Do not bend at the waist. Maintain the lifted object at your waist-level close to your body. Avoid lifting weight that causes immediately pain or pain anywhere in the body afterwards. Smoking/Nicotine If there was ever one thing that you could do to increase your overall health, decrease your risk of cardiovascular problems by about 39% the second you make the choice, it is to STOP SMOKING. Your body's most instant gratification is the second you stop smoking. We have all heard the studies, read the articles but it is true, smoking is extremely bad for your overall health, and moreover it is detrimental to your bone health. Nicotine, IN ANY FORM, kills bone cells, prevents your body from healing fractures, and significantly prolongs healing after surgery. In spine surgery specifically, it increases your risk of not healing your bones to create a fusion and increases your risk of having a revision surgery due to this up to 60%. I know it is hard. I know it feels impossible. But there are ways. Take control of your life. We are here to help you through it. And when you are ready, ask us and we can direct you to help if you desire. Use the START Plan to Quit Smoking (please visit the Helpguide.org website listed below for more information): S = Set a quit date. Choose a date within the next 2 weeks, so you have enough time to prepare without losing your motivation to quit. If you mainly smoke at work, quit on the weekend, so you have a few days to adjust to the change. T = Tell family, friends, and co-workers that you plan to quit. Let your friends and family in on your plan to quit smoking and tell them you need their support and encouragement to stop. Look for a quit salvatore who wants to stop smoking as well. You can help each other get through the rough times. A = Anticipate and plan for the challenges you'll face while quitting. Most people who begin smoking again do so within the first 3 months. You can help yourself make it through by preparing ahead for common challenges, such as nicotine withdrawal and cigarette cravings. R = Remove cigarettes and other tobacco products from your home, car, and work. Throw away all your cigarettes (no emergency pack!), lighters, ashtrays, and matches. Wash your clothes and freshen up anything that smells like smoke. Shampoo your car, clean your drapes and carpet, and steam your furniture. T = Talk to your doctor about getting help to quit. Your doctor can prescribe medication to help with withdrawal and suggest other alternatives. If you can't see a doctor, you can get many products over the counter at your local pharmacy or grocery store, including the nicotine patch, nicotine lozenges, and nicotine gum. Resources for Quitting Smoking: <https://www.[place].gov/documents/[facility]/Quit_Tobacco_Resources_for_patients_313 480_7.pdf> Supplementation: Take recommended dosages of Vitamin D and Calcium to help fortify your bones and help them to heal. See your health maintenance packet for dosages and recommended levels. DVT/VTE prophylaxis: You will be given compression stockings from the hospital. Wear these daily for the first two weeks after surgery. You may take them off at night. You may be prescribed a medication to help thin your blood. Take this as directed. If you are not prescribed this medication, early and frequent ambulation has been shown to be the best prophylaxis to deep vein thrombosis and sequelae related to this event. Discharge Disposition: TRANSFER TO SNF/ECF
[2024-09-12 14:00] VITALS: BP 126/74; PULSE 103; TEMP 98
--- NOTE | 2024-09-12 15:09 | P.PN ---
Subjective Progress Note Date: 09/12/24 Principal diagnosis: ICU management. Pulmonary consult dated September 09, 2024. 74-year-old male postop day #1, status post T10 to pelvic decompression and fusion. The patient had some instability in the post anesthesia care unit, characterized by respiratory difficulty, and hypotension. The patient arrived to the intensive care unit yesterday, on Miguel Angel-Synephrine for blood pressure support, and on BiPAP, for respiratory support. We were asked to see the patient for ICU management. Today, he is seen in room 262. The patient is currently on 2 L of oxygen. He is getting saline at 100 cc an hour. He appears to be relatively stable this morning. He has no specific complaints. Current laboratory data includes a white count of 16.7, hemoglobin 10.7, hematocrit 30.6, and platelet count of 132,000. PT 13, INR 1.2, and PTT is 21.9. Blood gases from yesterday show pO2 of 199, pCO2 49, pH is 7.23. Apparently these blood gases were done on 44% oxygen. Sodium 134, potassium 4, chlorides 102, CO2 24, BUN 16, creatinine 0.83. Glucose is 143. Calcium is 8. Magnesium 1.8. Progress note dated September 10, 2024. 74-year-old gentleman who is seen today in room 452. The patient is resting comfortably. He is sitting in the chair next to the hospital bed. He is on room air. He is getting saline at 100 cc an hour. He has no specific complaints. The patient is postoperative day #2, status post T10 to pelvis decompression and fusion. Initially when he came back to the intensive care unit, he was on BiPAP, and receiving Miguel Angel-Synephrine for blood pressure support. Current labs include a white count 14.88, hemoglobin 8.3, hematocrit 25, and a platelet count of 112,000. No additional labs are noted. The patient is seen today September 11, 2024 in follow-up on the regular medical floor. He is currently sitting up in bed. Awake and alert in no acute distr ess. Maintaining O2 saturations in the 90s on 2 L/min per nasal cannula. 0.9 normal staying at 20 mL/h. White count 12.0. Hemoglobin 9.5. Platelets 133. His pain is well-managed. He is working with physical therapy. Progress note dated September 12, 2024. 74-year-old gentleman seen in room 452. The patient remains on room air. He is not receiving any IV fluids. The patient is being evaluated for possible transfer to, one of the local nursing homes. He denies any shortness of breath or difficulty breathing. He is not having any pain to any great extent. No new laboratory data today. The lab data from yesterday, have been reviewed. Objective - Vital Signs Vital signs: Vital Signs Temp 98 F 09/12/24 13:32 Pulse 103 H 09/12/24 13:32 Resp 18 09/12/24 13:32 BP 126/74 09/12/24 13:32 Pulse Ox 95 09/12/24 13:32 FiO2 40 09/08/24 20:34 Intake & Output 09/11/24 09/12/24 09/12/24 18:59 06:59 18:59 Intake Total 140 300 Output Total 9293 417 9277 Balance -1450 0 -2140 Intake: IV 140 Sodium Chloride 0.9% 1, 140 000 ml @ 100 mls/hr IV . Q10H MANUEL Rx#:[id number] Oral 300 Output: Drainage 140 140 140 Left Lower Back 40 100 100 Right Lower Posterior 100 40 40 Back Urine 1310 2100 Uretheral (Martinez) 1310 Emesis 200 Other: Voiding Method Indwelling Catheter Indwelling Catheter # Voids 3 3 3 ABP, PAP, CO, CI - Last Documented Arterial Blood Pressure 101/47 - Exam No acute distress, oriented 3. HEENT examination is grossly unremarkable. Mucous membranes are moist. No oral lesions. Neck supple. Full range of motion. No adenopathy thyromegaly or neck vein distention. Cardiovascular examination reveals regular rhythm rate. S1-S2 normal. No S3 or S4. No discernible murmur noted. Lungs reveal clear breath sounds. Breath sounds are equal bilaterally. No adventitious lung sounds including wheezes rhonchi or crackles. Abdomen soft bowel sounds are heard. No masses or tenderness. Extremities are intact. No cyanosis clubbing or edema. Skin is without rash or lesion. Neurologic examination is brief but nonfocal. - Labs CBC & Chem 7: 09/11/24 07:32 09/09/24 01:43 Assessment and Plan Assessment: Postop day #3, S/P T10 to pelvic decompression and fusion. Postoperative hypotension, and respiratory difficulty, requiring Miguel Angel-Synephrine, and BiPAP support. History of chronic back pain. History of hypertension. History of hyperlipidemia. History of hypothyroidism. Plan: Plan dated September 09, 2024. The patient is seen today in the intensive care unit, room 262. The patient had a procedure, including a T10 to pelvis decompression and fusion, and is currently postoperative day #1. The patient has some instability in the postanesthesia care unit, and required Miguel Angel-Synephrine for blood pressure support, and BiPAP, for respiratory support. The patient is currently resting comfortably in the ICU. He is on 2 L of oxygen. He is getting saline at 100 cc an hour. Labs, x-rays, and medications are reviewed. Clinically the patient is stable could be transferred out of the intensive care unit. No additional recommendations are made. We will continue to follow. Plan dated September 10, 2024. The patient is seen today in room 452. The patient is sitting in a chair next to the hospital bed. He is on room air. He is getting saline at 100 cc an hour. Current labs are reviewed. Everything appears to be in order. The patient is not having any respiratory issues including shortness of breath, cough, wheezing, chest tightness, or phlegm production. We will continue to follow make recommendations along the way. He was initially unstable which is why he came back to the intensive care unit. Currently, he is doing very well, with stable vital signs. He is awake and alert. Prognosis is thought to be good. Plan dated September 12, 2024. The patient is seen in room 452. The patient is looking well, and has no specific complaints. He is on room air. Is not receiving any IV fluids. Labs, x-rays, and all medications are reviewed. The patient is being evaluated for possible discharge sometime later today, to a local residential. We will cont inue to follow, make recommendations along the way. His respiratory status is stable. Time with Patient: Less than 30
[2024-09-13] MEDS ORDERED: LISINOPRIL-HCTZ 20-12.5 MG 1 EACH TAB PO SCH (09:00)
--- NOTE | 2024-09-17 12:48 | CDI ---
Documentation Clarification Form Date: 09/17/2024 12:20:06 PM From: Katherine Sanchez RN, CCDS Email: [email or web address] Admit Date: 09/08/2024 05:46:00 AM Patient Name: Wally Calderon Visit Number: [id number] Discharge Date: 09/12/2024 04:07:00 PM ATTENTION: The Clinical Documentation Specialists (CDI) and [facility] Coding Staff appreciate your assistance in clarifying documentation. Please respond to the clarification below the line at the bottom and electronically sign. The CDI & [facility] Coding staff will review the response and follow-up if needed. Please note: Queries are made part of the Legal Health Record. If you have any questions, please contact the author of this message via ITS. Doctor Perdo Cassidy The patient had some instability in the post anesthesia care unit, and required Miguel Angel-Synephrine for blood pressure support, and BiPAP for respiratory support. Based on this information and the findings below, is there an additional diagnosis that is clinically appropriate for this patient? Patient history/risk factors: GI Bleed, Hyperlipidemia, Hypertension, Sleep Apnea/CPAP/BIPAP, Thyroid Disorder. S/P T10 to pelvic decompression and fusion. Clinical Indicators: 09/08 pulse ox: 77%, RR 32 09/08 ABG@13:05: pH 7.35 pCO2 46 HCO3 25 lactic acid 3.0 09/08 ABG@15:28: pH 7.23 pCO2 49 HCO3 20 09/09 CCU: "The patient had some instability in the post anesthesia care unit, characterized by respiratory difficulty, and hypotension. The patient arrived to the intensive care unit yesterday, on Miguel Angel-Synephrine for blood pressure support, and on BiPAP, for respiratory support." Treatment: Bipap support initially then 2LNC Is there an additional diagnosis that is clinically appropriate for this patient? [ ] Acute pulmonary insufficiency following spinal fusion [ ] No additional diagnosis/Not clinically significant [ X] Unable to determine [ ] Other, please specify MTDD
--- NOTE | 2024-10-01 08:12 | CDI ---
Documentation Clarification Form Date: 09/17/2024 12:20:00 PM From: Katherine Sanchez RN, CCDS Email: [email or web address] Admit Date: 09/08/2024 05:46:00 AM Patient Name: Wally Calderon Visit Number: [id number] Discharge Date: 09/12/2024 04:07:00 PM ATTENTION: The Clinical Documentation Specialists (CDI) and [facility] Coding Staff appreciate your assistance in clarifying documentation. Please respond to the clarification below the line at the bottom and electronically sign. The CDI & [facility] Coding staff will review the response and follow-up if needed. Please note: Queries are made part of the Legal Health Record. If you have any questions, please contact the author of this message via ITS. Doctor Silvia Archibald The patient had some instability in the post anesthesia care unit, and required Miguel Angel-Synephrine for blood pressure support, and BiPAP for respiratory support. Based on this information and the findings below, is there an additional diagnosis that is clinically appropriate for this patient? Patient history/risk factors: GI Bleed, Hyperlipidemia, Hypertension, Sleep Apnea/CPAP/BIPAP, Thyroid Disorder. S/P T10 to pelvic decompression and fusion. Clinical Indicators: 09/08 pulse ox: 77%, RR 32 09/08 ABG@13:05: pH 7.35 pCO2 46 HCO3 25 lactic acid 3.0 09/08 ABG@15:28: pH 7.23 pCO2 49 HCO3 20 09/09 CCU: "The patient had some instability in the post anesthesia care unit, characterized by respiratory difficulty, and hypotension. The patient arrived to the intensive care unit yesterday, on Miguel Angel-Synephrine for blood pressure support, and on BiPAP, for respiratory support." Treatment: Bipap support initially then 2LNC Is there an additional diagnosis that is clinically appropriate for this patient? [ x ] Acute pulmonary insufficiency following spinal fusion [ ] No additional diagnosis/Not clinically significant [ ] Unable to determine [ ] Other, please specify MTDD
--- NOTE | 2024-11-17 11:29 | CDI ---
Documentation Clarification Form Date: 11/17/2024 From: Abdulaziz Montano Admit Date: 09/08/2024 05:46:00 AM Patient Name: Wally Calderon Visit Number: [id number] Discharge Date: 09/12/2024 04:07:00 PM ATTENTION: The Clinical Documentation Specialists (CDI) and [facility] Coding Staff appreciate your assistance in clarifying documentation. Please respond to the clarification below the line at the bottom and electronically sign. The CDI & [facility] Coding staff will review the response and follow-up if needed. Please note: Queries are made part of the Legal Health Record. If you have any questions, please contact the author of this message via ITS. Dr. Malachi DO., Postop Hypotension is documented per the 09/09 Consult note and the patient had multiple procedures on 09/08. Additional clarification is requested regarding the relationship, if any, that exists between the diagnosis and the procedures. History/Risk Factors: 74-year-old male with past medical history of CARLOS EDUARDO on CPAP, morbid obesity, hypertension, hyperlipidemia who hypothyroidism, status post umbilical hernia repair, status post bilateral surgical treatment of carpal tunnel syndrome, severe chronic lumbar pain with bilateral lower extremity radiculopathy and right foot numbness, severe multilevel spondylosis, grade 2 spondylolisthesis L4-L5 with severe central and foraminal stenosis, who presented for elective T10 to pelvis, lateral and interbody fusion with decompression was performed on 09/08/2024. Clinical Indicators: 09/08 Operative note: Procedure: [id number] Posterolateral And Interbody Fusion With Decompression - Estimated Blood Loss (ml): 1,250, IV fluids (ml): 3,200 09/09 Dr. Archibald Consult: Postop Hypotension - Patient is hypotensive with BP 104/60. miguel angel-synephrine off since 09/09 AM 09/09 Pulmonology consult: Postoperative hypotension, and respiratory difficulty, requiring Miguel Angel-Synephrine, and BiPAP support. The patient had some instability in the post anesthesia care unit, characterized by respiratory difficulty, and hypotension. The patient arrived to the intensive care unit yesterday, on Miguel Angel-Synephrine for blood pressure support 09/11 Dr. Archibald note: patient was transferred to ICU due to hypotension. Transfusion of 2 PRBC after the surgery. Patient was transferred from ICU on 09/09 with stable vitals, no respiratory distress, pulmonology following along. Due to ongoing postop blood loss anemia, received 1 more unit of PRBC on 09/10/202409/12 Dr. Archibald note: Postop Hypotension, resolved Treatment: Miguel Angel-Synephrine gtt (09/08-09/09), 3 Units PRBCs, ICU transfer and management. What relationship, if any, exists between the diagnosis of Postoperative hypotension and the procedure: [ ] Postoperative hypotension is due to and is a complication of the procedures on 09/08 [ ] Postoperative hypotension is not due to and is not a complication of the procedures on 09/08 [ ] Postoperative hypotension is due to anemia and is not a complication of the procedures on 09/08 [ ] Other please specify ____ [ ] Unable to determine (Template Last Revised: August 2024) POST OPERATIVE HYPOTENSION IS AN EXPECTED OUTCOME GIVEN THE PATIENTS COMORBID CONDITIONS, TIME UNDER ANESTHESIA WITH LIKELY DYSREGULATION, THE EXTENSIVE SPINAL SURGERY THAT HE UNDERWENT AND IS NOT A COMPLICATION OF SURGERY. [facility]
== END 2024-09-12 16:07 | DRG 426 ==
LOC: 2ORMAIN 05:46 → 2SICU 15:49 → 4SSUR 09-09 18:17
PROVIDERS: ADMIT Orthopaedic Surgery; ATTEND Orthopaedic Surgery
PROC: 0SG1071 Fusion of 2 or more Lumbar Vertebral Joints with Autologous Tissue Substitute, Posterior Approach, Posterior Column, Open Approach (ICD-10-PCS; 2024-09-08)
PROC: 0SG30AJ Fusion of Lumbosacral Joint with Interbody Fusion Device, Posterior Approach, Anterior Column, Open Approach (ICD-10-PCS; 2024-09-08)
PROC: 0SG3071 Fusion of Lumbosacral Joint with Autologous Tissue Substitute, Posterior Approach, Posterior Column, Open Approach (ICD-10-PCS; 2024-09-08)
PROC: 0ST20ZZ Resection of Lumbar Vertebral Disc, Open Approach (ICD-10-PCS; 2024-09-08)
PROC: 0ST40ZZ Resection of Lumbosacral Disc, Open Approach (ICD-10-PCS; 2024-09-08)
PROC: 01NB0ZZ Release Lumbar Nerve, Open Approach (ICD-10-PCS; 2024-09-08)
PROC: 01NR0ZZ Release Sacral Nerve, Open Approach (ICD-10-PCS; 2024-09-08)
PROC: 0SH804Z Insertion of Internal Fixation Device into Left Sacroiliac Joint, Open Approach (ICD-10-PCS; 2024-09-08)
PROC: 0SH704Z Insertion of Internal Fixation Device into Right Sacroiliac Joint, Open Approach (ICD-10-PCS; 2024-09-08)
PROC: 3E0U0GB Introduction of Recombinant Bone Morphogenetic Protein into Joints, Open Approach (ICD-10-PCS; 2024-09-08)
PROC: 4A11X4G Monitoring of Peripheral Nervous Electrical Activity, Intraoperative, External Approach (ICD-10-PCS; 2024-09-08)
PROC: 8E0WXBG Computer Assisted Procedure of Trunk Region, With Computerized Tomography (ICD-10-PCS; 2024-09-08)
PROC: 02HV33Z Insertion of Infusion Device into Superior Vena Cava, Percutaneous Approach (ICD-10-PCS; 2024-09-08)
PROC: 4A133B1 Monitoring of Arterial Pressure, Peripheral, Percutaneous Approach (ICD-10-PCS; 2024-09-08)
PROC: 4A133J1 Monitoring of Arterial Pulse, Peripheral, Percutaneous Approach (ICD-10-PCS; 2024-09-08)
PROC: 03HY32Z Insertion of Monitoring Device into Upper Artery, Percutaneous Approach (ICD-10-PCS; 2024-09-08)
PROC: 30233N1 Transfusion of Nonautologous Red Blood Cells into Peripheral Vein, Percutaneous Approach (ICD-10-PCS; 2024-09-08)
PROC: 0SG10AJ Fusion of 2 or more Lumbar Vertebral Joints with Interbody Fusion Device, Posterior Approach, Anterior Column, Open Approach (ICD-10-PCS; principal; 2024-09-08 07:30)
DX: M43.17 Spondylolisthesis, lumbosacral region (principal); J95.2 Acute pulmonary insufficiency following nonthoracic surgery; D69.6 Thrombocytopenia, unspecified; D62 Acute posthemorrhagic anemia; E86.0 Dehydration; E66.01 Morbid (severe) obesity due to excess calories; E03.9 Hypothyroidism, unspecified; I10 Essential (primary) hypertension; Z68.41 Body mass index [BMI] 40.0-44.9, adult; M48.07 Spinal stenosis, lumbosacral region; D72.829 Elevated white blood cell count, unspecified; M47.27 Other spondylosis with radiculopathy, lumbosacral region; G89.29 Other chronic pain; E78.5 Hyperlipidemia, unspecified; G47.33 Obstructive sleep apnea (adult) (pediatric); I95.9 Hypotension, unspecified; Z79.82 Long term (current) use of aspirin; Z79.890 Hormone replacement therapy; M48.062 Spinal stenosis, lumbar region with neurogenic claudication; M25.78 Osteophyte, vertebrae; Z88.6 Allergy status to analgesic agent
CPT/HCPCS: 36430; 72100; 72128; 72131; 80048; 82805; 83735; 85025; 85027; 85610; 85730; 86850; 86900; 86901; 86920; 94760